=== PATIENT | male | born 1930 | race Caucasian/White ===

== ENCOUNTER → 2016-04-14 | Outpatient (CLI) | payer MEDICARE, BC ==
[~2016-04-14] MED LIST: ALBU.5I NEB; ALBU6.7H INH; ALPR.25 PO; ASPI-110 PO; AZIT250T3 PO; CALC600T10 PO; COUM4TAB PO; GLYB2.5T3 PO; IMDU30TA PO; ISOS20TA PO; LEVA750T PO; LISI10TA3 PO; MISC1CAP2 PO; MOME1AER2 INH; MULTTAB67 PO; OMEP20TA PO; PRED20 PO; PRED5TAB PO; THEO300T24 PO; TIOT1AER INH; TOPR50TA PO; ZOCO20TA PO
== END ==
LOC: PLAB 08:13
PROVIDERS: ATTEND Internal Medicine Interventional Cardiology
DX: E78.2 Mixed hyperlipidemia (principal)
CPT/HCPCS: 36415; 80061

== ENCOUNTER 2016-05-01 09:53 | Inpatient (IN) | payer MEDICARE, BC ==
[~2016-05-01] VITALS: Ht 175.3 cm; Wt 64.8 kg
[2016-05-01] VITALS (11 sets, daily range): BP systolic 118–159; BP diastolic 66–97; PULSE 78–101; RESP 16–24; TEMP 97–97.5; O2SAT 89–99
[~2016-05-01 09:53] MED LIST changes: -ISOS20TA PO; -LEVA750T PO; -PRED5TAB PO
--- NOTE | 2016-05-01 10:20 | PD ---
HPI Chief Complaint: Respiratory Symptoms Time Seen by Provider: 10:10 Travel History International Travel<30 days: No Contact w/Intl Traveler<30days: No Traveled to known affect area: No History of Present Illness HPI This 85-year-old male is complaining of shortness of breath. He has a history of COPD. He is on home oxygen at 2-4 L/m. The last few days he's been coughing. He's had increasing dyspnea on exertion. He has not had any chest pain. He has a history of COPD and has had pneumonia on several occasions. He also has a history of coronary artery disease and has had 4 stents in the past. He is currently on 5 mg of prednisone per day. Not aware of any fever or chills. He does have borderline diabetes. He is not bringing anything up when he coughs PFSH Past Medical History Hx Anticoagulant Therapy: Yes (coumadin) Asthma: Yes Atrial Fibrillation: Yes Blood Disorders: No Heart Rhythm Problems: Yes Cancer: No Cardiac Catheterization: Yes Cardiovascular Problems: Yes (htn on meds) High Cholesterol: Yes Chest Pain: No Congestive Heart Failure: No COPD: Yes Coronary Artery Disease: Yes Diabetes: Yes Endocrine: No Genitourinary: Yes Hepatitis: No Hiatal Hernia: No Hypertension: Yes Immune Disorder: No Musculoskeletal: No Neurologic: No Psychiatric: No Respiratory: Yes (copd with oxygen at home) Myocardial Infarction: No Thyroid Disease: No Past Surgical History Abdominal Surgery: Yes AICD: No Appendectomy: Yes Cardiac Surgery: No Cholecystectomy: Yes Coronary Stent: Yes Ear Surgery: No Endocrine Surgery: No Eye Surgery: Yes (RIGHT DETACHED RETINA; BILATERAL CATARACTS) Genitourinary Surgery: No Gynecologic Surgery: No Oral Surgery: No Pacemaker: No Thoracic Surgery: No Tonsillectomy: Yes Other Surgery: Yes Social History Alcohol Use: No Tobacco Use: No Substance Use: No Allergies-Medications (Allergen,Severity, Reaction): Coded Allergies: Codeine (Verified Allergy, Severe, "violently ill", 05/01/16) Lortab (Verified Allergy, Intermediate, n/v, 05/01/16) Tramadol (Verified Allergy, Intermediate, n/v, 05/01/16) Reported Meds & Prescriptions Reported Meds & Active Scripts Active Reported Prednisone 5 Mg Tab 5 Mg PO DAILY Isosorbide Mononitrate 20 Mg Tab 30 Mg PO BID Take 2 doses 7 hours apart. Zocor (Simvastatin) 20 Mg Tab 20 Mg PO HS Xanax (Alprazolam) 0.25 Mg Tab 0.25 Mg PO TID PRN Theophylline SR (Theophylline) 300 Mg Tab 150 Mg PO DAILY [place] (Misc Natural Products) 1 Cap 500 Mg PO DAILY Omeprazole 20 Mg Tab 20 Mg PO DAILY Multiple Vitamin 1 Tab 1 Tab PO DAILY Toprol XL (Metoprolol Succinate) 50 Mg Tab 50 Mg PO DAILY Lisinopril 10 Mg Tab 10 Mg PO DAILY Glyburide 2.5 Mg Tab 2.5 Mg PO DAILY Take with meals at the same time each day Coumadin (Warfarin) 4 Mg Tab 2 Mg PO MOFR Take 1/2 tablet (2mg) on Thursday ,Thu, Thursday Coumadin (Warfarin) 4 Mg Tab 4 Mg PO SUTUWETHSA Take 1 tablet (4mg) on Thursday,Thursday,, and Thursday Calcium + D3 (Calcium Carbonate-Cholecalciferol) 600-200 Mg-Unit Tab 1 Tab PO BID Aspirin 81 (Aspirin) 81 Mg Tabdr 81 Mg PO DAILY Proventil Hfa 6.7 GM Inh (Albuterol Sulfate) 90 Mcg/Act Aer 2 Puff INH DAILY PRN Albuterol Neb (Albuterol Sulfate) 2.5 Mg/0.5 Ml Neb 2.5 Mg NEB TID Note: The Albuterol Sulfate Inhalation Solution is concentrated and must be diluted. Read complete instructions carefully before using. Asmanex 30 Act Twisthaler (Mometasone 30 Act Inh) 220 Mcg/Act Inh 2 Puff INH DAILY Review of Systems General / Constitutional: No: Fever, Chills Eyes: No: Diploplia, Blurred Vision HENT: No: Headaches Cardiovascular: No: Chest Pain or Discomfort, Palpitations Respiratory: Positive: Cough, Shortness of Breath Gastrointestinal: No: Vomiting, Diarrhea Genitourinary: No: Urgency Musculoskeletal: No: Myalgias, Arthralgias Neurologic: No: Weakness, Dizziness Hematologic/Lymphatic: No: Easy Bruising Physical Exam Narrative GENERAL: Well-developed male. Oxygen saturation on arrival is 89% SKIN: Warm and dry. HEAD: Atraumatic. Normocephalic. EYES: Pupils equal and round. No scleral icterus. No injection or drainage. ENT: No nasal bleeding or discharge. Mucous membranes pink and moist. NECK: Trachea midline. No JVD. CARDIOVASCULAR: Regular rate and rhythm. No murmur appreciated. RESPIRATORY: There is accessory muscle use. There are bilateral wheezes and occasional rhonchi. Diminished breath sounds GASTROINTESTINAL: Abdomen soft, non-tender, nondistended. Hepatic and splenic margins not palpable. MUSCULOSKELETAL: No obvious deformities. No clubbing. No cyanosis. No edema. NEUROLOGICAL: Awake and alert. No obvious cranial nerve deficits. Motor grossly within normal limits. Normal speech. PSYCHIATRIC: Appropriate mood and affect; insight and judgment normal. Data Data Last Documented VS Vital Signs Date Time Temp Pulse Resp B/P Pulse Ox O2 Delivery O2 Flow Rate FiO2 05/01/16 11:28 88 18 98 Nasal Cannula 2.00 05/01/16 11:28 118/66 05/01/16 10:05 97.5 Orders Complete Blood Count With Diff (05/01/16 10:18) Comprehensive Metabolic Panel (05/01/16 10:18) B-Type Natriuretic Peptide (05/01/16 10:18) Magnesium (Mg) (05/01/16 10:18) Troponin I (05/01/16 10:18) Urinalysis - C+S If Indicated (05/01/16 10:18) Iv Access Insert/Monitor (05/01/16 10:18) Electrocardiogram (05/01/16 10:18) Ecg Monitoring (05/01/16 10:18) Oximetry (05/01/16 10:18) Oxygen Administration (05/01/16 10:18) Chest, Single Ap (05/01/16 10:18) Sodium Chloride 0.9% Flush (Ns Flush) (05/01/16 10:30) Methylprednisolone So Succ Inj (Solumedr (05/01/16 10:30) Albuterol-Ipratropium Neb (Duoneb Neb) (05/01/16 10:30) Theophylline (Aminophylline) (05/01/16 10:21) Prothrombin Time / Inr (Pt) (05/01/16 10:21) Admit Order (Ed Use Only) (05/01/16 11:46) Labs Laboratory Tests Test 05/01/16 11:10 White Blood Count 7.7 TH/MM3 Red Blood Count 5.05 MIL/MM3 Hemoglobin 15.5 GM/DL Hematocrit 46.0 % Mean Corpuscular Volume 91.2 FL Mean Corpuscular Hemoglobin 30.7 PG Mean Corpuscular Hemoglobin 33.7 % Concent Red Cell Distribution Width 13.3 % Platelet Count 207 TH/MM3 Mean Platelet Volume 7.8 FL Neutrophils (%) (Auto) 68.0 % Lymphocytes (%) (Auto) 14.9 % Monocytes (%) (Auto) 14.1 % Eosinophils (%) (Auto) 2.6 % Basophils (%) (Auto) 0.4 % Neutrophils # (Auto) 5.2 TH/MM3 Lymphocytes # (Auto) 1.1 TH/MM3 Monocytes # (Auto) 1.1 TH/MM3 Eosinophils # (Auto) 0.2 TH/MM3 Basophils # (Auto) 0.0 TH/MM3 CBC Comment DIFF FINAL Differential Comment Prothrombin Time 23.4 SEC Prothromb Time International 2.1 RATIO Ratio Sodium Level 138 MEQ/L Potassium Level 4.3 MEQ/L Chloride Level 101 MEQ/L Carbon Dioxide Level 30.1 MEQ/L Anion Gap 7 MEQ/L Blood Urea Nitrogen 13 MG/DL Creatinine 0.89 MG/DL Estimat Glomerular Filtration 81 ML/MIN Rate Random Glucose 81 MG/DL Calcium Level 8.6 MG/DL Magnesium Level 2.1 MG/DL Total Bilirubin 0.6 MG/DL Aspartate Amino Transf 15 U/L (AST/SGOT) Alanine Aminotransferase 19 U/L (ALT/SGPT) Alkaline Phosphatase 55 U/L Troponin I LESS THAN 0.02 NG/ML B-Type Natriuretic Peptide 110 PG/ML Total Protein 7.0 GM/DL Albumin 3.5 GM/DL [facility] Medical Decision Making Medical Screen Exam Complete: Yes Emergency Medical Condition: Yes Medical Record Reviewed: Yes Differential Diagnosis Differential includes COPD, CHF, pneumonia Narrative Course Chest x-rays read as negative. Patient has been given nebulizer treatments and Solu-Medrol. He still has some respiratory distress. Lungs show minimal improvement in his wheezing. Kaden Hawthorne MD May 01, 2016 10:20
[2016-05-01] MEDS ORDERED: methylPREDNISolone SOD SUCC 125 MG/2 ML VIAL IVP ONE (10:30)
[2016-05-01] MEDS ORDERED: SODIUM CHLORIDE 0.9% FLUSH 5 ML FLUSH IVF PRN ×2 (10:30→12:30)
[2016-05-01] MEDS: RESP: ALBUTEROL 2.5 MG/IPRATROPIUM 0.5 MG NEB (SCH) INH ×2 (10:38→10:39)
[2016-05-01] MEDS ORDERED: ISOS20TA PO (10:55)
[2016-05-01] MEDS ORDERED: PRED5TAB PO (11:02)
--- NOTE | 2016-05-01 11:08 | RADHPO ---
EXAM DATE/TIME: 05/01/2016 10:37 [facility] COMPARISON: CHEST SINGLE AP, February 06, 2016, 10:08. INDICATIONS : Short of breath of breath. MEDICAL HISTORY : Cardiovascular disease. Diabetes mellitus type 1. SURGICAL HISTORY : Appendectomy. Cholecystectomy. ENCOUNTER: Initial ACUITY: 2 days PAIN SCORE: 2/10 LOCATION: Bilateral chest FINDINGS: A single view of the chest demonstrates the lungs to be symmetrically aerated without evidence of mas s, infiltrate or effusion. The cardiomediastinal contours are unremarkable. Osseous structures are intact. CONCLUSION: No acute disease. Zaida Lange MD on May 01, 2016 at 11:06 Board Certified Radiologist. This report was verified electronically.
[2016-05-01 11:20] LABS: AUTOMATED NEUTROPHIL # 5.2 TH/MM3 (1.8-7.7); BASOPHIL % 0.4 % (0.0-2.0); EOSINOPHIL # 0.2 TH/MM3 (0-0.4); EOSINOPHIL % 2.6 % (0.0-4.0); HEMO FLAGS DIFF FINAL; LYMPH % 14.9 % (9.0-44.0); LYMPHOCYTE # 1.1 TH/MM3 (1.0-4.8); MEAN CELL VOLUME 91.2 FL (80.0-100.0); MEAN CORPUSCULAR HEMOGLOBIN 30.7 PG (27.0-34.0); MEAN CORPUSCULAR HGB CONC 33.7 % (32.0-36.0); MONO % 14.1 % (0.0-8.0); PLATELET COUNT 207 TH/MM3 (150-450); RED BLOOD COUNT 5.05 MIL/MM3 (4.50-5.90); RED CELL DISTRIBUTION WIDTH 13.3 % (11.6-17.2); WHITE BLOOD COUNT 7.7 TH/MM3 (4.0-11.0)
[2016-05-01 11:31] LABS: INTERNATIONAL NORMALIZED RATIO 2.1 RATIO; PROTHROMBIN TIME - PATIENT 23.4 SEC (9.8-11.6)
[2016-05-01 11:34] LABS: CHLORIDE 101 MEQ/L (98-107); POTASSIUM 4.3 MEQ/L (3.5-5.1); SODIUM (NA) 138 MEQ/L (136-145)
[2016-05-01 11:38] LABS: ANION GAP 7 MEQ/L (5-15); BICARBONATE 30.1 MEQ/L (21.0-32.0); BLOOD UREA NITROGEN 13 MG/DL (7-18); MAGNESIUM 2.1 MG/DL (1.5-2.5)
[2016-05-01 11:41] LABS: ALT (GPT) 19 U/L (12-78); AST (GOT) 15 U/L (15-37); GLOMERULAR FILTRATION RATE 81 ML/MIN (>89)
[2016-05-01 11:42] LABS: TOTAL BILIRUBIN ADULT 0.6 MG/DL (0.2-1.0)
[2016-05-01 11:44] LABS: ALKALINE PHOSPHATASE 55 U/L (45-117)
[2016-05-01] MEDS ORDERED: RESP: ALBUTEROL 2.5 MG/3 ML NEB (PRN) INH (12:30)
--- NOTE | 2016-05-01 13:36 | HHI.HP ---
cc: James Coombs MD [facility] James Coombs MD Admission Diagnosis COPD EXACERBATION Diagnoses: Chief Complaint: Increased dyspnea on exertion and shortness of breath Travel History International Travel<30 Days: No Contact w/Intl Traveler <30 Da: No Traveled to Known Affected Are: No History of Present Illness Patient is a 85-year-old gentleman with known history of COPD on 2-4 L at home as well as theophylline and bronchodilators. He had increased dyspnea on exertion for the last several days. He notes no chest pain and no nausea or vomiting. 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 Patient was a bit hypoxemic on arrival however at home he does use between 2 and 4 L. Patient had some high type blood pressures which improved with bronchodilation with nebulizer. Patient's been admitted to the hospital for further evaluation and treatment for apparent COPD exacerbation. Review of Systems Constitutional: DENIES: Diaphoretic episodes, Fatigue, Fever, Weight gain, Weight loss, Chills, Dizziness, Change in appetite, Night Sweats Eyes: DENIES: Blurred vision, Diplopia, Eye inflammation, Eye pain, Vision loss , Photosensitivity, Double Vision Ears, nose, mouth, throat: DENIES: Tinnitus, Hearing loss, Vertigo, Nasal discharge, Oral lesions, Throat pain, Hoarseness, Ear Pain, Running Nose, Epistaxis, Sinus Pain, Toothache, Odynophagia Respiratory: COMPLAINS OF: Sputum production, Shortness of breath, DENIES: Apneas, Cough, Snoring, Wheezing, Hemoptysis Cardiovascular: COMPLAINS OF: Dyspnea on Exertion Past Family Social History Past Medical History COPD with HOME O2 AFIB CAD (stents X4) DM2 HTN Past Surgical History Cardiac stents Left knee Right detached retina Bilateral cataracts Reported Medications Reviewed and the medical record, no new medications Allergies: Coded Allergies: Codeine (Verified Allergy, Severe, "violently ill", 05/01/16) Lortab (Verified Allergy, Intermediate, n/v, 05/01/16) Tramadol (Verified Allergy, Intermediate, n/v, 05/01/16) Active Ordered Medications Reviewed in the medical record Family History No respiratory problems with his family Social History Quit smoking in the , no alcohol Physical Exam Vital Signs Vital Signs Date Time Temp Pulse Resp B/P Pulse Ox O2 Delivery O2 Flow Rate FiO2 05/01/16 12:53 90 16 146/84 98 Room Air 2 05/01/16 12:53 90 16 98 Nasal Cannula 2 05/01/16 11:28 88 18 98 Nasal Cannula 2.00 05/01/16 11:28 88 18 118/66 98 Aerosol Mask 8 05/01/16 10:45 98 Nasal Cannula 2.00 05/01/16 10:29 78 22 141/85 98 Nasal Cannula 2 05/01/16 10:19 82 22 98 Nasal Cannula 2 05/01/16 10:15 98 Nasal Cannula 2 05/01/16 10:15 18 98 Nasal Cannula 2 05/01/16 10:05 97.5 89 24 159/94 89 Physical Exam GENERAL: This is a thin, well-developed patient, pursed lip breathing SKIN: No rashes, ecchymoses or lesions. Cool and dry. HEAD: Atraumatic. Normocephalic. No temporal or scalp tenderness. EYES: Pupils equal round and reactive. Extraocular motions intact. No scleral icterus. No injection or drainage. ENT: Nose without bleeding, purulent drainage or septal hematoma. Throat without erythema, tonsillar hypertrophy or exudate. Uvula midline. Airway patent. NECK: Trachea midline. No JVD or lymphadenopathy. Supple, nontender, no meningeal signs. CARDIOVASCULAR: Regular rate and rhythm without murmurs, gallops, or rubs. RESPIRATORY: decreased air flow bilat. No wheezes, rales, or rhonchi. GASTROINTESTINAL: Abdomen soft, non-tender, nondistended. No hepato-splenomegaly , or palpable masses. No guarding. MUSCULOSKELETAL: Extremities without clubbing, cyanosis, or edema. No joint tenderness, effusion, or edema noted. No calf tenderness. Negative Homans sign bilaterally. NEUROLOGICAL: Awake and alert. Cranial nerves II through XII intact. Motor and sensory grossly within normal limits. Five out of 5 muscle strength in all muscle groups. Normal speech. Laboratory Laboratory Tests Test 1/26/17 11:10 White Blood Count 7.7 Red Blood Count 5.05 Hemoglobin 15.5 Hematocrit 46.0 Mean Corpuscular Volume 91.2 Mean Corpuscular Hemoglobin 30.7 Mean Corpuscular Hemoglobin 33.7 Concent Red Cell Distribution Width 13.3 Platelet Count 207 Mean Platelet Volume 7.8 Neutrophils (%) (Auto) 68.0 Lymphocytes (%) (Auto) 14.9 Monocytes (%) (Auto) 14.1 Eosinophils (%) (Auto) 2.6 Basophils (%) (Auto) 0.4 Neutrophils # (Auto) 5.2 Lymphocytes # (Auto) 1.1 Monocytes # (Auto) 1.1 Eosinophils # (Auto) 0.2 Basophils # (Auto) 0.0 CBC Comment DIFF FINAL Differential Comment Prothrombin Time 23.4 Prothromb Time International 2.1 Ratio Sodium Level 138 Potassium Level 4.3 Chloride Level 101 Carbon Dioxide Level 30.1 Anion Gap 7 Blood Urea Nitrogen 13 Creatinine 0.89 Estimat Glomerular Filtration 81 Rate Random Glucose 81 Calcium Level 8.6 Magnesium Level 2.1 Total Bilirubin 0.6 Aspartate Amino Transf 15 (AST/SGOT) Alanine Aminotransferase 19 (ALT/SGPT) Alkaline Phosphatase 55 Troponin I LESS THAN 0.02 B-Type Natriuretic Peptide 110 Total Protein 7.0 Albumin 3.5 Theophylline Level 2.7 Result Diagram: 05/01/16 1110 05/01/16 1110 Imaging Last Impressions Chest X-Ray 05/01/16 1018 Signed Impressions: Service Date/Time: April 10:37 - CONCLUSION: No acute disease. Zaida Lange MD Assessment and Plan Problem List: (1) COPD exacerbation ICD Code: J44.1 Status: Acute Plan: Patient on home O2 for (2-4 L) continue with bronchodilators, IV steroids , IV Levaquin and follow closely Pulmonary consult pending Ptn on Bronchodilators, theophylline at home, follows with [facility] (2) Afib ICD Code: I48.91 Status: Acute Plan: Controlled , cont Coumadin/aspirin and metoprolol (3) DM2 (diabetes mellitus, type 2) ICD Code: E11.9 Status: Acute Physician Certification 2 Midnight Certification Type: Admission for Inpatient Services Order for Inpatient Services The services are ordered in accordance with Medicare regulations or non- Medicare payer requirements, as applicable. In the case of services not specified as inpatient-only, they are appropriately provided as inpatient services in accordance with the 2-midnight benchmark. Estimated LOS (days): 3 3 days is the estimated time the patient will need to remain in the hospital, assuming treatment plan goals are met and no additional complications. Post-Hospital Plan: Rachael Starr MD May 01, 2016 13:36
[2016-05-01] MEDS ORDERED: RESP: ALBUTEROL 2.5 MG/IPRATROPIUM 0.5 MG NEB (PRN) NEB (14:00)
[2016-05-01] MEDS: RESP: ALBUTEROL 2.5 MG/IPRATROPIUM 0.5 MG NEB (SCH) NEB ×2 (15:20→19:36)
[2016-05-01] MEDS ORDERED: WARFARIN SOD 2 MG TAB PO SCH (16:00)
[2016-05-01] MEDS: LEVOFLOXACIN 750 MG PREMIX INJ 150 ML IV SCH (16:11)
[2016-05-01] MEDS: WARFARIN SOD 4 MG TAB PO SCH (16:11)
[2016-05-01 16:44] LABS: BLOOD, URINE TRACE (NEG); GLUCOSE,URINE NEG (NEG); KETONE, URINE 15 mg/dL (NEG); NITRITE,URINE NEG (NEG)
[2016-05-01 16:56] LABS: METHOD OF COLLECTION CLEAN CATCH; URINE COLOR YELLOW (YELLW/STRAW); WBC, URINE 0-2 /hpf (0-5)
[2016-05-01 16:59] LABS: COMMENT (UR) CULT NOT INDICATED; CULTURE IF INDICATED CULT NOT INDICATED; SQUAMOUS EPITHELIAL CELL URINE 0-5 /hpf (0-5)
[2016-05-01 18:32] LABS: BLOOD GAS CARBOXYHEMOGLOBIN 1.6 % (0-4); BLOOD GAS HCO3 25 mmol/L (22-26); BLOOD GAS METHEMOGLOBIN 0.9 % (0-2); BLOOD GAS O2 HGB SATURATION 96 % (90-100); BLOOD GAS OXYGEN CONTENT 20.6 Vol % (12.0-20.0); BLOOD GAS PCO2 42 mmHG (38-42); BLOOD GAS PO2 110 mmHG (61-120); BLOOD GAS TOTAL HGB 15.2 G/DL (12.0-16.0); TEMP CORR TO 98.6
[2016-05-01 18:33] LABS: CRITICAL VALUE NO; DRAW SITE LT RADIAL; LITER FLOW 2 L/M; NUMBER OF ARTERIAL PUNCTURES 1; OXYGEN DEVICE NASAL CANNULA; STAT NO; ULNAR PULSE PRESENT
[2016-05-01] MEDS: PRAVASTATIN SOD 40 MG TAB PO SCH (20:23)
[2016-05-01] MEDS: SODIUM CHLORIDE 0.9% FLUSH 5 ML FLUSH IVF SCH (20:24)
[2016-05-01] MEDS: ALPRAZolam 0.25 MG TAB PO PRN (20:26)
[2016-05-01] MEDS: methylPREDNISolone SOD SUCC 40 MG/1 ML VIAL IV PUSH SCH (20:26)
[2016-05-01] MEDS ORDERED: ISOSORBIDE MONONITRATE 20 MG TAB PO SCH (21:00)
[2016-05-01] MEDS ORDERED: diphenhydrAMINE HCL 25 MG CAP PO ONE (22:15)
--- NOTE | 2016-05-01 22:34 | RADHPO ---
EXAM DATE/TIME: 05/01/2016 18:07 [facility] COMPARISON: CT PULMONARY ANGIOGRAM, February 06, 2016, 11:55. INDICATIONS : Increased shortness of breath. Cough. RADIATION DOSE: 7.99 CTDIvol (mGy) MEDICAL HISTORY : Chronic obstructive pulmonary disease. Hypertension. Diabetes mellitus type 2. SURGICAL HISTORY : CABG Kyphoplasty.Cholecystectomy. Appendectomy . ENCOUNTER: Initial ACUITY: 1 day PAIN SCALE: 0/10 LOCATION: Bilateral chest TECHNIQUE: Volumetric scanning of the chest was performed. Using automated exposure control and adjustment of t he mA and/or kV according to patient size, radiation dose was kept as low as reasonably achievable to obtain optimal diagnostic quality images. FINDINGS: LUNGS: Emphysema. There is no consolidation or pneumothorax. No concerning pulmonary nodule is visualized. PLEURAE: There is no pleural thickening or pleural effusion. MEDIASTINUM: The heart and great vessels demonstrate no acute abnormality. There is no mediastinal or hilar lymph adenopathy. Coronary calcifications present. AXILLAE: Within normal limits. No lymphadenopathy. MUSCULOSKELETAL: Within normal limits for patient age. MISCELLANEOUS: Renal cysts. CONCLUSION: No acute findings in the chest Hector Fofana MD on May 01, 2016 at 22:29 Board Certified Radiologist. This report was verified electronically.
[2016-05-02] VITALS (11 sets, daily range): BP systolic 102–165; BP diastolic 85–96; PULSE 75–88; RESP 20–24; TEMP 96.5–98.2; O2SAT 90–98
[2016-05-02 06:06] LABS: INTERNATIONAL NORMALIZED RATIO 2.2 RATIO; PROTHROMBIN TIME - PATIENT 25.2 SEC (9.8-11.6)
[2016-05-02] MEDS: ISOSORBIDE MONONITRATE 30 MG TAB PO SCH (06:36)
--- NOTE | 2016-05-02 07:11 | MB ---
cc: Inder HSU M.D. DATE OF CONSULTATION: 05/01/2016 HISTORY OF PRESENT ILLNESS Mr. 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 He is a former heavy smoker although he quit smoking many years ago. I followed him for several years and recently saw him as an outpatient at which time he was debilitated but stable. However, he came to the emergency room today with increasing shortness of breath, a little bit of congestion, said he had difficulty clearing the congestion, but no purulent sputum, no hemoptysis, no chest pain, no increased edema. He says that he is exhausted and has difficulty walking any distances at home. His last admission to the hospital was in 2011. He has been managed as an outpatient reasonably well. He did have an ER visit in February for an exacerbation but was not hospitalized. PAST MEDICAL HISTORY 1. Coronary artery disease with stent placement/CHF. 2. GERD. 3. Hypertension. 4. Hyperlipidemia. 5. Some anxiety and depression. 6. BPH, but no malignancy. ALLERGIES 1. CODEINE. 2. INTOLERANT TO NARCOTICS. MEDICATIONS Current medications are reviewed in the EMR. SOCIAL HISTORY , living with his . Minimal alcohol use. Heavy smoking history, although quit now. REVIEW OF SYSTEMS No headache. No visual change. No lightheadedness or syncope. No reflux symptoms, abdominal pain or diarrhea. No increased swelling in his legs. No orthopnea or PND. No anginal chest pain recently. PHYSICAL EXAMINATION GENERAL: An elderly, frail-appearing white male in no distress at rest. VITAL SIGNS: Temperature 97 degrees, pulse 90, respirations 18, blood pressure 140/84. Saturation 98% on two liters. HEENT: Sclera pale, anicteric. Mucous membranes are moist. NECK: Neck veins are flat. No adenopathy in the neck or supraclavicular region. CHEST: Severely diminished throughout but no significant congestion or wheezes. Regular rhythm. No harsh murmur. No audible S3. ABDOMEN: Soft. EXTREMITIES: No pitting edema. No cyanosis or clubbing. IMAGING Chest x-ray: Nothing acute. LABORATORY Influenza A and B antigens and nasal wash are negative. White count 7700, hemoglobin 15. Theophylline level 2.7. INR 2.1. BUN is 13, creatinine 0.89. DISCUSSION Mr. Cordero presents with exhaustion and dyspnea on exertion, probably related to his severe underlying COPD. He has been on oxygen continuously as well as a low dose of prednisone with bronchodilators. No obvious acute change but will try to collect a sputum to see if there is any residual infection. In light of the previous coronary disease check an echo to be sure that has not deteriorated. Continue him on bronchodilators and a short course of corticosteroids and antibiotics for an acute exacerbation. Further diagnostic and/or therapeutic intervention will depend on his ongoing clinical course and response to therapy. Thank you for asking me to see him with you in consultation. R. MD MADONNA Amaral/WESLEY /5:57 PM /7:01 AM
[2016-05-02] MEDS: RESP: ALBUTEROL 2.5 MG/IPRATROPIUM 0.5 MG NEB (SCH) NEB ×3 (07:44→19:39)
[2016-05-02] MEDS: METOPROLOL SUCCINATE 50 MG EXTENDED RELEASE TAB PO SCH (08:30)
[2016-05-02] MEDS: methylPREDNISolone SOD SUCC 40 MG/1 ML VIAL IV PUSH SCH ×2 (08:30→20:39)
[2016-05-02] MEDS: ASPIRIN EC 81 MG TABEC PO SCH (08:30)
[2016-05-02] MEDS: glyBURIDE 2.5 MG TAB PO SCH (08:31)
[2016-05-02] MEDS: LISINOPRIL 10 MG TAB PO SCH (08:31)
[2016-05-02] MEDS: PANTOPRAZOLE SOD 20 MG DELAYED RELEASE TAB PO SCH (08:31)
[2016-05-02] MEDS: SODIUM CHLORIDE 0.9% FLUSH 5 ML FLUSH IVF SCH ×2 (08:32→20:39)
[2016-05-02] MEDS: THEOPHYLLINE 100 MG EXTENDED RELEASE CAP PO SCH (08:37)
[2016-05-02] MEDS ORDERED: THEOPHYLLINE ER 12 HR 300 MG TABCR PO SCH (09:00)
--- NOTE | 2016-05-02 10:34 | HHI.PR ---
Subjective Remarks Patient seen and evaluated today in follow-up for. Pulmonary consult appreciated. Echocardiogram pending. CT exam noted and discussed with patient. Patient says he feels better today. Objective Vitals Vital Signs Date Time Temp Pulse Resp B/P Pulse Ox O2 Delivery O2 Flow Rate FiO2 05/02/16 08:00 96.8 85 22 149/94 98 05/02/16 07:46 98 Nasal Cannula 2.00 05/02/16 04:00 96.5 83 20 151/94 98 05/02/16 00:00 97.1 88 20 128/85 98 05/01/16 23:00 83 05/01/16 20:00 94 05/01/16 20:00 97.1 101 18 132/97 97 05/01/16 19:35 98 Nasal Cannula 2.00 05/01/16 16:00 97.1 101 20 143/86 96 05/01/16 13:30 97.0 81 20 148/80 99 05/01/16 12:53 90 16 146/84 98 Room Air 2 05/01/16 12:53 90 16 98 Nasal Cannula 2 05/01/16 11:28 88 18 98 Nasal Cannula 2.00 05/01/16 11:28 88 18 118/66 98 Aerosol Mask 8 05/01/16 10:45 98 Nasal Cannula 2.00 I/O 05/01/16 05/01/16 05/01/16 05/02/16 05/02/16 05/02/16 07:00 15:00 23:00 07:00 15:00 23:00 Intake Total 240 ml 240 ml Balance 240 ml 240 ml Intake Oral 240 ml 240 ml # Voids 2 2 # Bowel Movements 0 0 Result Diagram: 05/01/16 1110 05/01/16 1110 Imaging Last Impressions Chest X-Ray 05/01/16 1018 Signed Impressions: Service Date/Time: April 10:37 - CONCLUSION: No acute disease. Zaida Lange MD Chest CT 05/01/16 0000 Signed Impressions: Service Date/Time: April 18:07 - CONCLUSION: No acute findings in the chest Hector Fofana MD Objective Remarks GENERAL: This is a frail elderly male, in no apparent distress. CARDIOVASCULAR: Regular rate and rhythm without murmurs, gallops, or rubs. RESPIRATORY: Improved air flow bilaterally, I don't appreciate any wheezes or rhonchi GASTROINTESTINAL: Abdomen soft, non-tender, nondistended. Normal active bowel sounds MUSCULOSKELETAL: Extremities without clubbing, cyanosis, or edema. NEURO: Alert & Oriented x4 to person, place, time, situation. Moves all ext x4 A/P Problem List: (1) COPD exacerbation ICD Code: J44.1 Status: Acute Plan: Patient on home O2 for (2-4 L) continue with bronchodilators, IV steroids , IV Levaquin and follow closely Pulmonary consult appreciated Follow [facility] CT chest WNL on my review (2) Afib ICD Code: I48.91 Status: Acute Plan: Controlled , cont Coumadin/aspirin and metoprolol INR 2.2 (3) DM2 (diabetes mellitus, type 2) ICD Code: E11.9 Status: Acute Plan: Cont ssi, ADA Diet Diet controlled at home Discharge Planning likely home 1-2 days Rachael Casey MD May 02, 2016 10:34
--- NOTE | 2016-05-02 14:25 | EC ---
Study Study Date:05/02/2016 STUDY CONCLUSIONS SUMMARY - Left ventricle: The cavity size was normal. Wall thickness was normal. Systolic function was normal. The estimated ejection fraction was 60%. Wall motion was normal; there were no regional wall motion abnormalities. - Tricuspid valve: Mild regurgitation. - Pulmonary arteries: PA peak pressure: 39mm Hg (S). If LV function is below 40, please consider prescribing an ACEI or ARB or document rationale for non-use. PROCEDURE DATA STUDY STATUS: Elective. Procedure: Transthoracic echocardiography. Image quality was good. Scanning was performed from the parasternal, apical, and subcostal acoustic windows. Study completion: The patient tolerated the procedure well. Transthoracic echocardiography. M-mode, complete 2D, complete spectral Doppler, and color Doppler. Patient status: Inpatient. CARDIAC ANATOMY LEFT VENTRICLE: The cavity size was normal. Wall thickness was normal. Systolic function was normal. The estimated ejection fraction was 60%. Wall motion was normal; there were no regional wall motion abnormalities. AORTIC VALVE: Trileaflet; normal thickness leaflets. Doppler: Transvalvular velocity was within the normal range. There was no stenosis. No regurgitation. AORTA: Aortic root: The aortic root was normal in size. MITRAL VALVE: Structurally normal valve. Doppler: Transvalvular velocity was within the normal range. There was no evidence for stenosis. Trace regurgitation. LEFT ATRIUM: The atrium was normal in size. RIGHT VENTRICLE: The cavity size was normal. Wall thickness was normal. PULMONIC VALVE: Doppler: Transvalvular velocity was within the normal range. There was no evidence for stenosis. No regurgitation. TRICUSPID VALVE: Structurally normal valve. Doppler: Transvalvular velocity was within the normal range. Mild regurgitation. PULMONARY ARTERY: The main pulmonary artery was normal-sized. Systolic pressure was at the upper limits of normal. RIGHT ATRIUM: The atrium was normal in size. PERICARDIUM: There was no pericardial effusion. SYSTEMIC VEINS: Inferior vena cava: The vessel was normal in size. BASIC MEASUREMENTS ADULT Normal Left ventricle LV internal dimension, ED, chordal level, *40.8 mm 43-52 PLAX LV internal dimension, ES, chordal level, 31.6 mm 23-38 PLAX Fractional shortening, chordal level, PLAX *23 % >29 LV posterior wall thickness, ED 9.8 mm IVS/LVPW ratio, ED 1.2 <1.3 Ventricular septum Septal thickness, ED 11.8 mm Aortic valve Leaflet separation 19 mm 15-26 Right ventricle RV internal dimension, ED, PLAX 22.7 mm 19-38 BASIC MEASUREMENTS ADULT Normal Aortic valve Leaflet separation 19 mm 15-26 Aorta Root diameter, ED 27 mm 20-37 Left atrium Anterior-posterior dimension, ES 35 mm 19-40 LA/aortic root ratio 1.3 DOPPLER MEASUREMENTS ADULT Normal Main pulmonary artery Pressure, S *39 mm Hg =30 Tricuspid valve Regurgitant peak velocity 269 cm/s Peak RV-RA gradient, S 29 mm Hg Maximal regurgitant velocity 269 cm/s Systemic veins Estimated CVP 10 mm Hg Right ventricle RV pressure, S *39 mm Hg <30 LEGEND: Mean values are shown as u=mean value. Asterisk (*) thomas values outside specified normal range. Prepared and signed by Seth Olvera [id number]
[2016-05-02] MEDS ORDERED: WARFARIN SOD 2 MG TAB PO SCH (16:00)
[2016-05-02] MEDS: LEVOFLOXACIN 750 MG PREMIX INJ 150 ML IV SCH (16:23)
--- NOTE | 2016-05-02 16:58 | EKG ---
Date Performed: 05/01/2016 Time Performed: 10:31:24 PTAGE: 85 years EKG: Sinus rhythm with PAC(s) Poor R wave progression - probable normal variant Septal T wave changes are nonspecific Borderline ECG PREVIOUS TRACING : 02/06/2016 09.53 Compared to prior tracing no significant change DOCTOR: Tu Sousa Interpretating Date/Time 05/02/2016 16:56:44
[2016-05-02] MEDS: ALPRAZolam 0.25 MG TAB PO PRN (20:39)
[2016-05-02] MEDS: PRAVASTATIN SOD 40 MG TAB PO SCH (20:39)
[2016-05-02] MEDS ORDERED: diphenhydrAMINE HCL 50 MG CAP PO PRN (21:45)
[2016-05-02] MEDS ORDERED: cloNIDine HCL 0.1 MG TAB PO ONE (21:45)
[2016-05-03] VITALS (9 sets, daily range): BP systolic 130–172; BP diastolic 61–97; PULSE 70–92; RESP 18–22; TEMP 95.9–98; O2SAT 96–98
[2016-05-03] MEDS: ISOSORBIDE MONONITRATE 30 MG TAB PO SCH (06:43)
[2016-05-03] MEDS: RESP: ALBUTEROL 2.5 MG/IPRATROPIUM 0.5 MG NEB (SCH) NEB ×3 (07:37→19:13)
[2016-05-03] MEDS: LISINOPRIL 10 MG TAB PO SCH (09:12)
[2016-05-03] MEDS: METOPROLOL SUCCINATE 50 MG EXTENDED RELEASE TAB PO SCH (09:12)
[2016-05-03] MEDS: glyBURIDE 2.5 MG TAB PO SCH (09:12)
[2016-05-03] MEDS: ASPIRIN EC 81 MG TABEC PO SCH (09:12)
[2016-05-03] MEDS: PANTOPRAZOLE SOD 20 MG DELAYED RELEASE TAB PO SCH (09:12)
[2016-05-03] MEDS: THEOPHYLLINE 100 MG EXTENDED RELEASE CAP PO SCH (09:12)
[2016-05-03] MEDS: methylPREDNISolone SOD SUCC 40 MG/1 ML VIAL IV PUSH SCH (09:12)
[2016-05-03] MEDS: SODIUM CHLORIDE 0.9% FLUSH 5 ML FLUSH IVF SCH ×2 (09:13→21:00)
[2016-05-03] MEDS: ALPRAZolam 0.25 MG TAB PO PRN ×2 (10:22→17:03)
--- NOTE | 2016-05-03 11:51 | HHI.PR ---
Subjective Remarks Patient seen and evaluated today in follow-up for COPD exacerbation doing well. Patient feels as if he is finally able to breathe back to baseline today. Blood pressure slightly elevated. Discussed with patient and spouse Objective Vitals Vital Signs Date Time Temp Pulse Resp B/P Pulse Ox O2 Delivery O2 Flow Rate FiO2 05/03/16 08:00 95.9 77 21 158/89 05/03/16 07:34 97 2.00 05/03/16 04:00 98.0 70 20 130/61 96 05/03/16 01:47 97.9 76 22 149/97 97 05/02/16 23:00 75 05/02/16 22:17 86 142/93 05/02/16 20:28 98.2 87 24 102/ 90 05/02/16 20:00 87 05/02/16 19:40 98 Nasal Cannula 2.00 05/02/16 16:00 97.8 83 20 145/95 97 05/02/16 12:00 96.8 85 24 165/96 96 I/O 05/02/16 05/02/16 05/02/16 05/03/16 05/03/16 05/03/16 07:00 15:00 23:00 07:00 15:00 23:00 Intake Total 240 ml 650 ml Balance 240 ml 650 ml Intake Oral 240 ml 650 ml # Voids 2 3 1 # Bowel Movements 0 Result Diagram: 05/01/16 1110 05/01/16 1110 Objective Remarks GENERAL: This is a frail elderly male, in no apparent distress. CARDIOVASCULAR: Regular rate and rhythm without murmurs, gallops, or rubs. RESPIRATORY: Improved air flow bilaterally, I don't appreciate any wheezes or rhonchi GASTROINTESTINAL: Abdomen soft, non-tender, nondistended. Normal active bowel sounds MUSCULOSKELETAL: Extremities without clubbing, cyanosis, or edema. NEURO: Alert & Oriented x4 to person, place, time, situation. Moves all ext x4 A/P Problem List: (1) COPD exacerbation ICD Code: J44.1 Status: Acute Plan: Patient on home O2 (2-4 L at home) continue with bronchodilators, wean steroids (steroid dependent) PO abx and follow closely Pulmonary consult appreciated Echo wnl (2) Afib ICD Code: I48.91 Status: Acute Plan: Controlled , cont Coumadin/aspirin and metoprolol INR 2.2 yesterday (3) DM2 (diabetes mellitus, type 2) ICD Code: E11.9 Status: Acute Plan: Cont ssi, ADA Diet Diet controlled at home (4) HTN (hypertension) ICD Code: I10 Status: Acute Plan: Controlled on current BP Meds wean Steroids Assessment and Plan DVT ppx on Coumadin Discharge Planning likely home in Rachael Ball MD May 03, 2016 11:51
[2016-05-03] MEDS ORDERED: LEVOFLOXACIN 750 MG TAB PO SCH (15:00)
[2016-05-03] MEDS: WARFARIN SOD 4 MG TAB PO SCH (16:00)
[2016-05-03] MEDS: PRAVASTATIN SOD 40 MG TAB PO SCH (20:57)
[2016-05-04] VITALS: BP 189/117; PULSE 79; RESP 20; TEMP 96.8; O2SAT 100
[2016-05-04] MEDS: ALPRAZolam 0.25 MG TAB PO PRN ×2 (01:16→09:12)
[2016-05-04 02:15] VITALS: BP 142/82
[2016-05-04] MEDS: ISOSORBIDE MONONITRATE 30 MG TAB PO SCH (06:19)
[2016-05-04 08:00] VITALS: BP_SYST 154; BP_SYST 175; BP_DIAS 80; BP_DIAS 95; PULSE 76; RESP 18; TEMP 96.6; O2SAT 98
[2016-05-04] MEDS: RESP: ALBUTEROL 2.5 MG/IPRATROPIUM 0.5 MG NEB (SCH) NEB (08:38)
[2016-05-04 08:40] VITALS: O2SAT 98
[2016-05-04 08:56] LABS: INTERNATIONAL NORMALIZED RATIO 4.2 RATIO; PROTHROMBIN TIME - PATIENT 48.9 SEC (9.8-11.6)
[2016-05-04] MEDS ORDERED: predniSONE 20 MG TAB PO SCH (09:00)
[2016-05-04] MEDS: METOPROLOL SUCCINATE 50 MG EXTENDED RELEASE TAB PO SCH (09:10)
[2016-05-04] MEDS: THEOPHYLLINE 100 MG EXTENDED RELEASE CAP PO SCH (09:10)
[2016-05-04] MEDS: glyBURIDE 2.5 MG TAB PO SCH (09:10)
[2016-05-04] MEDS: LISINOPRIL 10 MG TAB PO SCH (09:10)
[2016-05-04] MEDS: SODIUM CHLORIDE 0.9% FLUSH 5 ML FLUSH IVF SCH (09:10)
[2016-05-04] MEDS: PANTOPRAZOLE SOD 20 MG DELAYED RELEASE TAB PO SCH (09:11)
[2016-05-04] MEDS: ASPIRIN EC 81 MG TABEC PO SCH (09:11)
--- NOTE | 2016-05-04 09:36 | HHI.PR ---
Subjective Remarks Follow-up for COPD exacerbation. Patient states he feels much better. He states he walked to the bathroom and does not have significant shortness of breath with exertion. He denies any fevers overnight. Objective Vitals Vital Signs Date Time Temp Pulse Resp B/P Pulse Ox O2 Delivery O2 Flow Rate FiO2 05/04/16 08:40 98 Nasal Cannula 2.00 05/04/16 08:00 96.6 76 18 175/95 98 154/80 05/04/16 02:15 142/82 05/04/16 00:00 96.8 79 20 189/117 100 05/03/16 20:28 96.9 86 22 143/78 98 05/03/16 19:13 97 Nasal Cannula 2.00 05/03/16 17:24 76 05/03/16 16:00 97.9 92 20 172/96 97 05/03/16 12:00 97.7 71 18 140/86 97 I/O 05/03/16 05/03/16 05/03/16 05/04/16 05/04/16 05/04/16 07:00 15:00 23:00 07:00 15:00 23:00 # Voids 1 2 Result Diagram: 05/01/16 1110 05/01/16 1110 Imaging Last Impressions Chest X-Ray 05/01/16 1018 Signed Impressions: Service Date/Time: April 10:37 - CONCLUSION: No acute disease. Zaida Lange MD Chest CT 05/01/16 0000 Signed Impressions: Service Date/Time: April 18:07 - CONCLUSION: No acute findings in the chest Hector Fofana MD Objective Remarks GENERAL: Pleasant elderly patient in no apparent distress. SKIN: Warm and dry. CARDIOVASCULAR: Regular rate and rhythm. RESPIRATORY: No accessory muscle use. O2 via nasal cannula at 2 L. Mild bibasilar wheezing. GASTROINTESTINAL: Abdomen soft, non-tender, nondistended. MUSCULOSKELETAL: No lower extremity edema bilaterally. NEUROLOGICAL: Awake and alert. Motor grossly within normal limits. Normal speech. PSYCHIATRIC: Appropriate mood and affect; insight and judgment normal. Urinary Catheter: No Vascular Central Line Catheter: No A/P Problem List: (1) COPD exacerbation ICD Code: J44.1 Status: Acute (2) Afib ICD Code: I48.91 Status: Acute (3) DM2 (diabetes mellitus, type 2) ICD Code: E11.9 Status: Acute (4) HTN (hypertension) ICD Code: I10 Status: Acute Assessment and Plan (1) COPD exacerbation -Patient on home O2 (2-4 L at home), currently on 2L. Continue with bronchodilators, wean steroids (steroid dependent). -PO abx and follow closely -Pulmonary consultation appreciated -Echo with EF of 60%. Trace mitral regurgitation and mild tricuspid regurgitation. PA pressure at the upper limits of normal. -Influenza negative. -Legionella antigen negative. -Sputum culture pending. Final Gram stain with moderate white blood cells and many gram-positive cocci in pairs, clusters, and chains. (2) Afib -Controlled. Continue Coumadin/aspirin and metoprolol -INR elevated at 4.[address] me [address] Palencia monitors his INR at his office. The patient is advised that he will need to follow-up at the office tomorrow for recheck of INR prior to taking Coumadin tomorrow. He and understand. -Patient's requests information regarding Coumadin diet as there has been some confusion in the past regarding this. I will ask lining caser for educational material. (3) DM2 (diabetes mellitus, type 2) -Cont SSI, ADA Diet -Diet controlled at home (4) HTN (hypertension) -Patient had elevated blood pressure through the night and this morning. -Wean Steroids -Will monitor the patient's blood pressure this morning as BP was high prior to antihypertensive administration. We can adjust medication if it remains elevated although it is likely high due to nebulizer treatments and steroids. DVT ppx: on Coumadin Discharge Planning Patient and his deny need for home health care. Patient has oxygen at home. The patient is advised to have INR rechecked at Dr. Palencia's office tomorrow. Patient will likely be discharged this afternoon after ensuring blood pressure is stable. Alicia Ag May 04, 2016 09:36
[2016-05-04 12:00] VITALS: BP 122/80; PULSE 73; RESP 18; TEMP 96.7; O2SAT 98
--- NOTE | 2016-05-04 12:14 | HHI.DCPOC ---
Discharge Care Plan Diagnosis: (1) COPD exacerbation (2) HTN (hypertension) Your Health Problems Are: Shortness of Breath Goals to Promote Your Health * To prevent worsening of your condition and complications * To maintain your health at the optimal level Directions to Meet Your Goals Take your medications as prescribed Follow your dietary instruction Follow activity as directed Keep your appointments as scheduled Take your immunizations and boosters as scheduled If your symptoms worsen call your PCP, if no PCP go to Urgent Care Center or Emergency Room Smoking is Dangerous to Your Health. Avoid second hand smoke Call the 24-hour hour crisis hotline for domestic abuse at Alicia Ag May 04, 2016 12:14
[2016-05-04] MEDS ORDERED: LEVA750T PO (13:48)
[2016-05-04] MEDS ORDERED: PRED20 PO (13:48)
--- NOTE | 2016-05-04 13:51 | HHI.DS ---
cc: James Coombs MD Discharge Summary Admission Date May 01, 2016 at 11:47 Discharge Date: May 04, 2016 Admitting Diagnosis COPD EXACERBATION (1) COPD exacerbation ICD Code: J44.1 (2) Afib ICD Code: I48.91 (3) DM2 (diabetes mellitus, type 2) ICD Code: E11.9 (4) HTN (hypertension) ICD Code: I10 Procedures none Brief History - From Admission Patient is a 85-year-old gentleman with known history of COPD on 2-4 L at home as well as theophylline and bronchodilators. He had increased dyspnea on exertion for the last several days. He notes no chest pain and no nausea or vomiting. He does follow-up with his speech and language clinician next he saw him a few weeks ago without any troubles or complaints however since that time he developed increased dyspnea on exertion and sputum production and came to the emergency room for further evaluation. Patient was a bit hypoxemic on arrival however at home he does use between 2 and 4 L. Patient had some high type blood pressures which improved with bronchodilation with nebulizer. Patient's been admitted to the hospital for further evaluation and treatment for apparent COPD exacerbation. CBC/BMP: 05/01/16 1110 05/01/16 1110 Significant Findings Laboratory Tests Test 05/01/16 05/01/16 05/02/16 05/04/16 16:10 18:25 05:05 07:50 Urine Ketones 15 mg/dL (NEG) Urine Occult Blood TRACE (NEG) Arterial Blood Oxygen Content 20.6 Vol % (12.0-20.0) Prothrombin Time 25.2 SEC 48.9 SEC (9.8-11.6) (9.8-11.6) Imaging Last Impressions Chest X-Ray 05/01/16 1018 Signed Impressions: Service Date/Time: April 10:37 - CONCLUSION: No acute disease. Zaida Lange MD Chest CT 05/01/16 0000 Signed Impressions: Service Date/Time: April 18:07 - CONCLUSION: No acute findings in the chest Hector Fofana MD PE at Discharge GENERAL: Pleasant elderly patient in no apparent distress. SKIN: Warm and dry. CARDIOVASCULAR: Regular rate and rhythm. RESPIRATORY: No accessory muscle use. O2 via nasal cannula at 2 L. Mild bibasilar wheezing. GASTROINTESTINAL: Abdomen soft, non-tender, nondistended. MUSCULOSKELETAL: No lower extremity edema bilaterally. NEUROLOGICAL: Awake and alert. Motor grossly within normal limits. Normal speech. PSYCHIATRIC: Appropriate mood and affect; insight and judgment normal. Pt update on day of discharge Follows patient seen and evaluated today in follow-up for COPD exacerbation. Much better. Blood pressures improved after blood pressure medications (likely elevated due to steroids) discharge plans discussed with patient and spouse Hospital Course Patient seen and treated for COPD exacerbation, atrial fibrillation diabetes mellitus. Patient did well with bronchodilators, antibiotics and increase in steroids. He was seen by his speech and language clinician did have an echocardiogram which was within normal limits for him. Patient was discharged home to follow-up with his speech and language clinician. Sputum cultures are still pending Pt Condition on Discharge: Good Discharge Disposition: Discharge Home Discharge Time: > 30 minutes Discharge Instructions DIET: Follow Instructions for: As Tolerated, No Restrictions Activities you can perform: Regular-No Restrictions Follow up Referrals: Cardiology - Next Day with Edi Palencia MD PCP Follow-up - 2-3 Days with James Coombs MD Pulmonology - 2-3 Days with Inder Krishnan MD New Medications: Prednisone (Prednisone) 20 Mg Tab 20 MG PO DAILY then resume home prednisone copd #7 Ref 0 TAB Levofloxacin (Levaquin) 750 Mg Tab 750 MG PO Q24H Infection #7 TAB Continued Medications: Albuterol 6.7 GM Inh (Proventil Hfa 6.7 GM Inh) 90 Mcg/Act Aer 2 PUFF INH DAILY PRN SHORTNESS OF BREATH #1 Ref 0 INHALER Albuterol Neb (Albuterol Neb) 2.5 Mg/0.5 Ml Neb 2.5 MG NEB TID Note: The Albuterol Sulfate Inhalation Solution is concentrated and must be diluted. Read complete instructions carefully before using. SHORTNESS OF BREATH #90 Ref 0 NEBULE Alprazolam (Xanax) 0.25 Mg Tab 0.25 MG PO TID PRN ANXIETY Ref [address] (Aspirin 81) 81 Mg Tabdr 81 MG PO DAILY Ref 0 TAB Calcium Carbonate-Cholecalciferol (Calcium + D3) 600-200 Mg-Unit Tab 1 TAB PO BID TAB Glyburide (Glyburide) 2.5 Mg Tab 2.5 MG PO DAILY Take with meals at the same time each day Blood Sugar Management #30 Ref 0 TAB Isosorbide Mononitrate (Isosorbide Mononitrate) 20 Mg Tab 30 MG PO BID Take 2 doses 7 hours apart. Prevent Chest Pain #60 Ref 0 TAB Lisinopril (Lisinopril) 10 Mg Tab 10 MG PO DAILY #30 Ref 0 TAB Metoprolol Succinate ER 24 HR (Toprol XL) 50 Mg Tab 50 MG PO DAILY #30 Ref 0 TAB Misc Natural Products (Saw [place]) 1 Cap 500 MG PO DAILY Mometasone 30 Act Inh (Asmanex 30 Act [place]) 220 Mcg/Act Inh 2 PUFF INH DAILY Asthma Management #1 Ref 0 INHALER Multiple Vitamin (Multiple Vitamin) 1 Tab 1 TAB PO DAILY Nutritional Supplement Ref 0 TAB Omeprazole (Omeprazole) 20 Mg Tab 20 MG PO DAILY #30 Ref 0 TAB Prednisone (Prednisone) 5 Mg Tab 5 MG PO DAILY Ref 0 TAB Simvastatin (Zocor) 20 Mg Tab 20 MG PO HS Cholesterol Management #30 Ref 0 TAB Theophylline ER 12 HR (Theophylline SR) 300 Mg Tab 150 MG PO DAILY #60 Ref 0 TAB Warfarin (Coumadin) 4 Mg Tab 4 MG PO SUTUWETHSA Take 1 tablet (4mg) on Thursday,Thursday,, and Thursday Prevent Blood Clot #30 Ref 0 TAB Warfarin (Coumadin) 4 Mg Tab 2 MG PO MOFR Take 1/2 tablet (2mg) on Thursday ,Thu, Thursday Prevent Blood Clot # 30 Ref 0 TAB Rachael Casey MD May 04, 2016 13:51
--- NOTE | 2016-05-08 09:09 | RSPPFT ---
DATE OF PROCEDURE: 05/02/16 COMMENTS: VOLUMES DYNAMIC: FVC and FEV1 severely reduced. FLOWS: FEV1% mildly reduced; FEF 25-75 severely reduced. IMPRESSION: Severe obstructive ventilatory defect.
== END 2016-05-04 14:38 | disposition home or self-care (01) | DRG 191 ==
LOC: PHED 09:53 → PHEDA 11:47 → PH3A 13:11
PROVIDERS: ADMIT Hospitalist; ATTEND Hospitalist
DX: J44.1 Chronic obstructive pulmonary disease with (acute) exacerbation (principal); I25.810 Atherosclerosis of coronary artery bypass graft(s) without angina pectoris; Z99.81 Dependence on supplemental oxygen; I48.91 Unspecified atrial fibrillation; E11.9 Type 2 diabetes mellitus without complications; Z95.1 Presence of aortocoronary bypass graft; I10 Essential (primary) hypertension; R09.02 Hypoxemia; E78.5 Hyperlipidemia, unspecified; Z95.5 Presence of coronary angioplasty implant and graft; J45.909 Unspecified asthma, uncomplicated; K21.9 Gastro-esophageal reflux disease without esophagitis; N40.0 Benign prostatic hyperplasia without lower urinary tract symptoms; Z79.52 Long term (current) use of systemic steroids; Z87.891 Personal history of nicotine dependence
CPT/HCPCS: 36600; 71010; 71250; 80053; 80198; 81001; 82805; 83735; 83880; 84484; 85025; 85610; 87070; 87205; 87449; 87804; 93005; 93306; 94010; 94640; 94664; J1956; J2920; J2930; J7512; Q0163

== ENCOUNTER → 2016-08-26 | Outpatient (CLI) | payer MEDICARE, BC ==
[~2016-08-26] MED LIST changes: -AZIT250T3 PO; -IMDU30TA PO; +ISOS20TA PO; +LEVA750T PO; +PRED5TAB PO; -TIOT1AER INH
[2016-08-26 12:08] LABS: AUTOMATED NEUTROPHIL # 4.2 TH/MM3 (1.8-7.7); BASOPHIL % 0.3 % (0.0-2.0); EOSINOPHIL # 0.3 TH/MM3 (0-0.4); EOSINOPHIL % 4.1 % (0.0-4.0); HEMATOCRIT 46.4 % (39.0-51.0); HEMO FLAGS DIFF FINAL; LYMPH % 26.2 % (9.0-44.0); LYMPHOCYTE # 1.9 TH/MM3 (1.0-4.8); MEAN CELL VOLUME 92.4 FL (80.0-100.0); MEAN CORPUSCULAR HEMOGLOBIN 31.1 PG (27.0-34.0); MEAN CORPUSCULAR HGB CONC 33.7 % (32.0-36.0); MONO % 12.1 % (0.0-8.0); NEUT % 57.3 % (16.0-70.0); PLATELET COUNT 268 TH/MM3 (150-450); RED BLOOD COUNT 5.03 MIL/MM3 (4.50-5.90); RED CELL DISTRIBUTION WIDTH 14.2 % (11.6-17.2); WHITE BLOOD COUNT 7.4 TH/MM3 (4.0-11.0)
[2016-08-26 12:20] LABS: MICRO ALBUMIN RANDOM URINE RAW 6.8 MG/L (0.0-30.0)
[2016-08-26 12:23] LABS: ALKALINE PHOSPHATASE 52 U/L (45-117); ALT (GPT) 24 U/L (12-78); ANION GAP 5 MEQ/L (5-15); AST (GOT) 18 U/L (15-37); BICARBONATE 34.6 MEQ/L (21.0-32.0); BLOOD UREA NITROGEN 15 MG/DL (7-18); CHLORIDE 102 MEQ/L (98-107); GLOMERULAR FILTRATION RATE 56 ML/MIN (>89); GLUCOSE,FASTING 84 MG/DL (74-99); HDL CHOLESTEROL 59.7 MG/DL (40.0-60.0); LDL CHOLESTEROL 67 MG/DL (0-99); POTASSIUM 4.2 MEQ/L (3.5-5.1); SODIUM (NA) 142 MEQ/L (136-145); THEOPHYLLINE 2.1 MCG/ML (10.0-20.0); TOTAL BILIRUBIN ADULT 0.7 MG/DL (0.2-1.0)
[2016-08-26 16:24] LABS: HEMOGLOBIN A1a 1.1 %; HEMOGLOBIN A1b 1.3 %; HEMOGLOBIN Ao 86.3 %; HEMOGLOBIN LA1C 1.8 %; HEMOGLOBIN P3 3.4 %
== END ==
LOC: PLAB 08:28
PROVIDERS: ATTEND Family Medicine
DX: E78.2 Mixed hyperlipidemia (principal); J44.1 Chronic obstructive pulmonary disease with (acute) exacerbation; E11.9 Type 2 diabetes mellitus without complications; I48.91 Unspecified atrial fibrillation; N40.0 Benign prostatic hyperplasia without lower urinary tract symptoms; D64.9 Anemia, unspecified
CPT/HCPCS: 36415; 80053; 80061; 80198; 82043; 83036; 84153; 85025

== ENCOUNTER 2016-12-15 10:39 | Emergency (ER) | payer MEDICARE, BC ==
[~2016-12-15] VITALS: Ht 167.6 cm; Wt 62.0 kg
[2016-12-15 12:18] VITALS: BP 145/73; PULSE 73; RESP 18; TEMP 98.1; O2SAT 97
--- NOTE | 2016-12-15 15:31 | PD ---
HPI Chief Complaint: Complaint Time Seen by Provider: 15:15 Travel History International Travel<30 days: No Contact w/Intl Traveler<30days: No Traveled to known affect area: No History of Present Illness HPI The patient is a 86-year-old male who presents emergency department for dysuria. The patient has a history of prostatitis and urinary tract infections in the past which have been treated with Cipro with good results. The patient states he was admitted to the hospital in [facility], one week ago for COPD exacerbation. The patient was admitted on Thursday and subsequently discharged home on Thursday. The patient states she was taken off of saw palmetto secondary to an interaction with his lisinopril. The patient states that since they took him off of his supplemental he has had mild difficulty urinating. He denies any outright urinary retention, but does complain of dysuria, frequency, urgency, and occasional dribbling. The patient' s primary physician is Dr. Coombs. The patient denies any fever, chills, or sweats. He denies any significant abdominal pain or swelling. PFSH Past Medical History Hx Anticoagulant Therapy: Yes (coumadin) Asthma: Yes Atrial Fibrillation: Yes Blood Disorders: No Heart Rhythm Problems: Yes Cancer: No Cardiac Catheterization: Yes Cardiovascular Problems: Yes (htn on meds) High Cholesterol: Yes Chest Pain: No Congestive Heart Failure: No COPD: Yes Coronary Artery Disease: No Diabetes: Yes Diminished Hearing: Yes ([facility] has hearing aids) Endocrine: No Genitourinary: Yes Hepatitis: No Hiatal Hernia: No Hypertension: Yes Immune Disorder: No Musculoskeletal: No Neurologic: No Psychiatric: No Respiratory: Yes (copd with oxygen at home) Myocardial Infarction: No Thyroid Disease: No Past Surgical History Abdominal Surgery: Yes AICD: No Appendectomy: Yes Cardiac Surgery: No Cholecystectomy: Yes Coronary Stent: Yes (x4 stents) Ear Surgery: No Endocrine Surgery: No Eye Surgery: Yes (RIGHT DETACHED RETINA x2; BILATERAL CATARACTS) Genitourinary Surgery: No Gynecologic Surgery: No Oral Surgery: No Pacemaker: No Thoracic Surgery: No Tonsillectomy: Yes Other Surgery: Yes Social History Alcohol Use: Yes (occas. wine or beer) Tobacco Use: No (1994 smoked 1 - 1 1/2 ppd cigs) Substance Use: No Allergies-Medications (Allergen,Severity, Reaction): Coded Allergies: codeine (Unverified Allergy, Severe, "violently ill", 11/18/16) acetaminophen (Unverified Allergy, Intermediate, n/v, 11/18/16) hydrocodone (Unverified Allergy, Intermediate, n/v, 11/18/16) tramadol (Unverified Allergy, Intermediate, n/v, 11/18/16) Reported Meds & Prescriptions Reported Meds & Active Scripts Active Reported Stiolto Respimat Inh (Tiotropium-Olodaterol Inh) 2.5-2.5 Mcg/Act Aero 2 Puff INH DAILY Atorvastatin (Atorvastatin Calcium) 20 Mg Tab 20 Mg PO HS Warfarin 4 Mg Tab 4 Mg PO MOFR Warfarin 2 Mg Tab 2 Mg PO TUWEASU Prednisone 5 Mg Tab 5 Mg PO DAILY Isosorbide Mononitrate 20 Mg Tab 30 Mg PO BID Take 2 doses 7 hours apart. Xanax (Alprazolam) 0.25 Mg Tab 0.25 Mg PO TID PRN Theophylline SR (Theophylline) 300 Mg Tab 150 Mg PO DAILY Omeprazole 20 Mg Tab 20 Mg PO DAILY Multiple Vitamin 1 Tab 1 Tab PO DAILY Toprol XL (Metoprolol Succinate) 50 Mg Tab 50 Mg PO DAILY Lisinopril 10 Mg Tab 10 Mg PO DAILY Glyburide 2.5 Mg Tab 2.5 Mg PO DAILY Take with meals at the same time each day Calcium + D3 (Calcium Carbonate-Cholecalciferol) 600-200 Mg-Unit Tab 1 Tab PO BID Aspirin 81 (Aspirin) 81 Mg Tabdr 81 Mg PO DAILY Proventil Hfa 6.7 GM Inh (Albuterol Sulfate) 90 Mcg/Act Aer 2 Puff INH DAILY PRN Albuterol Neb (Albuterol Sulfate) 2.5 Mg/0.5 Ml Neb 2.5 Mg NEB TID Note: The Albuterol Sulfate Inhalation Solution is concentrated and must be diluted. Read complete instructions carefully before using. Asmanex 30 Act Twisthaler (Mometasone 30 Act Inh) 220 Mcg/Act Inh 2 Puff INH DAILY Review of Systems Except as stated in HPI: all other systems reviewed are Neg General / Constitutional: No: Fever Gastrointestinal: No: Abdominal Pain, Constipation, Changes in Bowel Habits Genitourinary: Positive: Urgency, Frequency, Dysuria, No: Decreased Urinary Output Physical Exam Narrative GENERAL: Awake, alert, very pleasant 86-year-old male who appears her stated age and is in no acute respiratory distress. SKIN: Focused skin assessment warm/dry. HEAD: Atraumatic. Normocephalic. EYES: No injection or drainage. ENT: No nasal bleeding or discharge. Mucous membranes pink and moist. NECK: Trachea midline. No JVD. GASTROINTESTINAL: Abdomen soft, non-tender, nondistended. No suprapubic tenderness. Genitourinary: Circumcised phallus. Both testicles are descended. No tenderness. Rectal: No tenderness of the prostate on rectal examination. No gross blood. MUSCULOSKELETAL: No obvious deformities. No clubbing. No cyanosis. No edema. NEUROLOGICAL: Awake and alert. No obvious cranial nerve deficits. Motor grossly within normal limits. Normal speech. PSYCHIATRIC: Appropriate mood and affect; insight and judgment normal. Data Data Last Documented VS Vital Signs Date Time Temp Pulse Resp B/P (MAP) Pulse Ox O2 Delivery O2 Flow Rate FiO2 12/15/16 17:20 92 16 150/82 (104) 95 Nasal Cannula 2.00 12/15/16 12:18 98.1 Orders Orders Urinalysis - C+S If Indicated (12/15/16 15:25) Basic Metabolic Panel (Bmp) (12/15/16 15:26) Urine Culture (12/15/16 14:30) Ciprofloxacin (Cipro) (12/15/16 17:30) Labs Laboratory Tests Test 12/15/16 14:30 12/15/16 17:20 Urine Collection Type CLEAN CATCH Urine Color YELLOW Urine Turbidity MARKED Urine pH 6.0 Urine Specific [place] 1.017 Urine Protein 30 mg/dL Urine Glucose (UA) NEG mg/dL Urine Ketones 15 mg/dL Urine Occult Blood MOD Urine Nitrite NEG Urine Bilirubin NEG Urine Leukocyte Esterase LARGE Urine RBC 15-19 /hpf Urine WBC INNUM /hpf Urine Squamous Epithelial Cells 0-5 /hpf Microscopic Urinalysis Comment CULTURE INDICATED Urine Collection Time 14:30 Blood Urea Nitrogen 19 MG/DL Creatinine 0.93 MG/DL Random Glucose 84 MG/DL Calcium Level 8.5 MG/DL Sodium Level 134 MEQ/L Potassium Level 4.6 MEQ/L Chloride Level 99 MEQ/L Carbon Dioxide Level 26.6 MEQ/L Anion Gap 8 MEQ/L Estimat Glomerular Filtration Rate 77 ML/MIN [facility] Medical Decision Making Medical Screen Exam Complete: Yes Emergency Medical Condition: Yes Medical Record Reviewed: Yes Interpretation(s) Laboratory Tests Test 12/15/16 14:30 12/15/16 17:20 Urine Collection Type CLEAN CATCH Urine Color YELLOW Urine Turbidity MARKED Urine pH 6.0 Urine Specific [place] 1.017 Urine Protein 30 mg/dL Urine Glucose (UA) NEG mg/dL Urine Ketones 15 mg/dL Urine Occult Blood MOD Urine Nitrite NEG Urine Bilirubin NEG Urine Leukocyte Esterase LARGE Urine RBC 15-19 /hpf Urine WBC INNUM /hpf Urine Squamous Epithelial Cells 0-5 /hpf Microscopic Urinalysis Comment CULTURE INDICATED Urine Collection Time 14:30 Blood Urea Nitrogen 19 MG/DL Creatinine 0.93 MG/DL Random Glucose 84 MG/DL Calcium Level 8.5 MG/DL Sodium Level 134 MEQ/L Potassium Level 4.6 MEQ/L Chloride Level 99 MEQ/L Carbon Dioxide Level 26.6 MEQ/L Anion Gap 8 MEQ/L Estimat Glomerular Filtration Rate 77 ML/MIN Differential Diagnosis Differential diagnosis includes UTI, complicated UTI, urinary retention, acute renal failure, prostatitis, orchitis, epididymitis. Narrative Course UA and BMP were sent to lab. The patient's creatinine is unremarkable. UA reveals innumerable wbc's. The patient was administered Cipro 500 mg orally. I had a discussion with the patient regarding interaction a Cipro with Coumadin , he would prefer to try Cipro 250 twice a day, he has an appointment with his doctor on . He will be provided a copy of lab results and urine results at discharge. He is advised to return sooner if symptoms worsen or progress. Diagnosis Primary Impression: UTI (urinary tract infection) Qualified Codes: N39.0 - Urinary tract infection, site not specified Patient Instructions: General Instructions Additional Instructions: Medications as directed. Follow-up with your primary physician. Return if symptoms worsen or progress. Med/Other Pt SpecificInfo: Prescription(s) given Scripts Phenazopyridine (Pyridium) 100 Mg Tab 100 MG PO Q8H Y for DYSURIA for 2 Days, TAB 0 Refills Prov: Patrick Reynaga MD 12/15/16 Ciprofloxacin (Cipro) 250 Mg Tab 250 MG PO BID for Infection for 10 Days, TAB 0 Refills Prov: Patrick Reynaga MD 12/15/16 Disposition: 01 DISCHARGE HOME Condition: Stable Patrick Reynaga MD Dec 15, 2016 15:31
[2016-12-15 15:52] LABS: BLOOD, URINE MOD (NEG); GLUCOSE,URINE NEG (NEG); KETONE, URINE 15 mg/dL (NEG); NITRITE,URINE NEG (NEG)
[2016-12-15] MEDS ORDERED: WARF-20 PO (15:54)
[2016-12-15] MEDS ORDERED: WARF4TAB51 PO (15:54)
[2016-12-15 15:57] LABS: METHOD OF COLLECTION CLEAN CATCH; URINE COLOR YELLOW (YELLW/STRAW)
[2016-12-15 15:58] LABS: COMMENT (UR) CULTURE INDICATED; CULTURE IF INDICATED CULTURE INDICATED; RBC, URINE 15-19 /hpf (0-3); SQUAMOUS EPITHELIAL CELL URINE 0-5 /hpf (0-5); WBC, URINE INNUM /hpf (0-5)
[2016-12-15] MEDS ORDERED: TIOT1AER INH (15:58)
[2016-12-15] MEDS ORDERED: ATOR20TA15 PO (15:58)
[2016-12-15 17:20] VITALS: BP 150/82; PULSE 92; RESP 16; O2SAT 95
[2016-12-15] MEDS ORDERED: CIPROFLOXACIN 500 MG TAB PO ONE (17:30)
[2016-12-15 18:05] LABS: POTASSIUM 4.6 MEQ/L (3.5-5.1)
[2016-12-15 18:08] LABS: BICARBONATE 26.6 MEQ/L (21.0-32.0)
[2016-12-15] MEDS ORDERED: PHEN0.4T PO (18:17)
[2016-12-15] MEDS ORDERED: CIPR250T52 PO (18:17)
[2016-12-15 18:54] VITALS: BP 155/104
== END 2016-12-15 19:02 | disposition home or self-care (01) ==
LOC: PHED 10:39 → PHEFT 19:02
DX: N39.0 Urinary tract infection, site not specified (principal); Z87.891 Personal history of nicotine dependence; E11.9 Type 2 diabetes mellitus without complications; H91.90 Unspecified hearing loss, unspecified ear; I10 Essential (primary) hypertension; I48.91 Unspecified atrial fibrillation; J44.1 Chronic obstructive pulmonary disease with (acute) exacerbation; Z95.5 Presence of coronary angioplasty implant and graft; Z99.81 Dependence on supplemental oxygen; R82.90 Unspecified abnormal findings in urine
CPT/HCPCS: 80048; 81001; 87077; 87086; 87186; 99284

== ENCOUNTER → 2017-07-15 | Outpatient (CLI) | payer MEDICARE, BC ==
[~2017-07-15] MED LIST changes: -ASPI-110 PO; +ASPI1TAB57 PO; +ATOR20TA15 PO; +CIPR250T52 PO; -COUM4TAB PO; -LEVA750T PO; -MISC1CAP2 PO; -OMEP20TA PO; +OMEP20TA93 PO; +PHEN0.4T PO; -PRED20 PO; +THEO300T13 PO; -THEO300T24 PO; +TIOT1AER INH; +WARF-20 PO; +WARF4TAB51 PO; -ZOCO20TA PO
== END ==
LOC: PLAB 10:12
PROVIDERS: ATTEND Internal Medicine
DX: J44.9 Chronic obstructive pulmonary disease, unspecified (principal)
CPT/HCPCS: 36415; 80198

== ENCOUNTER 2017-08-12 11:21 | Emergency (ER) | payer MEDICARE, BC | END 2017-08-12 12:00 | disposition home or self-care (01) | LOC: PHEFT 11:21 | DX: S51.012A Laceration without foreign body of left elbow, initial encounter (principal); I48.91 Unspecified atrial fibrillation; I10 Essential (primary) hypertension; J44.9 Chronic obstructive pulmonary disease, unspecified; E11.9 Type 2 diabetes mellitus without complications; E78.00 Pure hypercholesterolemia, unspecified; W01.190A Fall on same level from slipping, tripping and stumbling with subsequent striking against furniture, initial encounter; Z79.01 Long term (current) use of anticoagulants; Z79.51 Long term (current) use of inhaled steroids | CPT/HCPCS: 99282 ==

== ENCOUNTER 2017-10-13 11:24 | Inpatient (IN) ==
[2017-10-13] MEDS ORDERED: MethylPREDNISolone Sod Succinate Inj 125 MG/2 ML Vial IV.PUSH ONE (11:48)
--- NOTE | 2017-10-13 11:59 | ED ---
HPI General Chief Complaint: Shortness of Breath/Dyspnea Stated Complaint: Respiratory Time Seen by Provider: 10/13/17 11:36 Source: patient, family, RN notes reviewed and old records reviewed Limitations: no limitations History of Present Illness 87-year-old male presents to the emergency department for evaluation of shortness of breath that started 2 weeks ago. He saw his primary care physician was put on prednisone on and finished his last dose yesterday. He states that shortness of breath is worsening. He does report history of COPD. He is using his albuterol nebulizers at home, but states they are making him worse. Patient denies any chest pain. No fevers or chills. He reports a mild cough. No abdominal pain. No nausea, vomiting, diarrhea. He denies any leg swelling. He does report history of stent 4, hypertension, hyperlipidemia, COPD, possible history of atrial fibrillation according to the patient. He is on Coumadin. Patient states that he is on 2 L O2 nasal cannula at night, uses it as needed during the day 2-4 L. He states for the past 2 weeks he has been on his oxygen continuously. He states that exertion will exacerbate his symptoms even with minimal exertion. No alleviating factors. Moderate severity. He denies any leg edema. No hemoptysis. No history DVT or PE. No recent surgery or travel. He states he was recently diagnosed with UTI , according to chart he was on Macrobid. He denies being on any other antibiotics. Patient's primary care physician is Dr. Coombs. He reports his shipping supervisor, Dr. Krishnan, referred him to come to the emergency department MD Complaint: shortness of breath Onset (ago): week(s) (2) Severity: moderate Consistency/Duration: constant and progressively worsening Relieving factors: nothing Exacerbating factors: exertion Known history of: COPD Associated symptoms: denies other symptoms Treatment prior to arrival: oxygen and other (prednisone) Related Data Home oxygen amount: 2 liters Home Medications Medication Instructions Recorded Confirmed albuterol sulfate 2.5 mg INHALATION Q8HR 10/13/17 10/13/17 albuterol sulfate [Proventil HFA] 1 puff INHALATION Q4-6H PRN 10/13/17 10/13/17 alprazolam [Xanax] 0.5 mg PO DAILY 10/13/17 10/13/17 aspirin [Aspirin Low Dose] 81 mg PO DAILY 10/13/17 10/13/17 atorvastatin [Lipitor] 80 mg PO HS 10/13/17 10/13/17 calcium carbonate-vitamin D3 1 tab PO BID 10/13/17 10/13/17 [Calcium 500 + D] dextromethorphan-guaifenesin 1 tab PO DAILY 10/13/17 10/13/17 [Mucinex DM] glipizide 2.5 mg PO DAILY 10/13/17 10/13/17 isosorbide mononitrate 30 mg PO QAM 10/13/17 10/13/17 lisinopril 10 mg PO BID 10/13/17 10/13/17 metoprolol succinate [Toprol XL] 50 mg PO Q12HR 10/13/17 10/13/17 mometasone [Asmanex HFA] 2 puff INHALATION DAILY 10/13/17 10/13/17 multivitamin 1 tab PO DAILY 10/13/17 10/13/17 omeprazole 20 mg PO DAILY 10/13/17 10/13/17 prednisone 5 mg PO DAILY 10/13/17 10/13/17 theophylline 100 mg PO DAILY 10/13/17 10/13/17 tiotropium-olodaterol [Stiolto 2 puff INHALATION BID 10/13/17 10/13/17 Respimat] warfarin [Coumadin] 2 mg PO SUTUWETHSA 10/13/17 10/13/17 warfarin [Coumadin] 3 mg PO MOFR 10/13/17 10/13/17 Allergies Allergy/AdvReac Type Severity Reaction Status Date / Time acetaminophen Allergy Intermediate Nausea/Vomi Verified 10/13/17 11:54 ting hydrocodone Allergy Intermediate Nausea/Vomi Verified 10/13/17 11:54 ting codeine AdvReac Severe NAUSEAS Verified 10/13/17 11:54 tramadol AdvReac Intermediate Nausea/Vomi Verified 10/13/17 11:54 ting Review of Systems ROS Unobtainable All other systems reviewed negative except as stated in HPI [facility] Medical History Medical History COPD (chronic obstructive pulmonary disease) (Acute) Diabetes (Acute) HBP (high blood pressure) (Acute) High cholesterol (Acute) Surgical History Surgical History History of cholecystectomy (Acute) History of eye surgery (Acute) History of knee surgery (Acute) Hx of heart artery stent (Acute) Social History Social History Substance History: No History of Abuse Second Hand Smoke Exposure: No Smoking Status: Former smoker How Often Do You Have a Drink Containing Alcohol: 2 to 4 times a month Recent Travel in [facility] within the Last 8 Weeks: No Recent Out of Country Travel within the Last 8 Weeks: No Immunization History Tetanus Immunization: >5 Years Hx Influenza Vaccine This Season: Yes Exam Narrative Exam Narrative: GENERAL: Well-nourished, well-developed elderly male patient, dyspneic with exertion, appears SOB on exam SKIN: Focused skin assessment warm/dry. No lacerations or abrasions HEAD: Normocephalic. Atraumatic. EYES: No scleral icterus. No injection or drainage. NECK: Supple, trachea midline. No JVD or lymphadenopathy. CARDIOVASCULAR: Regular rate and rhythm without murmurs, gallops, or rubs. Bilateral radial and pedal pulses 2+ RESPIRATORY: Breath sounds equal bilaterally. Patient is tachypneic on exam. Lung sounds are diminished, tight, with expiratory wheezes noted throughout GASTROINTESTINAL: Abdomen soft, non-tender, nondistended. MUSCULOSKELETAL: No cyanosis, or edema. BACK: No obvious deformity. Course Initial Documented Vital Signs Temperature 98.6 F 10/13/17 11:27 Pulse Rate 81 10/13/17 11:27 Respiratory Rate 24 10/13/17 11:27 Blood Pressure 194/114 H 10/13/17 11:27 Pulse Oximetry 96 10/13/17 11:27 Last Documented Vital Signs Temperature 97.9 F 10/13/17 13:00 Pulse Rate 63 10/13/17 13:37 Respiratory Rate 15 10/13/17 13:37 Blood Pressure 178/86 H 10/13/17 13:00 Pulse Oximetry 99 10/13/17 13:00 Medical Decision Making MDM Narrative Medical decision making narrative: 87-year-old male presents to the emergency department for evaluation of shortness of breath that has been increasing over the past 2 weeks. He just finished a course of prednisone yesterday. He reports significant shortness of breath upon exertion. EKG shows sinus rhythm, heart rate 73, no acute ST changes. IV access obtained. CBC, BMP, magnesium, BNP, CK, troponin, lactic acid, PTT, PT/INR, chest x-ray ordered and pending. Patient is given Solu-Medrol 125 mg IV, duoneb 3. CBC shows leukocytosis of 12.9. CMP shows hyperglycemia of 185. Magnesium is 2.3. CK is 47. Troponin is less than 0.02. Lactic acid is 2.3 BNP is 307. PTT is 30.1. PT/INR is 20.8/2.1. Chest x-ray shows no acute cardiopulmonary disease. Blood cultures x2 are ordered. Patient is given Azithromycin 500 mg IV. Residents accepted admission. Patient will be admitted for COPD exacerbation. Differential Diagnosis Differential Diagnosis: COPD exacerbation versus pneumonia versus URI versus ACS Medical Records Medical records reviewed: Yes I reviewed the patient's medical records. Lab Data Result diagrams: 10/13/17 12:00 10/13/17 12:00 Lab Results 10/13/17 10/13/17 10/13/17 Range/Units 12:00 12:00 12:00 WBC 12.9 H (4.0-11.0) th/mm3 RBC 4.87 (4.50-5.90) mil/mm3 Hgb 15.4 (13.0-17.0) gm/dL Hct 45.6 (39.0-51.0) % MCV 93.7 (80.0-100.0) fL MCH 31.7 (27.0-34.0) pg MCHC 33.9 (32.0-36.0) % RDW 14.2 (11.6-17.2) % Plt Count 309 (150-450) th/mm3 MPV 8.4 (7.0-11.0) fL Neut % (Auto) 85.6 H (16.0-70.0) % Lymph % (Auto) 7.1 L (9.0-44.0) % [place] % (Auto) 7.2 (0.0-8.0) % Eos % (Auto) 0.0 (0.0-4.0) % Baso % (Auto) 0.1 (0.0-2.0) % Neut # (Auto) 11.0 H (1.8-7.7) th/mm3 Lymph # (Auto) 0.9 L (1.0-4.8) th/mm3 [place] # (Auto) 0.9 (0.0-0.9) th/mm3 Eos # (Auto) 0.0 (0.0-0.4) th/mm3 Baso # (Auto) 0.0 (0.0-0.2) th/mm3 WBC Differential . Differential Comment Auto diff final PT 20.8 H (9.8-11.6) sec INR 2.1 Ratio APTT 30.1 (24.3-30.1) sec Sodium 136 (136-145) meq/L Potassium 4.3 (3.5-5.1) meq/L Chloride 100 (98-107) meq/L Carbon Dioxide 29.4 (21.0-32.0) meq/L Anion Gap 7 (5-15) meq/L BUN 19 H (7-18) mg/dL Creatinine 0.95 (0.60-1.30) mg/dL Estimated GFR 75 L (>89) mL/min Random Glucose 185 H (74-106) mg/dL Lactic Acid (0.4-2.0) mmol/L Calcium 8.7 (8.5-10.1) mg/dL Magnesium 2.3 (1.5-2.5) mg/dL Total Bilirubin 0.6 (0.2-1.0) mg/dL AST 12 L (15-37) U/L ALT 25 (12-78) U/L Alkaline Phosphatase 68 (45-117) U/L Total Creatine Kinase 47 (39-308) U/L Troponin I Less than 0.02 L (0.02-0.05) ng/mL B-Natriuretic Peptide (0-100) pg/mL Total Protein 7.4 (6.4-8.2) g/dL Albumin 4.0 (3.4-5.0) g/dL Urine Color (Yellw/Straw) Urine Clarity (Clear) Urine pH (5.0-8.5) Ur Specific [place] (1.002-1.035) Urine Protein (Neg-Trace) mg/dL Urine Glucose (UA) (Negative) mg/dL Urine Ketones (Negative) mg/dL Urine Occult Blood (Negative) Urine Nitrate (Negative) Urine Bilirubin (Negative) Urine Urobilinogen (Less than 2) mg/dL Ur Leukocyte Esterase (Negative) Urine RBC (0-3) /hpf Urine WBC (0-5) /hpf Urine Mucus (Occasional) /lpf Micro UA Comment Urine Culture Comments 10/13/17 10/13/17 10/13/17 Range/Units 12:00 12:00 13:00 WBC (4.0-11.0) th/mm3 RBC (4.50-5.90) mil/mm3 Hgb (13.0-17.0) gm/dL Hct (39.0-51.0) % MCV (80.0-100.0) fL MCH (27.0-34.0) pg MCHC (32.0-36.0) % RDW (11.6-17.2) % Plt Count (150-450) th/mm3 MPV (7.0-11.0) fL Neut % (Auto) (16.0-70.0) % Lymph % (Auto) (9.0-44.0) % [place] % (Auto) (0.0-8.0) % Eos % (Auto) (0.0-4.0) % Baso % (Auto) (0.0-2.0) % Neut # (Auto) (1.8-7.7) th/mm3 Lymph # (Auto) (1.0-4.8) th/mm3 [place] # (Auto) (0.0-0.9) th/mm3 Eos # (Auto) (0.0-0.4) th/mm3 Baso # (Auto) (0.0-0.2) th/mm3 WBC Differential Differential Comment PT (9.8-11.6) sec INR Ratio APTT (24.3-30.1) sec Sodium (136-145) meq/L Potassium (3.5-5.1) meq/L Chloride (98-107) meq/L Carbon Dioxide (21.0-32.0) meq/L Anion Gap (5-15) meq/L BUN (7-18) mg/dL Creatinine (0.60-1.30) mg/dL Estimated GFR (>89) mL/min Random Glucose (74-106) mg/dL Lactic Acid 2.3 H (0.4-2.0) mmol/L Calcium (8.5-10.1) mg/dL Magnesium (1.5-2.5) mg/dL Total Bilirubin (0.2-1.0) mg/dL AST (15-37) U/L ALT (12-78) U/L Alkaline Phosphatase (45-117) U/L Total Creatine Kinase (39-308) U/L Troponin I (0.02-0.05) ng/mL B-Natriuretic Peptide 307 H (0-100) pg/mL Total Protein (6.4-8.2) g/dL Albumin (3.4-5.0) g/dL Urine Color Yellow (Yellw/Straw) Urine Clarity Clear (Clear) Urine pH 6.0 (5.0-8.5) Ur Specific [place] 1.018 (1.002-1.035) Urine Protein Negative (Neg-Trace) mg/dL Urine Glucose (UA) 500 or greater (Negative) mg/dL Urine Ketones Negative (Negative) mg/dL Urine Occult Blood Negative (Negative) Urine Nitrate Negative (Negative) Urine Bilirubin Negative (Negative) Urine Urobilinogen Less than 2 (Less than 2) mg/dL Ur Leukocyte Esterase Negative (Negative) Urine RBC Less than 1 (0-3) /hpf Urine WBC Less than 1 (0-5) /hpf Urine Mucus Few H (Occasional) /lpf Micro UA Comment Culture not ind Urine Culture Comments Culture not ind Imaging Data Radiologist's impression: ITS Impressions Chest X-Ray 10/13/17 11:48 CONCLUSION: No acute cardiopulmonary disease. Discharge Plan Discharge Disposition Patient Disposition: 30 Still Patient Discharge Details Diagnosis: Acute exacerbation of chronic obstructive airways disease Physicians Team ED Provider: Rahul Castañeda ED Midlevel Provider: Christina Mendes Rxs /Orders / Referrals /Forms Prescriptions: No Action multivitamin Tablet 1 tab PO DAILY RF: 0 atorvastatin [Lipitor] 80 mg Tablet 80 mg PO HS RF: 0 albuterol sulfate 2.5 mg /3 mL (0.083 %) Solution For Nebulization 2.5 mg INHALATION Q8HR RF: 0 lisinopril 20 mg Tablet 10 mg PO BID RF: 0 isosorbide mononitrate 30 mg Tablet Extended Release 24 Hr 30 mg PO QAM RF: 0 metoprolol succinate [Toprol XL] 100 mg Tablet Extended Release 24 Hr 50 mg PO Q12HR RF: 0 prednisone 5 mg Tablet 5 mg PO DAILY RF: 0 theophylline 100 mg Capsule,Extended Release 24hr 100 mg PO DAILY RF: 0 aspirin [Aspirin Low Dose] 81 mg Tablet,Delayed Release (Dr/Ec) 81 mg PO DAILY RF: 0 alprazolam [Xanax] 0.5 mg Tablet 0.5 mg PO DAILY RF: 0 warfarin [Coumadin] 2 mg Tablet 3 mg PO MOFR RF: 0 warfarin [Coumadin] 2 mg Tablet 2 mg PO SUTUWETHSA RF: 0 dextromethorphan-guaifenesin [Mucinex DM] 30-600 mg Tablet Extended Release 12 Hr 1 tab PO DAILY RF: 0 albuterol sulfate [Proventil HFA] 90 mcg/actuation Hfa Aerosol Inhaler 1 puff INHALATION Q4-6H PRN (Reason: Shortness Of Breath) RF: 0 calcium carbonate-vitamin D3 [Calcium 500 + D] 500 mg(1,250mg) -200 unit Tablet 1 tab PO BID RF: 0 omeprazole 20 mg Tablet,Delayed Release (Dr/Ec) 20 mg PO DAILY RF: 0 mometasone [Asmanex HFA] 100 mcg/actuation Hfa Aerosol Inhaler 2 puff INHALATION DAILY RF: 0 tiotropium-olodaterol [Stiolto Respimat] 2.5-2.5 mcg/actuation Mist 2 puff INHALATION BID RF: 0 glipizide 2.5 mg Tablet Extended Release 24hr 2.5 mg PO DAILY RF: 0 Status ED Status: With Doctor
[2017-10-13 12:29] LABS: Baso % (Auto) 0.1 % (0.0-2.0); Hematocrit 45.6 % (39.0-51.0); Hemoglobin 15.4 gm/dL (13.0-17.0); Lymph # (Auto) 0.9 th/mm3 (1.0-4.8); Lymph % (Auto) 7.1 % (9.0-44.0); Mean Corpuscular HGB Conc 33.9 % (32.0-36.0); Mean Corpuscular Hemoglobin 31.7 pg (27.0-34.0); Mean Corpuscular Volume 93.7 fL (80.0-100.0); Mean Platelet Volume 8.4 fL (7.0-11.0); Mono # (Auto) 0.9 th/mm3 (0.0-0.9); Mono % (Auto) 7.2 % (0.0-8.0); Neut % (Auto) 85.6 % (16.0-70.0); Platelet Count 309 th/mm3 (150-450); Red Blood Count 4.87 mil/mm3 (4.50-5.90); Red Cell Distribution Width 14.2 % (11.6-17.2); White Blood Count 12.9 th/mm3 (4.0-11.0)
[2017-10-13 12:35] LABS: Activated Partial Thrombo Time 30.1 sec (24.3-30.1); INR 2.1 Ratio; Prothrombin Time 20.8 sec (9.8-11.6)
[2017-10-13 12:50] LABS: Alanine Aminotransferase 25 U/L (12-78); Anion Gap 7 meq/L (5-15); Aspartate Aminotransferase 12 U/L (15-37); Blood Urea Nitrogen 19 mg/dL (7-18); Calcium 8.7 mg/dL (8.5-10.1); Carbon Dioxide 29.4 meq/L (21.0-32.0); Chloride 100 meq/L (98-107); Glomerular Filtration Rate 75 mL/min (>89); Glucose,Random 185 mg/dL (74-106); Magnesium 2.3 mg/dL (1.5-2.5); Potassium 4.3 meq/L (3.5-5.1); Sodium 136 meq/L (136-145)
[2017-10-13 12:53] LABS: Alkaline Phosphatase 68 U/L (45-117); Total Protein 7.4 g/dL (6.4-8.2)
[2017-10-13 12:56] LABS: Creatine Kinase 47 U/L (39-308)
--- NOTE | 2017-10-13 12:59 | XR ---
EXAM DATE: 10/13/2017 12:56 PM EDT AGE/SEX: 87 years / Male INDICATIONS: Short of breath for several days. CLINICAL DATA: This is the patient's initial encounter. Patient reports that signs and symptoms have been present for 2 days and indicates a pain score of 0/10. MEDICAL/SURGICAL HISTORY: Chronic obstructive pulmonary disease. Coronary artery stent. COMPARISON: [facility], CHEST SINGLE AP, 05/01/2016. . FINDINGS: A single AP view of the chest demonstrates the lungs to be symmetrically aerated without evidence of mass, infiltrate or effusion. The cardiomediastinal contours are unremarkable. Osseous structures a re intact. CONCLUSION: No acute cardiopulmonary disease. Electronically signed by: Andrei Mcgill MD 10/13/2017 12:57 PM EDT
[2017-10-13] MEDS ORDERED: Azithromycin Inj 500 MG in Sodium Chlor 0.9% Inj 250 ML IV.SIG ONE (13:13)
[2017-10-13 13:14] LABS: Bilirubin,Urine Negative (Negative); Clarity,Urine Clear (Clear); Color,Urine Yellow (Yellw/Straw); Glucose,Urine (UA) 500 or Greater mg/dL (Negative); Leukocyte Esterase,Urine Negative (Negative); Mucus,Urine Few /lpf (Occasional); Nitrite,Urine Negative (Negative); Specific Gravity,Urine 1.018 (1.002-1.035)
--- NOTE | 2017-10-13 14:18 | P.HPFP ---
History of Present Illness Primary Care Physician: James Matson <Korina Joe - 10/14/17 12:23> James Matson <Melly Griffiths - 10/13/17 14:18> Chief Complaint: shortness of breath <Melly Griffiths - 10/13/17 19:42> History of Present Illness: 87 year old male with history of COPD, atrial fibrillation, DM, HTN and CAD with stent placement presents to the ED with worsening shortness of breath and dyspnea with minimal exertion for the past 10 days. Patient states that he is now unable to walk short distances without getting short of breath. He normally only uses oxygen at night and during the day, rarely, as needed, but recently has started to require O2 up to 4L frequently throughout the day. During the interview he was unable to finish sentences without needed sounding out of breath. He admits to increased cough, without sputum. However, he states that has chest congestion and feels like his chest is full of mucus, but remains he is unable to cough anything up at this time. He also notes that his voice sounds hoarse to him. Denies recent fever, chills, chest pain, abdominal pain, leg pain, lightheadedness or fall. His current pulmonary regimen includes Stiolto 2 pufs BID, Asmanex 2 puffs daily , Albuterol nebulizer treatments TID, Prednisone 5 mg daily, Theophylline 100 mg daily, proventil as needed and O2 2L at night. Sees striper machine Dr. Krishnan, who placed him on a five day regimen of Prednisone 10mg PO BID for increased shortness of breath, about 5 days ago. He has been hospitalized in the past, multiple times for similar symptoms. Denies prior intubation. Patient also notes recent UTI a couple of weeks ago, first treated with Cipro, then 1 week later with Macrobid. No urinary complaints currently. <Melly Griffiths - 10/14/17 00:08> - Diagnosis (1) Acute exacerbation of chronic obstructive airways disease (2) Difficulty swallowing (3) Diabetes mellitus (4) Atrial fibrillation (5) HTN (hypertension) (6) Hyperlipemia (7) Hx of coronary artery disease (8) Sleep disturbance (9) Nutrition, metabolism, and development symptoms (10) DVT prophylaxis <Korina Joe - 10/14/17 12:23> (1) Acute exacerbation of chronic obstructive airways disease (2) Diabetes mellitus (3) Atrial fibrillation (4) HTN (hypertension) (5) Hyperlipemia (6) Hx of coronary artery disease (7) Sleep disturbance (8) Nutrition, metabolism, and development symptoms (9) DVT prophylaxis <PatriciarhondaMelly 10/14/17 00:32> Inpatient Certification: I certify that the inpatient services were ordered in accordance with Medicare regulations governing the order. This includes certification that hospital inpatient services are reasonable and necessary and in the case of services not specified as inpatient-only under 42 CFR 419.22(n), that they are appropriately provided as inpatient services in accordance to with the 2-midnight benchmark under 43 CFR 412.3(e) <Korina Joe 10/14/17 12:23> I certify that the inpatient services were ordered in accordance with Medicare regulations governing the order. This includes certification that hospital inpatient services are reasonable and necessary and in the case of services not specified as inpatient-only under 42 CFR 419.22(n), that they are appropriately provided as inpatient services in accordance to with the 2-midnight benchmark under 43 CFR 412.3(e) <PatriciarhondaMelly B 10/13/17 14:18> Review of Systems Constitutional: Denies chills, Denies fever(s), Denies headache(s) <Patriciarhonda Melly B 10/14/17 00:08> Eyes: Denies blurry vision, Denies dry eyes <PatriciarhondaMelly B 10/14/17 00:08> Ears, Nose, Mouth, and Throat: Reports nasal discharge (clear, mild), Denies abnormal hearing, Denies difficulty swallowing, Denies nosebleed, Denies sinus pain <TundeMelly Audelia 10/14/17 00:08> Cardiovascular: Denies chest pain, Denies lightheadedness <PatriciarhondaMelly B 10/14/17 00:08> Respiratory: Reports chest congestion, Reports cough, Reports shortness of breath (at rest), Reports shortness of breath with activity, Denies excessive phlegm production <TundeMelly B 10/14/17 00:08> Gastrointestinal: Denies abdominal pain, Denies black, tarry stools, Denies loose stools, Denies nausea, Denies vomiting <Melly Griffiths - 10/14/17 00:08 > Genitourinary: Denies blood in urine, Denies difficulty urinating, Denies painful urination <Melly Griffiths 10/14/17 00:08> Musculoskeletal: Denies numbness, Denies tingling <Melly Griffiths 10/14/17 00:08> Neurologic: Denies dizziness, Denies fainting, Denies frequent falls <Melly Griffiths 10/14/17 00:08> [facility] - History History Provided By: Patient <Melly Griffiths 10/13/17 14:18> - Medical History Medical History: Medical History (Last Reviewed 10/13/17 @ 11:56 by BEBETO Celeste) COPD (chronic obstructive pulmonary disease) Diabetes HBP (high blood pressure) High cholesterol <Korina Joe - 10/14/17 12:23> Medical History (Last Reviewed 10/13/17 @ 11:56 by BEBETO Celeste) COPD (chronic obstructive pulmonary disease) Diabetes HBP (high blood pressure) High cholesterol <Melly Griffiths 10/13/17 14:18> - Surgical History Surgical History: Surgical History (Last Updated 10/13/17 @ 11:49 by Riddhi Schmidt) History of cholecystectomy History of eye surgery History of knee surgery Hx of heart artery stent <Korina Joe - 10/14/17 12:23> Surgical History (Last Updated 10/13/17 @ 11:49 by Riddhi Schmidt) History of cholecystectomy History of eye surgery History of knee surgery Hx of heart artery stent <Melly Griffiths 10/13/17 14:18> - Tobacco History Second Hand Smoke Exposure: No <Melly Griffiths 10/13/17 14:18> Tobacco Use In Past 30 Days: No <Melly Griffiths 10/13/17 14:18> Smoking Status: Former smoker <Melly Griffiths 10/13/17 14:18> - Alcohol History How Often Do You Have a Drink Containing Alcohol: 2 to 4 times a month <Melly Griffiths 10/13/17 14:18> - Substance Use History Substance History: No History of Abuse <Laura Griffithsvictor m Win - 10/13/17 14:18> - Travel History Recent Travel in the [place] Within the Last 8 Weeks: No <Melly Griffiths - 14:18> Recent Travel Out of the Country Within the Last 8 Weeks: No <TundeMelly B - 10/13/17 14:18> - Immunization History Tetanus Immunization: >5 Years <Melly Griffiths - 10/13/17 14:18> Hx Influenza Vaccine This Season: Yes <Melly Griffiths - 10/13/17 14:18> Medications and Allergies Allergies Allergy/AdvReac Type Severity Reaction Status Date / Time acetaminophen Allergy Intermediate Nausea/Vomi Verified 10/13/17 11:54 ting hydrocodone Allergy Intermediate Nausea/Vomi Verified 10/13/17 11:54 ting codeine AdvReac Severe NAUSEAS Verified 10/13/17 11:54 tramadol AdvReac Intermediate Nausea/Vomi Verified 10/13/17 11:54 ting <Korina Joe - 10/14/17 12:23> Home Medications Medication Instructions Recorded Confirmed Type albuterol sulfate 2.5 mg INHALATION Q8HR 10/13/17 10/13/17 History albuterol sulfate [Proventil HFA] 1 puff INHALATION Q4-6H PRN 10/13/17 10/13/17 History alprazolam [Xanax] 0.5 mg PO DAILY 10/13/17 10/13/17 History aspirin [Aspirin Low Dose] 81 mg PO DAILY 10/13/17 10/13/17 History atorvastatin [Lipitor] 80 mg PO HS 10/13/17 10/13/17 History calcium carbonate-vitamin D3 1 tab PO BID 10/13/17 10/13/17 History [Calcium 500 + D] dextromethorphan-guaifenesin 1 tab PO DAILY 10/13/17 10/13/17 History [Mucinex DM] glipizide 2.5 mg PO DAILY 10/13/17 10/13/17 History isosorbide mononitrate 30 mg PO QAM 10/13/17 10/13/17 History lisinopril 10 mg PO BID 10/13/17 10/13/17 History metoprolol succinate [Toprol XL] 50 mg PO Q12HR 10/13/17 10/13/17 History mometasone [Asmanex HFA] 2 puff INHALATION DAILY 10/13/17 10/13/17 History multivitamin 1 tab PO DAILY 10/13/17 10/13/17 History omeprazole 20 mg PO DAILY 10/13/17 10/13/17 History prednisone 5 mg PO DAILY 10/13/17 10/13/17 History theophylline 100 mg PO DAILY 10/13/17 10/13/17 History tiotropium-olodaterol [Stiolto 2 puff INHALATION BID 10/13/17 10/13/17 History Respimat] warfarin [Coumadin] 2 mg PO SUTUWETHSA 10/13/17 10/13/17 History warfarin [Coumadin] 3 mg PO MOFR 10/13/17 10/13/17 History <Korina Joe - 10/14/17 12:23> Active Medications: Active Medications Al Hydroxide/Mg Hydroxide (Milk Of Magnshruthi Liq) 30 ml PO Q12H PRN PRN Reason: Mild Constipation Albuterol (Albuterol Neb (Prn)) 2.5 mg NEB Q2HR NEB PRN PRN Reason: SHORTNESS OF BREATH Albuterol (Duoneb Neb ([facility])) 1 ampul NEB Q4HR NEB [facility] Last Admin: 10/14/17 11:08 Dose: 1 ampul Alprazolam (Xanax) 0.5 mg PO [facility] Last Admin: 10/13/17 22:12 Dose: 0.5 mg Aspirin (Ecotrin) 81 mg PO DAILY [facility] Last Admin: 10/14/17 08:26 Dose: 81 mg Atorvastatin Calcium (Lipitor) 20 mg PO [facility] Last Admin: 10/13/17 20:08 Dose: 20 mg Azithromycin (Zithromax) 500 mg PO DAILY [facility] Stop: 10/16/17 09:01 Last Admin: 10/14/17 08:26 Dose: 500 mg Benzonatate (Tessalon Perles) 200 mg PO Q8H PRN PRN Reason: COUGH Bisacodyl (Dulcolax Supp) 10 mg RECTAL DAILY PRN PRN Reason: SEVERE CONSITIPATION Calcium/Vitamin D (Oscal With D 250/125 Mg) 2 tab PO BID [facility] Last Admin: 10/14/17 08:26 Dose: 2 tab Clonidine HCl (Catapres) 0.1 mg PO Q6H PRN PRN Reason: BP>180/110 Last Admin: 10/13/17 18:41 Dose: 0.1 mg Dextrose (D50w Vial) 50 ml IV.PUSH UNSCH PRN PRN Reason: PER HYPOGLYCEMIA PROTOCOL Glucagon (Glucagon Inj) 1 mg OTHER PRN PRN PRN Reason: for Hypoglycemia Protocol Guaifenesin (Mucinex Er) 600 mg PO BID [facility] Last Admin: 10/14/17 08:27 Dose: 600 mg Sodium Chloride (Ns Inj) 1,000 mls @ 80 mls/hr IV.CONT .[id number] [facility] Last Admin: 10/14/17 04:51 Dose: 80 mls/hr Piperacillin/Tazobactam/Dextrose (Zosyn 4.5 Gm Premix) 4.5 gm in 100 mls @ 200 mls/hr IV.SIG Q6H [facility] Last Admin: 10/14/17 12:00 Dose: 200 mls/hr Insulin Aspart (Novolog Insulin Suppl Scale Inj) 0 unit SQ ACHS [facility]; Protocol Last Admin: 10/14/17 07:56 Dose: Not Given Isosorbide Mononitrate (Imdur) 30 mg PO DAILY@0700 [facility] Last Admin: 10/14/17 06:15 Dose: 30 mg Lisinopril (Prinivil) 10 mg PO BID [facility] Last Admin: 10/14/17 08:26 Dose: 10 mg Methylprednisolone Sodium Succinate (Solumedrol Inj) 40 mg IV.PUSH Q12HR [facility] Last Admin: 10/14/17 06:13 Dose: 40 mg Metoprolol Succinate (Toprol Xl) 50 mg PO Q12HR [facility] Last Admin: 10/14/17 08:25 Dose: 50 mg Multivitamins (Theragran) 1 tab PO DAILY [facility] Last Admin: 10/14/17 08:26 Dose: 1 tab Ondansetron HCl (Zofran Odt) 4 mg SL Q6H PRN PRN Reason: NAUSEA OR VOMITING Pantoprazole Sodium (Protonix) 20 mg PO DAILY [facility] Last Admin: 10/14/17 08:25 Dose: 20 mg Ptownmed(Mometasone [Asmanex Hfa] 2 Puff ) 0 each INH DAILY [facility] ( Tiotropium- Olodaterol [Stiolto Respimat] 2 Puff) 0 each INH BID [facility] Last Admin: 10/13/17 22:16 Dose: Not Given Senna/Docusate Sodium (Haydee-Colace) 1 tab PO BID PRN PRN Reason: CONSTIPATION Sennosides (Senokot) 17.2 mg PO Q12H PRN PRN Reason: Moderate Constipation Sodium Chloride (Ns Flush) 2 ml IV.FLUSH BID [facility] Last Admin: 10/14/17 08:28 Dose: 2 ml Sodium Chloride (Ns Flush) 2 ml IV.FLUSH PRN PRN PRN Reason: FLUSH AFTER USING IV ACCESS Last Admin: 10/14/17 06:14 Dose: 2 ml Theophylline (Oscar-24) 100 mg PO DAILY [facility] Last Admin: 10/14/17 10:04 Dose: Not Given Warfarin Sodium (Coumadin) 3 mg PO DAILY@1600 [facility] Last Admin: 10/13/17 18:41 Dose: 3 mg <Korina Joe - 10/14/17 12:23> Active Medications Azithromycin 500 mg/ Sodium (Chloride) 250 mls @ 250 mls/hr IV.SIG ONCE ONE Stop: 10/13/17 14:12 Last Admin: 10/13/17 13:23 Dose: 250 mls/hr <Melly Griffiths - 10/13/17 14:18> Exam Vital signs: Vital Signs 10/13/17 12:31 10/13/17 13:00 10/13/17 13:37 Temperature 97.9 F 97.9 F Pulse Rate 65 82 63 Respiratory Rate 20 21 15 Blood Pressure 188/91 H 178/86 H Pulse Oximetry 99 99 10/13/17 14:50 10/13/17 16:19 10/13/17 17:10 Temperature 97.9 F Pulse Rate 86 75 86 Respiratory Rate 19 19 20 Blood Pressure 173/79 H 168/84 H 143/78 H Pulse Oximetry 100 100 10/13/17 17:18 10/13/17 19:45 10/13/17 20:00 Temperature 97.3 F L 98.2 F Pulse Rate 81 99 H 95 H Respiratory Rate 20 20 Blood Pressure 197/104 H 139/101 H Pulse Oximetry 98 10/13/17 20:53 10/13/17 23:45 10/14/17 00:00 Temperature 98 F Pulse Rate 86 92 H 80 Respiratory Rate 18 18 Blood Pressure 147/76 H Pulse Oximetry 98 96 10/14/17 04:00 10/14/17 04:15 10/14/17 08:00 Temperature 97.4 F L 98.4 F Pulse Rate 54 L 60 64 Respiratory Rate 18 20 Blood Pressure 161/82 H 200/97 H Pulse Oximetry 98 100 Intake & Output 10/13/17 10/14/17 10/14/17 18:59 06:59 18:59 Intake Total 1773 / 1773 Balance 1773 / 1773 Weight 1 g Intake: IV 1300 / 1300 NS Inj 1,000 ML @ 80 mls/hr IV. 1000 / 1000 CONT .[id number] [facility] Rx#:[id number] Zosyn 4.5 GM Premix 4.5 gm In 300 / 300 100 ml @ 200 mls/hr IV.SIG Q6H [facility] Rx#:[id number] Oral 473 / 473 Other: Weight On Admission 1 g <Korina Joe - 10/14/17 12:23> Vital Signs 10/13/17 11:27 10/13/17 11:31 10/13/17 11:45 Temperature 98.6 F 97.9 F Pulse Rate 81 71 72 Respiratory Rate 24 24 Blood Pressure 194/114 H 196/97 H Pulse Oximetry 96 99 99 10/13/17 12:31 10/13/17 13:00 10/13/17 13:37 Temperature 97.9 F 97.9 F Pulse Rate 65 82 63 Respiratory Rate 20 21 15 Blood Pressure 188/91 H 178/86 H Pulse Oximetry 99 99 Intake & Output 10/12/17 10/13/17 10/13/17 18:59 06:59 18:59 Weight 64.41 kg <Melly Griffiths - 10/13/17 14:18> Narrative: patient sitting up in bed, mildly tachypneic, while on 2L NC, breathes in between short phrases <Melly Griffiths - 10/14/17 00:08> - Constitutional mild distress, cooperative <Melly Griffiths 10/14/17 00:08> - Routine HEENT Exam Head: Present: normocephalic, atraumatic <Melly Griffiths 10/14/17 00:08> Eye: Present: EOMI. Absent: scleral injection <[facility] 10/14/17 00: 08> ENT: Present: mucous membranes moist, oropharynx clear <[facility] 02/21 00:08> Comments: no white plaques <[facility] 10/14/17 00:08> - Routine Neck Exam Present: trachea midline. Absent: lymphadenopathy, tenderness, swelling <[facility] 10/14/17 00:08> - Routine Respiratory Exam Present: prolonged expiratory phase, wheezes (expiratory), diminished air movement. Absent: accessory muscle use <[facility] 10/14/17 00:08> - Routine Cardiovascular Exam Present: irregularly irregular <[facility] 10/14/17 00:08> - Routine Abdominal Exam Present: soft, normoactive bowel sounds. Absent: tenderness, mass <[facility] 10/14/17 00:08> - Routine Extremities Exam Present: pulses intact, normal capillary refill. Absent: cyanosis, edema, calf tenderness <[facility] 10/14/17 00:08> - Routine Skin Exam Present: dry, warm <[facility] 10/14/17 00:08> - Routine Neurological Exam Present: alert, oriented X3, moving all extremities <[facility] 00:08> Results - Labs Result diagrams: 10/14/17 06:15 10/14/17 06:15 <Korina Joe - 10/14/17 12:23> Abnormal lab results 10/13/17 10/13/17 10/13/17 Range/Units 12:00 12:00 12:00 WBC 12.9 H (4.0-11.0) th/mm3 RBC (4.50-5.90) mil/mm3 Neut % (Auto) 85.6 H (16.0-70.0) % Lymph % (Auto) 7.1 L (9.0-44.0) % [place] % (Auto) (0.0-8.0) % Neut # (Auto) 11.0 H (1.8-7.7) th/mm3 Lymph # (Auto) 0.9 L (1.0-4.8) th/mm3 [place] # (Auto) (0.0-0.9) th/mm3 PT 20.8 H (9.8-11.6) sec VBG pCO2 (44-48) mmHG VBG HCO3 (22-26) mmol/L VBG O2 Saturation (70-76) % VBG Base Excess (-2-2) mmol/L BUN 19 H (7-18) mg/dL Estimated GFR 75 L (>89) mL/min POC Glucose (68-110) mg/dl Random Glucose 185 H (74-106) mg/dL Lactic Acid (0.4-2.0) mmol/L AST 12 L (15-37) U/L Troponin I Less than 0.02 L (0.02-0.05) ng/mL B-Natriuretic Peptide (0-100) pg/mL Urine Mucus (Occasional) /lpf 10/13/17 10/13/17 10/13/17 Range/Units 12:00 12:00 13:00 WBC (4.0-11.0) th/mm3 RBC (4.50-5.90) mil/mm3 Neut % (Auto) (16.0-70.0) % Lymph % (Auto) (9.0-44.0) % [place] % (Auto) (0.0-8.0) % Neut # (Auto) (1.8-7.7) th/mm3 Lymph # (Auto) (1.0-4.8) th/mm3 [place] # (Auto) (0.0-0.9) th/mm3 PT (9.8-11.6) sec VBG pCO2 (44-48) mmHG VBG HCO3 (22-26) mmol/L VBG O2 Saturation (70-76) % VBG Base Excess (-2-2) mmol/L BUN (7-18) mg/dL Estimated GFR (>89) mL/min POC Glucose (68-110) mg/dl Random Glucose (74-106) mg/dL Lactic Acid 2.3 H (0.4-2.0) mmol/L AST (15-37) U/L Troponin I (0.02-0.05) ng/mL B-Natriuretic Peptide 307 H (0-100) pg/mL Urine Mucus Few H (Occasional) /lpf 10/13/17 10/13/17 10/13/17 Range/Units 14:41 16:14 19:50 WBC (4.0-11.0) th/mm3 RBC (4.50-5.90) mil/mm3 Neut % (Auto) (16.0-70.0) % Lymph % (Auto) (9.0-44.0) % [place] % (Auto) (0.0-8.0) % Neut # (Auto) (1.8-7.7) th/mm3 Lymph # (Auto) (1.0-4.8) th/mm3 [place] # (Auto) (0.0-0.9) th/mm3 PT (9.8-11.6) sec VBG pCO2 58 H* (44-48) mmHG VBG HCO3 32 H (22-26) mmol/L VBG O2 Saturation 63 L (70-76) % VBG Base Excess 6.7 H (-2-2) mmol/L BUN (7-18) mg/dL Estimated GFR (>89) mL/min POC Glucose (68-110) mg/dl Random Glucose (74-106) mg/dL Lactic Acid 2.3 H (0.4-2.0) mmol/L AST (15-37) U/L Troponin I Less than 0.02 L (0.02-0.05) ng/mL B-Natriuretic Peptide (0-100) pg/mL Urine Mucus (Occasional) /lpf 10/13/17 10/14/17 10/14/17 Range/Units 21:19 06:15 06:15 WBC (4.0-11.0) th/mm3 RBC 4.42 L (4.50-5.90) mil/mm3 Neut % (Auto) 81.0 H (16.0-70.0) % Lymph % (Auto) 8.8 L (9.0-44.0) % [place] % (Auto) 10.2 H (0.0-8.0) % Neut # (Auto) 8.9 H (1.8-7.7) th/mm3 Lymph # (Auto) (1.0-4.8) th/mm3 [place] # (Auto) 1.1 H (0.0-0.9) th/mm3 PT (9.8-11.6) sec VBG pCO2 (44-48) mmHG VBG HCO3 (22-26) mmol/L VBG O2 Saturation (70-76) % VBG Base Excess (-2-2) mmol/L BUN 19 H (7-18) mg/dL Estimated GFR 86 L (>89) mL/min POC Glucose 394 H (68-110) mg/dl Random Glucose 144 H (74-106) mg/dL Lactic Acid (0.4-2.0) mmol/L AST (15-37) U/L Troponin I (0.02-0.05) ng/mL B-Natriuretic Peptide (0-100) pg/mL Urine Mucus (Occasional) /lpf 10/14/17 10/14/17 Range/Units 07:43 12:14 WBC (4.0-11.0) th/mm3 RBC (4.50-5.90) mil/mm3 Neut % (Auto) (16.0-70.0) % Lymph % (Auto) (9.0-44.0) % [place] % (Auto) (0.0-8.0) % Neut # (Auto) (1.8-7.7) th/mm3 Lymph # (Auto) (1.0-4.8) th/mm3 [place] # (Auto) (0.0-0.9) th/mm3 PT (9.8-11.6) sec VBG pCO2 (44-48) mmHG VBG HCO3 (22-26) mmol/L VBG O2 Saturation (70-76) % VBG Base Excess (-2-2) mmol/L BUN (7-18) mg/dL Estimated GFR (>89) mL/min POC Glucose 144 H 253 H (68-110) mg/dl Random Glucose (74-106) mg/dL Lactic Acid (0.4-2.0) mmol/L AST (15-37) U/L Troponin I (0.02-0.05) ng/mL B-Natriuretic Peptide (0-100) pg/mL Urine Mucus (Occasional) /lpf Short CBC 10/13/17 10/14/17 Range/Units 12:00 06:15 WBC 12.9 H 11.0 (4.0-11.0) th/mm3 Hgb 15.4 14.2 (13.0-17.0) gm/dL Hct 45.6 41.3 (39.0-51.0) % Plt Count 309 268 (150-450) th/mm3 BMP 10/13/17 10/14/17 12:00 06:15 Sodium 136 142 Potassium 4.3 4.1 Chloride 100 105 Carbon Dioxide 29.4 31.0 BUN 19 H 19 H Creatinine 0.95 0.84 Calcium 8.7 8.7 Cardiac Enzymes 10/13/17 10/13/17 Range/Units 12:00 19:50 Total Creatine Kinase 47 (39-308) U/L Troponin I Less than 0.02 L Less than 0.02 L (0.02-0.05) ng/mL Liver Function 10/13/17 Range/Units 12:00 Total Bilirubin 0.6 (0.2-1.0) mg/dL AST 12 L (15-37) U/L ALT 25 (12-78) U/L Alkaline Phosphatase 68 (45-117) U/L Albumin 4.0 (3.4-5.0) g/dL Urine 10/13/17 Range/Units 13:00 Urine Color Yellow (Yellw/Straw) Urine Clarity Clear (Clear) Urine pH 6.0 (5.0-8.5) Ur Specific [place] 1.018 (1.002-1.035) Urine Protein Negative (Neg-Trace) mg/dL Urine Glucose (UA) 500 or greater (Negative) mg/dL <Korina Joe - 10/14/17 12:23> Abnormal lab results 10/13/17 10/13/17 10/13/17 Range/Units 12:00 12:00 12:00 WBC 12.9 H (4.0-11.0) th/mm3 Neut % (Auto) 85.6 H (16.0-70.0) % Lymph % (Auto) 7.1 L (9.0-44.0) % Neut # (Auto) 11.0 H (1.8-7.7) th/mm3 Lymph # (Auto) 0.9 L (1.0-4.8) th/mm3 PT 20.8 H (9.8-11.6) sec BUN 19 H (7-18) mg/dL Estimated GFR 75 L (>89) mL/min Random Glucose 185 H (74-106) mg/dL Lactic Acid (0.4-2.0) mmol/L AST 12 L (15-37) U/L Troponin I Less than 0.02 L (0.02-0.05) ng/mL B-Natriuretic Peptide (0-100) pg/mL Urine Mucus (Occasional) /lpf 10/13/17 10/13/17 10/13/17 Range/Units 12:00 12:00 13:00 WBC (4.0-11.0) th/mm3 Neut % (Auto) (16.0-70.0) % Lymph % (Auto) (9.0-44.0) % Neut # (Auto) (1.8-7.7) th/mm3 Lymph # (Auto) (1.0-4.8) th/mm3 PT (9.8-11.6) sec BUN (7-18) mg/dL Estimated GFR (>89) mL/min Random Glucose (74-106) mg/dL Lactic Acid 2.3 H (0.4-2.0) mmol/L AST (15-37) U/L Troponin I (0.02-0.05) ng/mL B-Natriuretic Peptide 307 H (0-100) pg/mL Urine Mucus Few H (Occasional) /lpf Short CBC 10/13/17 Range/Units 12:00 WBC 12.9 H (4.0-11.0) th/mm3 Hgb 15.4 (13.0-17.0) gm/dL Hct 45.6 (39.0-51.0) % Plt Count 309 (150-450) th/mm3 BMP 10/13/17 12:00 Sodium 136 Potassium 4.3 Chloride 100 Carbon Dioxide 29.4 BUN 19 H Creatinine 0.95 Calcium 8.7 Cardiac Enzymes 10/13/17 Range/Units 12:00 Total Creatine Kinase 47 (39-308) U/L Troponin I Less than 0.02 L (0.02-0.05) ng/mL Liver Function 10/13/17 Range/Units 12:00 Total Bilirubin 0.6 (0.2-1.0) mg/dL AST 12 L (15-37) U/L ALT 25 (12-78) U/L Alkaline Phosphatase 68 (45-117) U/L Albumin 4.0 (3.4-5.0) g/dL Urine 10/13/17 Range/Units 13:00 Urine Color Yellow (Yellw/Straw) Urine Clarity Clear (Clear) Urine pH 6.0 (5.0-8.5) Ur Specific [place] 1.018 (1.002-1.035) Urine Protein Negative (Neg-Trace) mg/dL Urine Glucose (UA) 500 or greater (Negative) mg/dL <Melly Griffiths - 10/13/17 14:18> - Imaging Impressions Chest X-Ray 10/13/17 11:48 CONCLUSION: No acute cardiopulmonary disease. <Korina Joe - 10/14/17 12:23> Impressions Chest X-Ray 10/13/17 11:48 CONCLUSION: No acute cardiopulmonary disease. <Melly Griffiths 10/13/17 14:18> Caprini VTE Risk Assessment Caprini VTE Risk Assessment: Moderate/High Risk (score >= 2) <Melly Griffiths 10/14/17 00:08> Capnieves Risk Assessment Model: Point Value = 1 Point Value = 2 Point Value = 3 Point Value = 5 Age 41-60 Minor surgery BMI > 25 kg/m2 Swollen legs Varicose veins or History of unexplained or recurrent spontaneous Oral contraceptives or hormone replacement Sepsis (< 1 month) Serious lung disease, including pneumonia (< 1 month) Abnormal pulmonary function Acute myocardial infarction Congestive heart failure (< 1 month) History of inflammatory bowel disease Medical patient at bed rest Age 61-74 Arthroscopic surgery Major open surgery (> 45 min) Laparoscopic surgery (> 45 min) Malignancy Confined to bed (> 72 hours) Immobilizing plaster cast Central venous access Age >= 75 History of VTE Family history of VTE Factor V Leiden Prothrombin [id number] Lupus anticoagulant Anticardiolipin antibodies Elevated serum homocysteine Heparin-induced thrombocytopenia Other congenital or acquired thrombophilia Stroke (< 1 month) Elective arthroplasty Hip, pelvis, or leg fracture Acute spinal cord injury (< 1 month) <Korina Joe 10/14/17 12:23> Point Value = 1 Point Value = 2 Point Value = 3 Point Value = 5 Age 41-60 Minor surgery BMI > 25 kg/m2 Swollen legs Varicose veins or History of unexplained or recurrent spontaneous Oral contraceptives or hormone replacement Sepsis (< 1 month) Serious lung disease, including pneumonia (< 1 month) Abnormal pulmonary function Acute myocardial infarction Congestive heart failure (< 1 month) History of inflammatory bowel disease Medical patient at bed rest Age 61-74 Arthroscopic surgery Major open surgery (> 45 min) Laparoscopic surgery (> 45 min) Malignancy Confined to bed (> 72 hours) Immobilizing plaster cast Central venous access Age >= 75 History of VTE Family history of VTE Factor V Leiden Prothrombin [id number] Lupus anticoagulant Anticardiolipin antibodies Elevated serum homocysteine Heparin-induced thrombocytopenia Other congenital or acquired thrombophilia Stroke (< 1 month) Elective arthroplasty Hip, pelvis, or leg fracture Acute spinal cord injury (< 1 month) <Melly Griffiths - 10/13/17 14:18> Prophylaxis Regimen: Total Risk Factor Score Risk Level Prophylaxis Regimen 0-1 Low Early ambulation 2 Moderate Order ONE of the following: *Sequential Compression Device (SCD) *Heparin 5000 units SQ BID 3-4 Higher Order ONE of the following medications: *Heparin 5000 units SQ TID *Enoxaparin/Lovenox 40 mg SQ daily (WT < 150 kg, CrCl > 30 mL/min) *Enoxaparin/Lovenox 30 mg SQ daily (WT < 150 kg, CrCl > 10-29 mL/min) *Enoxaparin/Lovenox 30 mg SQ BID (WT < 150 kg, CrCl > 30 mL/min) AND/OR *Sequential Compression Device (SCD) 5 or more Highest Order ONE of the following medications: *Heparin 5000 units SQ TID (Preferred with Epidurals) *Enoxaparin/Lovenox 40 mg SQ daily (WT < 150 kg, CrCl > 30 mL/min) *Enoxaparin/Lovenox 30 mg SQ daily (WT < 150 kg, CrCl > 10-29 mL/min) *Enoxaparin/Lovenox 30 mg SQ BID (WT < 150 kg, CrCl > 30 mL/min) AND *Sequential Compression Device (SCD) <Korina Joe - 10/14/17 12:23> Total Risk Factor Score Risk Level Prophylaxis Regimen 0-1 Low Early ambulation 2 Moderate Order ONE of the following: *Sequential Compression Device (SCD) *Heparin 5000 units SQ BID 3-4 Higher Order ONE of the following medications: *Heparin 5000 units SQ TID *Enoxaparin/Lovenox 40 mg SQ daily (WT < 150 kg, CrCl > 30 mL/min) *Enoxaparin/Lovenox 30 mg SQ daily (WT < 150 kg, CrCl > 10-29 mL/min) *Enoxaparin/Lovenox 30 mg SQ BID (WT < 150 kg, CrCl > 30 mL/min) AND/OR *Sequential Compression Device (SCD) 5 or more Highest Order ONE of the following medications: *Heparin 5000 units SQ TID (Preferred with Epidurals) *Enoxaparin/Lovenox 40 mg SQ daily (WT < 150 kg, CrCl > 30 mL/min) *Enoxaparin/Lovenox 30 mg SQ daily (WT < 150 kg, CrCl > 10-29 mL/min) *Enoxaparin/Lovenox 30 mg SQ BID (WT < 150 kg, CrCl > 30 mL/min) AND *Sequential Compression Device (SCD) <Melly Griffiths - 10/13/17 14:18> Assessment and Plan - Assessment (1) Acute exacerbation of chronic obstructive airways disease Code(s): J44.1 - Chronic obstructive pulmonary disease with (acute) exacerbation Status: Acute (2) Difficulty swallowing Code(s): R13.10 - Dysphagia, unspecified Status: Acute (3) Diabetes mellitus Code(s): E11.9 - Type 2 diabetes mellitus without complications (4) Atrial fibrillation Code(s): I48.91 - Unspecified atrial fibrillation Status: Chronic (5) HTN (hypertension) Code(s): I10 - Essential (primary) hypertension Status: Chronic (6) Hyperlipemia Code(s): E78.5 - Hyperlipidemia, unspecified Status: Acute (7) Hx of coronary artery disease Code(s): Z86.79 - Personal history of other diseases of the circulatory system Status: Acute (8) Sleep disturbance Code(s): G47.9 - Sleep disorder, unspecified Status: Acute (9) Nutrition, metabolism, and development symptoms Code(s): R63.8 - Other symptoms and signs concerning food and fluid intake Status: Acute (10) DVT prophylaxis Status: Acute <Korina Joe - 10/14/17 12:23> (1) Acute exacerbation of chronic obstructive airways disease Code(s): J44.1 - Chronic obstructive pulmonary disease with (acute) exacerbation Status: Acute Plan: Patient met severe sepsis criteria on admission due to tachypnea of 24, WBC count of 12.9 and LA of 2.3. WBC count may be falsely elevated due to recent steroid use and lactic acid may be falsely elevated due to patient's increased work of breath for the past couple of days. Patient admits to increased dyspnea with mild exertion and cough with chest congestion. CXR was consistent with COPD history, no obvious consolidation suggestive of pneumonia. Patient has a cardiac history of CAD with stent placement, but denies chest pain. labs: -BC x2 ordered in ED -VBG ordered -Troponin I negative in ED, will order serial troponin to trend medications: -Albuterol nebulizer treatment 1 amp q4h and 2.5 mg q2hr PRN -Solumedrol 40 mg IV q12h -Guaifenesin 600 mg PO BID -Azithromycin 500 mg PO daily for coverage of atypicals -Zosyn 4.5 g IV q6 for broad coverage antibiotic therapy, due to patients increased risk for pseudomonal infection -Continue home Theopylline 100 mg PO daily -Tessalon Perles 200 mg PO q8h PRN for cough ordered: -Respiratory acapella q4h ordered -Incentive spirometry ordered (2) Diabetes mellitus Code(s): E11.9 - Type 2 diabetes mellitus without complications Plan: Patient with hx of DM. BGL likely elevated due to recently increased dose of steroids for COPD exacerbation. BGL 185 on admission. -Insulin Sliding Scale ordered (3) Atrial fibrillation Code(s): I48.91 - Unspecified atrial fibrillation Status: Chronic Plan: Patient with hx of atrial fibrillation. Rate well controlled, on Metoprolol. On Warfarin for anticoagulation, therapeutic at 2.1. INR 2 Irregularly irregular rhythm on EKG. -Will continue home medications: Metoprolol 50 mg PO q12h and Warfarin 3mg PO daily (4) HTN (hypertension) Code(s): I10 - Essential (primary) hypertension Status: Chronic Plan: Patient has a hx of HTN -Will continue home medications: Lisinopril 10 mg PO BID and Metoprolol 50 mg PO q12h -Ordered clonidine 0.1 mg PO q6h PRN (5) Hyperlipemia Code(s): E78.5 - Hyperlipidemia, unspecified Status: Acute Plan: Patient has hx of HDL -Will continue home medication: Atorvastatin 20 mg PO HS (6) Hx of coronary artery disease Code(s): Z86.79 - Personal history of other diseases of the circulatory system Status: Acute Plan: Patient has hx of CAD with stent placement x4 -Troponin I negative in ED, will continue to monitor (7) Sleep disturbance Code(s): G47.9 - Sleep disorder, unspecified Status: Acute Plan: Patient states that he normally takes Alprazolam 0.5 mg at home before bedtime for sleep. -Ordered Alprazolam 0.5 mg PO HS (8) Nutrition, metabolism, and development symptoms Code(s): R63.8 - Other symptoms and signs concerning food and fluid intake Status: Acute Plan: Fluids: none Electrolytes: No current abnormalities, will continue to monitor and replete as necessary Nutrition: Diabetic diet (9) DVT prophylaxis Status: Acute Plan: DVT prophylaxis: Continue Warfarin 3mg PO daily. Bilateral SCDs. <Melly Griffiths - 10/14/17 00:32> - Assessment and Plan 87 year old male with hx of COPD, DM, atrial fibrillation and HTN, presented to the ED for shortness of breath consistent with COPD exacerbation <Melly Griffiths - 10/14/17 00:08> - Attending Attestation Patient seen and examined on 10/13/2017, discussed with resident team. I agree with assessment and management as documented and discussed with me. I certify that the inpatient services were ordered in accordance with Medicare regulations governing the order. This includes certification that hospital inpatient services are reasonable and necessary and in the case of services not specified as inpatient-only under 42 CFR 419.22(n), that they are appropriately provided as inpatient services in accordance to with the 2-midnight benchmark under 43 CFR 412.3(e) Melquiades Cordero is an 87yo gentleman with oxygen-dependent COPD admitted for COPD exacerbation. At the time of my admission interview/exam, he is on 3lpm. He reports that he has minimal exercise tolerance at baseline and has used a motorized wheelchair to get around for the last 6 weeks or so. Patient requires metoprolol for a fib and CAD; consider more cardioselective medication in the future, as pt has 3-4 exacerbations per year. <Korina Joe - 10/14/17 12:23> <TatyanaKorina - Last Filed: 10/14/17 12:23> (2) Difficulty swallowing Qualifiers: Dysphagia type: unspecified Qualified Code(s): R13.10 - Dysphagia, unspecified (3) Diabetes mellitus Qualifiers: Diabetes mellitus type: type 2 Diabetes mellitus predatory animal exterminator insulin use: without predatory animal exterminator use Diabetes mellitus complication status: with unspecified complications Qualified Code(s): E11.8 - Type 2 diabetes mellitus with unspecified complications <TatyanaKorina - Last Filed: 10/14/17 12:23> (2) Difficulty swallowing Qualifiers: Dysphagia type: unspecified Qualified Code(s): R13.10 - Dysphagia, unspecified (3) Diabetes mellitus Qualifiers: Diabetes mellitus type: type 2 Diabetes mellitus detention insulin use: without detention use Diabetes mellitus complication status: with unspecified complications Qualified Code(s): E11.8 - Type 2 diabetes mellitus with unspecified complications
[2017-10-13] MEDS ORDERED: Bisacodyl 10 MG Supp RECTAL PRN (14:44)
[2017-10-13] MEDS ORDERED: Senna/Docusate Sodium 8.6/50 MG Tablet PO PRN (14:44)
[2017-10-13] MEDS ORDERED: Benzonatate 100 MG Capsule PO PRN (15:18)
[2017-10-13] MEDS: Sod Chloride 0.9% Inj 1,000 ML IV.CONT SCH (16:15)
[2017-10-13 16:19] LABS: VBG Base Excess 6.7 mmol/L (-2-2); VBG Blood Gas Oxygen Content 13.3 Vol % (9.0-17.0); VBG PCO2 58 mmHG (44-48); VBG PH 7.36 (7.360-7.400); VBG PO2 36 mmHG (35-40)
--- NOTE | 2017-10-13 17:42 | ECG ---
Date Performed: 10/13/2017 Time Performed: 11:50:00 PTAGE: 87 years EKG: Sinus rhythm WITH SINUS ARRHYTHMIA NORMAL ECG Compared to prior electrocardiogram, PACs are no longer present. PREVIOUS TRACING : 05/01/2016 10.31 DOCTOR: Cole Singh Interpretating Date/Time 10/13/2017 17:41:17
[2017-10-13] MEDS: Piperacil/Tazo 4.5 GM Premix 4.5 GM/100 ML BAG IV.SIG SCH ×2 (18:40→23:32)
[2017-10-13] MEDS ORDERED: Dextrose 50% in Water 50 ML Vial IV.PUSH PRN (19:25)
[2017-10-13] MEDS: guaiFENesin 600 MG ER Tablet PO SCH (20:08)
[2017-10-13] MEDS ORDERED: [UNRECOGNIZED DRUG - OTHER] INH SCH (21:00)
[2017-10-13] MEDS ORDERED: TIOTROPIUM OLODATEROL INH SCH (21:00)
[2017-10-13] MEDS: Lisinopril 10 MG Tablet PO SCH (21:13)
[2017-10-13] MEDS: ALPRAZolam 0.5 MG Tablet PO SCH (22:12)
[2017-10-13] MEDS: Calcium/Vitamin D 250/125 MG Tablet PO SCH (22:12)
[2017-10-13] MEDS: Insulin NovoLOG Aspart Correctional Sugar Inj SQ SCH (22:13)
[2017-10-14] MEDS: Sod Chloride 0.9% Inj 1,000 ML IV.CONT SCH (04:51)
[2017-10-14] MEDS: MethylPREDNISolone Sod Succinate Inj 40 MG/ML Vial IV.PUSH SCH ×2 (06:13→20:30)
[2017-10-14] MEDS: Piperacil/Tazo 4.5 GM Premix 4.5 GM/100 ML BAG IV.SIG SCH ×2 (06:14→12:00)
[2017-10-14] MEDS: Isosorbide Mononitrate 30 MG ER 24HR Tablet (Imdur) PO SCH (06:15)
[2017-10-14 06:31] LABS: Hematocrit 41.3 % (39.0-51.0); Hemoglobin 14.2 gm/dL (13.0-17.0); Lymph % (Auto) 8.8 % (9.0-44.0); Mean Corpuscular HGB Conc 34.4 % (32.0-36.0); Mean Corpuscular Hemoglobin 32.2 pg (27.0-34.0); Mean Corpuscular Volume 93.4 fL (80.0-100.0); Mean Platelet Volume 8.4 fL (7.0-11.0); Mono # (Auto) 1.1 th/mm3 (0.0-0.9); Mono % (Auto) 10.2 % (0.0-8.0); Neut # (Auto) 8.9 th/mm3 (1.8-7.7); Platelet Count 268 th/mm3 (150-450); Red Blood Count 4.42 mil/mm3 (4.50-5.90)
[2017-10-14 07:03] LABS: Calcium 8.7 mg/dL (8.5-10.1); Potassium 4.1 meq/L (3.5-5.1)
[2017-10-14] MEDS: Insulin NovoLOG Aspart Correctional Sugar Inj SQ SCH ×4 (07:56→20:33)
[2017-10-14] MEDS: Pantoprazole Sodium 20 MG DR Tablet PO SCH (08:25)
[2017-10-14] MEDS: Azithromycin 250 MG Tablet PO SCH (08:26)
[2017-10-14] MEDS: Lisinopril 10 MG Tablet PO SCH ×2 (08:26→20:28)
[2017-10-14] MEDS: Calcium/Vitamin D 250/125 MG Tablet PO SCH ×2 (08:26→20:29)
[2017-10-14] MEDS: guaiFENesin 600 MG ER Tablet PO SCH ×2 (08:27→20:28)
[2017-10-14] MEDS ORDERED: ALPRAZolam 0.5 MG Tablet PO SCH (09:00)
[2017-10-14] MEDS ORDERED: MOMETASONE INH SCH (09:00)
[2017-10-14] MEDS ORDERED: [UNRECOGNIZED DRUG - OTHER] INH SCH (09:00)
[2017-10-14] MEDS: Theophylline ER 24 HR 100 MG Capsule PO SCH (10:04)
--- NOTE | 2017-10-14 11:04 | P.PNFP ---
Subjective Interval history: Patient seen and examined by medical team this morning. No acute events overnight per report. While patient states that he is only "improved a little bit," he has been weaned to 2 L oxygen nasal cannula. He continues to have a cough with less production. We discussed his swallowing and he reports that he has had issues with swallowing for "quite some time." Otherwise he has no complaints and denies any fevers, chills, chest pain, NVD, abdominal pain, or calf tenderness at this time. <James Armstrong H - 10/14/17 17:16> Results - Labs Result diagrams: 10/14/17 06:15 10/14/17 06:15 <Korina Joe - 10/14/17 20:05> Abnormal lab results 10/13/17 10/13/17 10/14/17 Range/Units 19:50 21:19 06:15 RBC 4.42 L (4.50-5.90) mil/mm3 Neut % (Auto) 81.0 H (16.0-70.0) % Lymph % (Auto) 8.8 L (9.0-44.0) % Bonner % (Auto) 10.2 H (0.0-8.0) % Neut # (Auto) 8.9 H (1.8-7.7) th/mm3 Bonner # (Auto) 1.1 H (0.0-0.9) th/mm3 BUN (7-18) mg/dL Estimated GFR (>89) mL/min POC Glucose 394 H (68-110) mg/dl Random Glucose (74-106) mg/dL Troponin I Less than 0.02 L (0.02-0.05) ng/mL 10/14/17 10/14/17 10/14/17 Range/Units 06:15 07:43 12:14 RBC (4.50-5.90) mil/mm3 Neut % (Auto) (16.0-70.0) % Lymph % (Auto) (9.0-44.0) % Bonner % (Auto) (0.0-8.0) % Neut # (Auto) (1.8-7.7) th/mm3 Bonner # (Auto) (0.0-0.9) th/mm3 BUN 19 H (7-18) mg/dL Estimated GFR 86 L (>89) mL/min POC Glucose 144 H 253 H (68-110) mg/dl Random Glucose 144 H (74-106) mg/dL Troponin I (0.02-0.05) ng/mL 10/14/17 10/14/17 Range/Units 17:15 19:51 RBC (4.50-5.90) mil/mm3 Neut % (Auto) (16.0-70.0) % Lymph % (Auto) (9.0-44.0) % Bonner % (Auto) (0.0-8.0) % Neut # (Auto) (1.8-7.7) th/mm3 Bonner # (Auto) (0.0-0.9) th/mm3 BUN (7-18) mg/dL Estimated GFR (>89) mL/min POC Glucose 248 H 168 H (68-110) mg/dl Random Glucose (74-106) mg/dL Troponin I (0.02-0.05) ng/mL Short CBC 10/14/17 Range/Units 06:15 WBC 11.0 (4.0-11.0) th/mm3 Hgb 14.2 (13.0-17.0) gm/dL Hct 41.3 (39.0-51.0) % Plt Count 268 (150-450) th/mm3 BMP 10/14/17 06:15 Sodium 142 Potassium 4.1 Chloride 105 Carbon Dioxide 31.0 BUN 19 H Creatinine 0.84 Calcium 8.7 Cardiac Enzymes 10/13/17 Range/Units 19:50 Troponin I Less than 0.02 L (0.02-0.05) ng/mL <Korina Joe - 10/14/17 20:05> Abnormal lab results 10/13/17 10/13/17 10/13/17 Range/Units 12:00 12:00 12:00 WBC 12.9 H (4.0-11.0) th/mm3 RBC (4.50-5.90) mil/mm3 Neut % (Auto) 85.6 H (16.0-70.0) % Lymph % (Auto) 7.1 L (9.0-44.0) % Bonner % (Auto) (0.0-8.0) % Neut # (Auto) 11.0 H (1.8-7.7) th/mm3 Lymph # (Auto) 0.9 L (1.0-4.8) th/mm3 Bonner # (Auto) (0.0-0.9) th/mm3 PT 20.8 H (9.8-11.6) sec VBG pCO2 (44-48) mmHG VBG HCO3 (22-26) mmol/L VBG O2 Saturation (70-76) % VBG Base Excess (-2-2) mmol/L BUN 19 H (7-18) mg/dL Estimated GFR 75 L (>89) mL/min POC Glucose (68-110) mg/dl Random Glucose 185 H (74-106) mg/dL Lactic Acid (0.4-2.0) mmol/L AST 12 L (15-37) U/L Troponin I Less than 0.02 L (0.02-0.05) ng/mL B-Natriuretic Peptide (0-100) pg/mL Urine Mucus (Occasional) /lpf 10/13/17 10/13/17 10/13/17 Range/Units 12:00 12:00 13:00 WBC (4.0-11.0) th/mm3 RBC (4.50-5.90) mil/mm3 Neut % (Auto) (16.0-70.0) % Lymph % (Auto) (9.0-44.0) % Bonner % (Auto) (0.0-8.0) % Neut # (Auto) (1.8-7.7) th/mm3 Lymph # (Auto) (1.0-4.8) th/mm3 Bonner # (Auto) (0.0-0.9) th/mm3 PT (9.8-11.6) sec VBG pCO2 (44-48) mmHG VBG HCO3 (22-26) mmol/L VBG O2 Saturation (70-76) % VBG Base Excess (-2-2) mmol/L BUN (7-18) mg/dL Estimated GFR (>89) mL/min POC Glucose (68-110) mg/dl Random Glucose (74-106) mg/dL Lactic Acid 2.3 H (0.4-2.0) mmol/L AST (15-37) U/L Troponin I (0.02-0.05) ng/mL B-Natriuretic Peptide 307 H (0-100) pg/mL Urine Mucus Few H (Occasional) /lpf 10/13/17 10/13/17 10/13/17 Range/Units 14:41 16:14 19:50 WBC (4.0-11.0) th/mm3 RBC (4.50-5.90) mil/mm3 Neut % (Auto) (16.0-70.0) % Lymph % (Auto) (9.0-44.0) % Bonner % (Auto) (0.0-8.0) % Neut # (Auto) (1.8-7.7) th/mm3 Lymph # (Auto) (1.0-4.8) th/mm3 Bonner # (Auto) (0.0-0.9) th/mm3 PT (9.8-11.6) sec VBG pCO2 58 H* (44-48) mmHG VBG HCO3 32 H (22-26) mmol/L VBG O2 Saturation 63 L (70-76) % VBG Base Excess 6.7 H (-2-2) mmol/L BUN (7-18) mg/dL Estimated GFR (>89) mL/min POC Glucose (68-110) mg/dl Random Glucose (74-106) mg/dL Lactic Acid 2.3 H (0.4-2.0) mmol/L AST (15-37) U/L Troponin I Less than 0.02 L (0.02-0.05) ng/mL B-Natriuretic Peptide (0-100) pg/mL Urine Mucus (Occasional) /lpf 10/13/17 10/14/17 10/14/17 Range/Units 21:19 06:15 06:15 WBC (4.0-11.0) th/mm3 RBC 4.42 L (4.50-5.90) mil/mm3 Neut % (Auto) 81.0 H (16.0-70.0) % Lymph % (Auto) 8.8 L (9.0-44.0) % Bonner % (Auto) 10.2 H (0.0-8.0) % Neut # (Auto) 8.9 H (1.8-7.7) th/mm3 Lymph # (Auto) (1.0-4.8) th/mm3 Bonner # (Auto) 1.1 H (0.0-0.9) th/mm3 PT (9.8-11.6) sec VBG pCO2 (44-48) mmHG VBG HCO3 (22-26) mmol/L VBG O2 Saturation (70-76) % VBG Base Excess (-2-2) mmol/L BUN 19 H (7-18) mg/dL Estimated GFR 86 L (>89) mL/min POC Glucose 394 H (68-110) mg/dl Random Glucose 144 H (74-106) mg/dL Lactic Acid (0.4-2.0) mmol/L AST (15-37) U/L Troponin I (0.02-0.05) ng/mL B-Natriuretic Peptide (0-100) pg/mL Urine Mucus (Occasional) /lpf 10/14/17 Range/Units 07:43 WBC (4.0-11.0) th/mm3 RBC (4.50-5.90) mil/mm3 Neut % (Auto) (16.0-70.0) % Lymph % (Auto) (9.0-44.0) % Bonner % (Auto) (0.0-8.0) % Neut # (Auto) (1.8-7.7) th/mm3 Lymph # (Auto) (1.0-4.8) th/mm3 Bonner # (Auto) (0.0-0.9) th/mm3 PT (9.8-11.6) sec VBG pCO2 (44-48) mmHG VBG HCO3 (22-26) mmol/L VBG O2 Saturation (70-76) % VBG Base Excess (-2-2) mmol/L BUN (7-18) mg/dL Estimated GFR (>89) mL/min POC Glucose 144 H (68-110) mg/dl Random Glucose (74-106) mg/dL Lactic Acid (0.4-2.0) mmol/L AST (15-37) U/L Troponin I (0.02-0.05) ng/mL B-Natriuretic Peptide (0-100) pg/mL Urine Mucus (Occasional) /lpf Short CBC 10/13/17 10/14/17 Range/Units 12:00 06:15 WBC 12.9 H 11.0 (4.0-11.0) th/mm3 Hgb 15.4 14.2 (13.0-17.0) gm/dL Hct 45.6 41.3 (39.0-51.0) % Plt Count 309 268 (150-450) th/mm3 BMP 10/13/17 10/14/17 12:00 06:15 Sodium 136 142 Potassium 4.3 4.1 Chloride 100 105 Carbon Dioxide 29.4 31.0 BUN 19 H 19 H Creatinine 0.95 0.84 Calcium 8.7 8.7 Cardiac Enzymes 10/13/17 10/13/17 Range/Units 12:00 19:50 Total Creatine Kinase 47 (39-308) U/L Troponin I Less than 0.02 L Less than 0.02 L (0.02-0.05) ng/mL Liver Function 10/13/17 Range/Units 12:00 Total Bilirubin 0.6 (0.2-1.0) mg/dL AST 12 L (15-37) U/L ALT 25 (12-78) U/L Alkaline Phosphatase 68 (45-117) U/L Albumin 4.0 (3.4-5.0) g/dL Urine 10/13/17 Range/Units 13:00 Urine Color Yellow (Yellw/Straw) Urine Clarity Clear (Clear) Urine pH 6.0 (5.0-8.5) Ur Specific [place] 1.018 (1.002-1.035) Urine Protein Negative (Neg-Trace) mg/dL Urine Glucose (UA) 500 or greater (Negative) mg/dL <James Armstrong H - 10/14/17 11:04> - Imaging Impressions Chest X-Ray 10/13/17 11:48 CONCLUSION: No acute cardiopulmonary disease. <James Armstrong - 10/14/17 11:04> Physical Exam Vital signs: Vital Signs 10/13/17 20:53 10/13/17 23:45 10/14/17 00:00 Temperature 98 F Pulse Rate 86 92 H 80 Respiratory Rate 18 18 Blood Pressure 147/76 H Pulse Oximetry 98 96 10/14/17 04:00 10/14/17 04:15 10/14/17 08:00 Temperature 97.4 F L 98.4 F Pulse Rate 54 L 60 85 Respiratory Rate 18 20 Blood Pressure 161/82 H 200/97 H Pulse Oximetry 98 100 10/14/17 08:30 10/14/17 11:15 07/11/18 12:00 Temperature 97.4 F L Pulse Rate 62 87 79 Respiratory Rate 20 20 20 Blood Pressure 161/76 H Pulse Oximetry 99 99 98 10/14/17 16:00 Temperature 97.5 F L Pulse Rate 91 H Respiratory Rate 21 Blood Pressure 168/83 H Pulse Oximetry 97 Intake & Output 10/14/17 10/14/17 10/15/17 06:59 18:59 06:59 Intake Total 1773 / 1773 720 / 720 Output Total 750 / 750 Balance 1773 / 1773 -30 / -30 Intake: IV 1300 / 1300 NS Inj 1,000 ML @ 80 mls/hr IV. 1000 / 1000 CONT .[id number] [facility] Rx#:[id number] Zosyn 4.5 GM Premix 4.5 gm In 300 / 300 100 ml @ 200 mls/hr IV.SIG Q6H [facility] Rx#:[id number] Oral 473 / 473 720 / 720 Output: Urine 750 / 750 Other: Date of Last Bowel Movement 10/14/17 # Bowel Movements 1 <Korina Joe - 10/14/17 20:05> Vital Signs 10/13/17 11:27 10/13/17 11:31 10/13/17 11:45 Temperature 98.6 F 97.9 F Pulse Rate 81 71 72 Respiratory Rate 24 24 Blood Pressure 194/114 H 196/97 H Pulse Oximetry 96 99 99 10/13/17 12:31 10/13/17 13:00 10/13/17 13:37 Temperature 97.9 F 97.9 F Pulse Rate 65 82 63 Respiratory Rate 20 21 15 Blood Pressure 188/91 H 178/86 H Pulse Oximetry 99 99 10/13/17 14:50 10/13/17 16:19 10/13/17 17:10 Temperature 97.9 F Pulse Rate 86 75 86 Respiratory Rate 19 19 20 Blood Pressure 173/79 H 168/84 H 143/78 H Pulse Oximetry 100 100 10/13/17 17:18 10/13/17 19:45 10/13/17 20:00 Temperature 97.3 F L 98.2 F Pulse Rate 81 99 H 95 H Respiratory Rate 20 20 Blood Pressure 197/104 H 139/101 H Pulse Oximetry 98 10/13/17 20:53 10/13/17 23:45 10/14/17 00:00 Temperature 98 F Pulse Rate 86 92 H 80 Respiratory Rate 18 18 Blood Pressure 147/76 H Pulse Oximetry 98 96 10/14/17 04:00 10/14/17 04:15 10/14/17 08:00 Temperature 97.4 F L 98.4 F Pulse Rate 54 L 60 64 Respiratory Rate 18 20 Blood Pressure 161/82 H 200/97 H Pulse Oximetry 98 100 Intake & Output 10/13/17 10/14/17 10/14/17 18:59 06:59 18:59 Intake Total 1673 / 1673 Balance 1673 / 1673 Weight 1 g Intake: IV 1200 / 1200 NS Inj 1,000 ML @ 80 mls/hr IV. 1000 / 1000 CONT .[id number] [facility] Rx#:[id number] Zosyn 4.5 GM Premix 4.5 gm In 200 / 200 100 ml @ 200 mls/hr IV.SIG Q6H [facility] Rx#:[id number] Oral 473 / 473 Other: Weight On Admission 1 g <James Armstrong - 10/14/17 11:04> Narrative: GENERAL: Elderly gentleman lying in bed watching TV in no acute distress. SKIN: Cool and dry. No rash. HEENT: Atraumatic, normocephalic with extraocular motions intact. No rhinorrhea. No visible lymphadenopathy or jugulovenous distension appreciated. CARDIOVASCULAR: Regular rate and rhythm without obvious murmurs, gallops, or rubs. 2+ pulses in all four extremities. RESPIRATORY: Continued expiratory wheezing bilaterally throughout all lung dougherty. Prolonged expiratory phase. No obvious crackles or rhonchi. Patient currently on 2 L nasal cannula. Patient able to converse and complete sentences , however becomes increasingly short of breath with prolonged talking as well as bedside maneuvers. GASTROINTESTINAL: Abdomen soft, non-tender, nondistended with positive bowel sounds. No masses appreciated. MUSCULOSKELETAL: No cyanosis or edema. No calf tenderness. NEURO/PSYCH: Afocal. Awake, alert, and oriented x3. Normal speech and judgement. <James Armstrong H - 10/14/17 11:04> Assessment and Plan - Assessment (1) Acute exacerbation of chronic obstructive airways disease Code(s): J44.1 - Chronic obstructive pulmonary disease with (acute) exacerbation Status: Acute (2) Difficulty swallowing Code(s): R13.10 - Dysphagia, unspecified Status: Acute (3) Diabetes mellitus Code(s): E11.9 - Type 2 diabetes mellitus without complications (4) Atrial fibrillation Code(s): I48.91 - Unspecified atrial fibrillation Status: Chronic (5) HTN (hypertension) Code(s): I10 - Essential (primary) hypertension Status: Chronic (6) Hyperlipemia Code(s): E78.5 - Hyperlipidemia, unspecified Status: Acute (7) Hx of coronary artery disease Code(s): Z86.79 - Personal history of other diseases of the circulatory system Status: Acute (8) Sleep disturbance Code(s): G47.9 - Sleep disorder, unspecified Status: Acute (9) Nutrition, metabolism, and development symptoms Code(s): R63.8 - Other symptoms and signs concerning food and fluid intake Status: Acute (10) DVT prophylaxis Status: Acute <IndiraKorina ortiz - 10/14/17 20:05> (1) Acute exacerbation of chronic obstructive airways disease Code(s): J44.1 - Chronic obstructive pulmonary disease with (acute) exacerbation Status: Acute Plan: Patient met severe sepsis criteria on admission due to tachypnea of 24, WBC count of 12.9 and LA of 2.3. WBC count may be falsely elevated due to recent steroid use and lactic acid may be falsely elevated due to patient's increased work of breath for the past couple of days. Patient admits to increased dyspnea with mild exertion and cough with chest congestion. CXR was consistent with COPD history, no obvious consolidation suggestive of pneumonia. Patient has a cardiac history of CAD with stent placement, but denies chest pain. labs: -BC x2: Pending -VB.36/58/36/32 -Troponin I negative x2 -EKG with sinus rhythm -BNP: 307 medications: -Albuterol nebulizer treatment 1 amp q4h and 2.5 mg q2hr PRN -Solumedrol 40 mg IV q12h -Guaifenesin 600 mg PO BID -Azithromycin 500 mg PO daily for coverage of atypicals -Zosyn 4.5 g IV q6 for broad coverage antibiotic therapy, due to patients increased risk for pseudomonal infection -Continue home Theopylline 100 mg PO daily -Tessalon Perles 200 mg PO q8h PRN for cough ordered: -Respiratory acapella q4h ordered -Incentive spirometry ordered (2) Difficulty swallowing Code(s): R13.10 - Dysphagia, unspecified Status: Acute Plan: Patient reporting history of difficulty swallowing for "quite some time." -Speech therapy ordered to evaluate for swallow study -Plan to adjust diet as tolerated -Head of bed to be elevated to assist with respiratory symptoms as well as decrease aspiration risk (3) Diabetes mellitus Code(s): E11.9 - Type 2 diabetes mellitus without complications Plan: Patient with hx of DM. BGL likely elevated due to recently increased dose of steroids for COPD exacerbation. -Insulin Sliding Scale ordered -Hold home glipizide (4) Atrial fibrillation Code(s): I48.91 - Unspecified atrial fibrillation Status: Chronic Plan: Patient with hx of atrial fibrillation. Rate well controlled, on Metoprolol. On Warfarin for anticoagulation, INR therapeutic at 2.1. Plan to discuss with cardiology possibility of alternate medication to metoprolol due to patient's poor respiratory status. -EKG: Normal sinus rhythm. No interval abnormalities appreciated. No obvious ST elevation/depression. (Per medical team read) -Telemetry -Continue home medications: Metoprolol 50 mg PO q12h and Warfarin 3mg PO daily (5) HTN (hypertension) Code(s): I10 - Essential (primary) hypertension Status: Chronic Plan: Patient has a hx of HTN -Continue home medications: Lisinopril 10 mg PO BID and Metoprolol 50 mg PO q12h -Clonidine 0.1 mg PO q6h PRN (6) Hyperlipemia Code(s): E78.5 - Hyperlipidemia, unspecified Status: Acute Plan: Patient has hx of HDL -Continue home medication: Atorvastatin 20 mg PO HS (7) Hx of coronary artery disease Code(s): Z86.79 - Personal history of other diseases of the circulatory system Status: Acute Plan: Patient has hx of CAD with stent placement x4 -EKG as above -Troponin I negative x2 (8) Sleep disturbance Code(s): G47.9 - Sleep disorder, unspecified Status: Acute Plan: Patient states that he normally takes Alprazolam 0.5 mg at home before bedtime for sleep. -Continue home Alprazolam 0.5 mg PO HS (9) Nutrition, metabolism, and development symptoms Code(s): R63.8 - Other symptoms and signs concerning food and fluid intake Status: Acute Plan: Fluids: Deferred as patient is tolerating oral fluids well Electrolytes: No current abnormalities, will continue to monitor and replete as necessary Nutrition: Diabetic diet (speech therapy evaluation ordered for swallow evaluation) Physical therapy ordered (10) DVT prophylaxis Status: Acute Plan: DVT prophylaxis: Continue Warfarin 3mg PO daily. Bilateral SCDs. <James Armstrong - 10/14/17 17:15> - Assessment and Plan 87 year old male with hx of COPD, DM, atrial fibrillation and HTN, presented to the ED for shortness of breath consistent with COPD exacerbation <James Armstrong - 10/14/17 11:04> - Attending Attestation Patient seen and examined today, discussed with resident team. I agree with assessment and management as documented and discussed with me. Pt now requiring 2lpm, improved from 3lpm overnight. Continue current management. <Korina Joe - 10/14/17 20:05> <James Armstrong H - Last Filed: 10/14/17 17:15> (2) Difficulty swallowing Qualifiers: Dysphagia type: unspecified Qualified Code(s): R13.10 - Dysphagia, unspecified (3) Diabetes mellitus Qualifiers: Diabetes mellitus type: type 2 Diabetes mellitus mcfp insulin use: without mcfp use Diabetes mellitus complication status: with unspecified complications Qualified Code(s): E11.8 - Type 2 diabetes mellitus with unspecified complications <Korina Joe - Last Filed: 10/14/17 20:05> (2) Difficulty swallowing Qualifiers: Dysphagia type: unspecified Qualified Code(s): R13.10 - Dysphagia, unspecified (3) Diabetes mellitus Qualifiers: Diabetes mellitus type: type 2 Diabetes mellitus circulation worker insulin use: without circulation worker use Diabetes mellitus complication status: with unspecified complications Qualified Code(s): E11.8 - Type 2 diabetes mellitus with unspecified complications <James Armstrong - Last Filed: 10/14/17 17:15> (2) Difficulty swallowing Qualifiers: Dysphagia type: unspecified Qualified Code(s): R13.10 - Dysphagia, unspecified (3) Diabetes mellitus Qualifiers: Diabetes mellitus type: type 2 Diabetes mellitus circulation worker insulin use: without circulation worker use Diabetes mellitus complication status: with unspecified complications Qualified Code(s): E11.8 - Type 2 diabetes mellitus with unspecified complications <Korina Joe - Last Filed: 10/14/17 20:05> (2) Difficulty swallowing Qualifiers: Dysphagia type: unspecified Qualified Code(s): R13.10 - Dysphagia, unspecified (3) Diabetes mellitus Qualifiers: Diabetes mellitus type: type 2 Diabetes mellitus circulation worker insulin use: without circulation worker use Diabetes mellitus complication status: with unspecified complications Qualified Code(s): E11.8 - Type 2 diabetes mellitus with unspecified complications
[2017-10-14] MEDS: ALPRAZolam 0.5 MG Tablet PO SCH (20:28)
[2017-10-15] MEDS: Piperacil/Tazo 4.5 GM Premix 4.5 GM/100 ML BAG IV.SIG SCH ×4 (00:25→12:05)
[2017-10-15] MEDS: Isosorbide Mononitrate 30 MG ER 24HR Tablet (Imdur) PO SCH (06:07)
[2017-10-15] MEDS: Sod Chloride 0.9% Inj 1,000 ML IV.CONT SCH ×2 (06:12→17:33)
[2017-10-15] MEDS: Azithromycin 250 MG Tablet PO SCH (08:15)
[2017-10-15] MEDS: Calcium/Vitamin D 250/125 MG Tablet PO SCH ×2 (08:15→20:08)
[2017-10-15] MEDS: Pantoprazole Sodium 20 MG DR Tablet PO SCH (08:15)
[2017-10-15] MEDS: guaiFENesin 600 MG ER Tablet PO SCH ×2 (08:16→20:10)
[2017-10-15] MEDS: Lisinopril 10 MG Tablet PO SCH ×2 (08:16→20:07)
[2017-10-15] MEDS: MethylPREDNISolone Sod Succinate Inj 40 MG/ML Vial IV.PUSH SCH ×2 (08:17→20:12)
[2017-10-15] MEDS: Insulin NovoLOG Aspart Correctional Sugar Inj SQ SCH ×4 (08:17→20:11)
[2017-10-15] MEDS: Theophylline ER 24 HR 100 MG Capsule PO SCH (08:18)
--- NOTE | 2017-10-15 11:47 | P.PNFP ---
Subjective Interval history: Patient seen and examined this morning. Patient states that he is breathing more easily and continues to have a mild cough with little sputum. He is able to complete full sentences. Patient is unhappy with change to diet. We explained the importance of the diet due to his history of dysphagia and possibility of aspiration, however he remains up concerned, stating that he is in the hospital for a COPD exacerbation and can "deal with his swallowing later". He states that he would like to return home and continue receiving pulmonary rehab in the [facility] building, as he has in the past. Patient denies fever, chills, nausea, vomiting, chest pain, abdominal pain, or leg pain. <Melly Griffiths - 10/15/17 19:26> Results - Labs Result diagrams: 10/15/17 11:50 10/15/17 11:50 <Korina Joe - 10/15/17 20:51> Abnormal lab results 10/15/17 10/15/17 10/15/17 Range/Units 07:23 11:06 11:50 WBC 16.3 H (4.0-11.0) th/mm3 Neut % (Auto) 93.3 H (16.0-70.0) % Lymph % (Auto) 3.1 L (9.0-44.0) % Neut # (Auto) 15.2 H (1.8-7.7) th/mm3 Lymph # (Auto) 0.5 L (1.0-4.8) th/mm3 PT (9.8-11.6) sec ABG pCO2 (38-42) mmHg ABG HCO3 (22-26) mmol/L ABG Base Excess (-2-2) mmol/L BUN (7-18) mg/dL Estimated GFR (>89) mL/min POC Glucose 185 H 233 H (68-110) mg/dl Random Glucose (74-106) mg/dL 10/15/17 10/15/17 10/15/17 Range/Units 11:50 11:50 16:32 WBC (4.0-11.0) th/mm3 Neut % (Auto) (16.0-70.0) % Lymph % (Auto) (9.0-44.0) % Neut # (Auto) (1.8-7.7) th/mm3 Lymph # (Auto) (1.0-4.8) th/mm3 PT 34.5 H D (9.8-11.6) sec ABG pCO2 55 H* (38-42) mmHg ABG HCO3 32 H (22-26) mmol/L ABG Base Excess 6.8 H (-2-2) mmol/L BUN 20 H (7-18) mg/dL Estimated GFR 69 L (>89) mL/min POC Glucose (68-110) mg/dl Random Glucose 212 H (74-106) mg/dL 10/15/17 10/15/17 Range/Units 17:07 19:15 WBC (4.0-11.0) th/mm3 Neut % (Auto) (16.0-70.0) % Lymph % (Auto) (9.0-44.0) % Neut # (Auto) (1.8-7.7) th/mm3 Lymph # (Auto) (1.0-4.8) th/mm3 PT (9.8-11.6) sec ABG pCO2 (38-42) mmHg ABG HCO3 (22-26) mmol/L ABG Base Excess (-2-2) mmol/L BUN (7-18) mg/dL Estimated GFR (>89) mL/min POC Glucose 237 H 201 H (68-110) mg/dl Random Glucose (74-106) mg/dL Short CBC 10/15/17 Range/Units 11:50 WBC 16.3 H (4.0-11.0) th/mm3 Hgb 15.6 (13.0-17.0) gm/dL Hct 46.9 (39.0-51.0) % Plt Count 288 (150-450) th/mm3 [facility] 10/15/17 11:50 Sodium 139 Potassium 4.2 Chloride 101 Carbon Dioxide 31.5 BUN 20 H Creatinine 1.02 Calcium 8.7 <Korina Joe - 10/15/17 20:51> Abnormal lab results 10/14/17 10/14/17 10/14/17 Range/Units 12:14 17:15 19:51 POC Glucose 253 H 248 H 168 H (68-110) mg/dl 10/15/17 10/15/17 Range/Units 07:23 11:06 POC Glucose 185 H 233 H (68-110) mg/dl <Melly Griffiths - 10/15/17 11:47> Physical Exam Vital signs: Vital Signs 10/14/17 20:55 10/15/17 00:00 10/15/17 00:40 Temperature 98.2 F Pulse Rate 76 75 98 H Respiratory Rate 16 18 Blood Pressure 168/103 H Pulse Oximetry 98 98 10/15/17 04:00 10/15/17 04:05 10/15/17 08:00 Temperature 97.5 F L 97.3 F L Pulse Rate 67 56 L 83 Respiratory Rate 18 18 Blood Pressure 178/89 H 128/70 Pulse Oximetry 98 97 10/15/17 12:00 10/15/17 12:22 10/15/17 16:00 Temperature 97.8 F 97.4 F L Pulse Rate 77 78 79 Respiratory Rate 18 17 18 Blood Pressure 181/88 H 192/100 H Pulse Oximetry 98 100 10/15/17 17:40 10/15/17 19:57 Temperature Pulse Rate 74 58 L Respiratory Rate 17 16 Blood Pressure Pulse Oximetry 99 Intake & Output 10/15/17 10/15/17 10/16/17 06:59 18:59 06:59 Intake Total 440 / 440 1840 / 1840 Output Total 1750 / 1750 800 / 800 Balance -1310 / -1310 1040 / 1040 Weight 78.2 kg Intake: IV 200 / 200 1000 / 1000 NS Inj 1,000 ML @ 80 mls/hr IV. 1000 / 1000 CONT .[id number] SUHAS Rx#:[id number] Zosyn 4.5 GM Premix 4.5 gm In 200 / 200 100 ml @ 200 mls/hr IV.SIG Q6H SUHAS Rx#:[id number] Oral 240 / 240 840 / 840 Output: Urine 1750 / 1750 800 / 800 Other: Date of Last Bowel Movement 10/14/17 <IndiraKorina ortiz - 10/15/17 20:51> Vital Signs 10/14/17 12:00 10/14/17 16:00 10/14/17 20:00 Temperature 97.4 F L 97.5 F L 97.6 F Pulse Rate 79 91 H 83 Respiratory Rate 20 21 19 Blood Pressure 161/76 H 168/83 H 204/104 H Pulse Oximetry 98 97 100 10/14/17 20:20 10/14/17 20:55 10/15/17 00:00 Temperature 98.2 F Pulse Rate 76 76 75 Respiratory Rate 16 18 Blood Pressure 168/103 H Pulse Oximetry 98 98 10/15/17 00:40 10/15/17 04:00 10/15/17 04:05 Temperature 97.5 F L Pulse Rate 98 H 67 56 L Respiratory Rate 18 Blood Pressure 178/89 H Pulse Oximetry 98 10/15/17 08:00 Temperature 97.3 F L Pulse Rate 83 Respiratory Rate 18 Blood Pressure 128/70 Pulse Oximetry 97 Intake & Output 10/14/17 10/15/17 10/15/17 18:59 06:59 18:59 Intake Total 1820 / 1820 340 / 340 Output Total 750 / 750 1750 / 1750 Balance 1070 / 1070 -1410 / -1410 Weight 78.2 kg Intake: IV 1100 / 1100 100 / 100 NS Inj 1,000 ML @ 80 mls/hr IV. 1000 / 1000 CONT .[id number] SUHAS Rx#:[id number] Zosyn 4.5 GM Premix 4.5 gm In 100 / 100 100 / 100 100 ml @ 200 mls/hr IV.SIG Q6H SUHAS Rx#:[id number] Oral 720 / 720 240 / 240 Output: Urine 750 / 750 1750 / 1750 Other: Date of Last Bowel Movement 10/14/17 10/14/17 # Bowel Movements 1 <Melly Griffiths B - 10/15/17 11:47> Narrative: Narrative: GENERAL: Elderly gentleman sitting up in speaking with his , in no acute distress. SKIN: Cool and dry. No rash. HEENT: Atraumatic, normocephalic with extraocular motions intact. No rhinorrhea. No visible lymphadenopathy or JVD appreciated. CARDIOVASCULAR: Irregularly irregular without obvious murmurs, gallops, or rubs. 2+ pulses in all four extremities. RESPIRATORY: Clear to auscultation bilaterally. No expiratory wheeze. Prolonged expiratory phase. No obvious crackles or rhonchi. Patient currently on 2 L nasal cannula. Able to speak in full sentences without shortness of breath. Patient able to converse in complete sentences, however becomes increasingly short of breath with bedside maneuvers. GASTROINTESTINAL: Abdomen soft, non-tender, nondistended with positive bowel sounds. No masses appreciated. MUSCULOSKELETAL: No cyanosis or edema. No calf tenderness. NEURO/PSYCH: Afocal. Awake, alert, and oriented x3. Normal speech and judgement. <Melly Griffiths Audelia - 10/15/17 19:26> Assessment and Plan - Assessment (1) Acute exacerbation of chronic obstructive airways disease Code(s): J44.1 - Chronic obstructive pulmonary disease with (acute) exacerbation Status: Acute (2) Difficulty swallowing Code(s): R13.10 - Dysphagia, unspecified Status: Acute (3) Diabetes mellitus Code(s): E11.9 - Type 2 diabetes mellitus without complications (4) Atrial fibrillation Code(s): I48.91 - Unspecified atrial fibrillation Status: Chronic (5) HTN (hypertension) Code(s): I10 - Essential (primary) hypertension Status: Chronic (6) Hyperlipemia Code(s): E78.5 - Hyperlipidemia, unspecified Status: Chronic (7) Hx of coronary artery disease Code(s): Z86.79 - Personal history of other diseases of the circulatory system Status: Chronic (8) Sleep disturbance Code(s): G47.9 - Sleep disorder, unspecified Status: Chronic (9) Nutrition, metabolism, and development symptoms Code(s): R63.8 - Other symptoms and signs concerning food and fluid intake Status: Acute (10) DVT prophylaxis Status: Acute <Korina Joe - 10/15/17 20:51> (1) Acute exacerbation of chronic obstructive airways disease Code(s): J44.1 - Chronic obstructive pulmonary disease with (acute) exacerbation Status: Acute Plan: Patient met severe sepsis criteria on admission due to tachypnea of 24, WBC count of 12.9 and LA of 2.3. WBC count may be falsely elevated due to recent steroid use and lactic acid may be falsely elevated due to patient's increased work of breath for the past couple of days. Patient admits to increased dyspnea with mild exertion and cough with chest congestion. CXR was consistent with COPD history, no obvious consolidation suggestive of pneumonia. Patient has a cardiac history of CAD with stent placement, but denies chest pain. 10/11 Yesterday patient wanted to be seen by his medical assistant internal medicine, Dr. Krishnan, who was contacted yesterday. Still awaiting pulmonology consult, however, patient is stable for discharge from a medical standpoint at this time. Plan for discharge following pulmonology consult today, if cleared. Plan to switch to PO antibiotics. medications: -Albuterol nebulizer treatment 1 amp q4h and 2.5 mg q2hr PRN -Solumedrol 40 mg IV q12h, will change to Prednisone 50mg PO daily for 3 days. -Guaifenesin 600 mg PO BID -Azithromycin 500 mg PO daily for coverage of atypicals -Zosyn 4.5 g IV q6 for broad coverage antibiotic therapy, due to patients increased risk for pseudomonal infection -Continue home Theopylline 100 mg PO daily -Tessalon Perles 200 mg PO q8h PRN for cough ordered: -Respiratory acapella q4h ordered -Incentive spirometry ordered (2) Difficulty swallowing Code(s): R13.10 - Dysphagia, unspecified Status: Acute Plan: Patient reporting history of difficulty swallowing for "quite some time." -Speech therapy recommended mechanical soft diet yesterday. -Plan to adjust diet as tolerated. -Head of bed to be elevated to assist with respiratory symptoms as well as decrease aspiration risk (3) Diabetes mellitus Code(s): E11.9 - Type 2 diabetes mellitus without complications Plan: Patient with hx of DM. BGL likely elevated due to recently increased dose of steroids for COPD exacerbation. -Insulin Sliding Scale ordered -Hold home glipizide (4) Atrial fibrillation Code(s): I48.91 - Unspecified atrial fibrillation Status: Chronic Plan: Patient with hx of atrial fibrillation. Rate well controlled, on Metoprolol. On Warfarin for anticoagulation, INR therapeutic at 2.1. Plan to discuss with cardiology possibility of alternate medication to metoprolol due to patient's poor respiratory status. -EKG: Normal sinus rhythm. No interval abnormalities appreciated. No obvious ST elevation/depression. (Per medical team read) -Telemetry -Continue home medications: Metoprolol 50 mg PO q12h and Warfarin 3mg PO daily (5) HTN (hypertension) Code(s): I10 - Essential (primary) hypertension Status: Chronic Plan: Patient has a hx of HTN -Continue home medications: Lisinopril 10 mg PO BID and Metoprolol 50 mg PO q12h -Clonidine 0.1 mg PO q6h PRN (6) Hyperlipemia Code(s): E78.5 - Hyperlipidemia, unspecified Status: Chronic Plan: Patient has hx of HDL -Continue home medication: Atorvastatin 20 mg PO HS (7) Hx of coronary artery disease Code(s): Z86.79 - Personal history of other diseases of the circulatory system Status: Chronic Plan: Patient has hx of CAD with stent placement x4 -EKG as above -Troponin I negative x2 (8) Sleep disturbance Code(s): G47.9 - Sleep disorder, unspecified Status: Chronic Plan: Patient states that he normally takes Alprazolam 0.5 mg at home before bedtime for sleep. -Continue home Alprazolam 0.5 mg PO HS (9) Nutrition, metabolism, and development symptoms Code(s): R63.8 - Other symptoms and signs concerning food and fluid intake Status: Acute Plan: Fluids: Deferred as patient is tolerating oral fluids well Electrolytes: No current abnormalities, will continue to monitor and replete as necessary Nutrition: Diabetic diet, mechanical soft and thin liquids recommended per speech therapy Physical therapy ordered (10) DVT prophylaxis Status: Acute Plan: DVT prophylaxis: Continue Warfarin 3mg PO daily. Bilateral SCDs. <Melly Griffiths - 10/15/17 19:11> - Assessment and Plan 87 year old male with hx of COPD, DM, atrial fibrillation and HTN, presented to the ED for shortness of breath consistent with COPD exacerbation <Melly Griffiths - 10/15/17 19:26> Discussed Condition With: Dr. Joe <Melly Griffiths - 10/15/17 19:26> - Attending Attestation Patient seen, examined today, and discussed with Dr Griffiths. I agree with assessment and management as documented and discussed with me. Pt seen with at bedside. He is maintaining sats on 2lpm by nasal cannula. He is upset regarding diet changes (due to speech eval), and is speaking in a loud tone and in long sentences without difficulty. Lungs are much clearer today. No wheeze. Anticipate discharge tomorrow. <Korina Joe - 10/15/17 20:51> <Melly Griffiths B - Last Filed: 10/15/17 19:11> (2) Difficulty swallowing Qualifiers: Dysphagia type: unspecified Qualified Code(s): R13.10 - Dysphagia, unspecified (3) Diabetes mellitus Qualifiers: Diabetes mellitus type: type 2 Diabetes mellitus fci insulin use: without local intermodal truck driver use Diabetes mellitus complication status: with unspecified complications Qualified Code(s): E11.8 - Type 2 diabetes mellitus with unspecified complications <Vey,Korina - Last Filed: 10/15/17 20:51> (2) Difficulty swallowing Qualifiers: Dysphagia type: unspecified Qualified Code(s): R13.10 - Dysphagia, unspecified (3) Diabetes mellitus Qualifiers: Diabetes mellitus type: type 2 Diabetes mellitus fci insulin use: without fci use Diabetes mellitus complication status: with unspecified complications Qualified Code(s): E11.8 - Type 2 diabetes mellitus with unspecified complications <Melly Griffiths B - Last Filed: 10/15/17 19:11> (2) Difficulty swallowing Qualifiers: Dysphagia type: unspecified Qualified Code(s): R13.10 - Dysphagia, unspecified (3) Diabetes mellitus Qualifiers: Diabetes mellitus type: type 2 Diabetes mellitus local intermodal truck driver insulin use: without fci use Diabetes mellitus complication status: with unspecified complications Qualified Code(s): E11.8 - Type 2 diabetes mellitus with unspecified complications <Vey,Korina - Last Filed: 10/15/17 20:51> (2) Difficulty swallowing Qualifiers: Dysphagia type: unspecified Qualified Code(s): R13.10 - Dysphagia, unspecified (3) Diabetes mellitus Qualifiers: Diabetes mellitus type: type 2 Diabetes mellitus local intermodal truck driver insulin use: without local intermodal truck driver use Diabetes mellitus complication status: with unspecified complications Qualified Code(s): E11.8 - Type 2 diabetes mellitus with unspecified complications
[2017-10-15 12:20] LABS: Hematocrit 46.9 % (39.0-51.0); Hemoglobin 15.6 gm/dL (13.0-17.0); Lymph # (Auto) 0.5 th/mm3 (1.0-4.8); Lymph % (Auto) 3.1 % (9.0-44.0); Mean Corpuscular HGB Conc 33.3 % (32.0-36.0); Mean Corpuscular Hemoglobin 31.3 pg (27.0-34.0); Mean Platelet Volume 8.5 fL (7.0-11.0); Mono # (Auto) 0.6 th/mm3 (0.0-0.9); Mono % (Auto) 3.6 % (0.0-8.0); Neut # (Auto) 15.2 th/mm3 (1.8-7.7); Neut % (Auto) 93.3 % (16.0-70.0); Platelet Count 288 th/mm3 (150-450); White Blood Count 16.3 th/mm3 (4.0-11.0)
[2017-10-15 12:45] LABS: Calcium 8.7 mg/dL (8.5-10.1); Carbon Dioxide 31.5 meq/L (21.0-32.0); Potassium 4.2 meq/L (3.5-5.1)
[2017-10-15 12:50] LABS: INR 3.4 Ratio; Prothrombin Time 34.5 sec (9.8-11.6)
--- NOTE | 2017-10-15 15:15 | MB ---
cc: Inder Krishnan MD DATE: 10/15/2017 HISTORY OF PRESENT ILLNESS: Mr. Cordero is a patient, 86 years of age, known to me for a decade with very severe COPD. Pulmonary functions are in the range of 25% and he has been on chronic oxygen at home, low dose of prednisone 5 mg daily along with bronchodilators, including Asmanex, Proventil and a nebulizer with albuterol 3 times a day. He also uses Stiolto and 100 mg of theophylline a day. He presented with weakness, increasing dyspnea 48 hours ago was begun on aerosolized bronchodilators, corticosteroids and antibiotics and is feeling better. He is still very weak and debilitated, has not really been out of bed at this point. He has experienced no chest pain or palpitations. He does have a history of coronary artery disease, is followed carefully by Dr. Palencia and has had no recent interventions. He has had no anginal chest pain, orthopnea or PND. No increasing edema. Chest x-ray was clear on admission. He has had no chest pain, no increasing edema. He has had no purulent sputum or hemoptysis just progressive dyspnea and weakness. PAST MEDICAL HISTORY: Coronary artery disease, mild bronchiectasis, atrial fibrillation, hypertension, cholecystectomy, appendectomy, previous stents in his coronary arteries, BPH, left knee surgery and a distant history of pneumonia. FAMILY HISTORY: Mother in a motor vehicle accident. Father unknown. Two sons and a daughter. SOCIAL HISTORY: He smoked for about 40-50 pack years, quit smoking in 1983. 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 , living with his . Drinks occasional glass of wine. No animal exposures. MEDICATIONS: Reviewed in the EMR. REVIEW OF SYSTEMS: Other than that noted above. No other presenting symptoms. Again, primarily shortness of breath and exhaustion. PHYSICAL EXAMINATION: GENERAL: He is awake, alert, comfortable at rest. VITAL SIGNS: Afebrile, pulse rate is 90, blood pressure has been running on the high side 160/80-200/100, respirations 18-22. HEENT: Sclerae are anicteric. Mucous membranes are moist. NECK: Veins are not distended. CHEST: Diminished throughout with expiratory wheezes. HEART: No harsh murmur. No audible S3. ABDOMEN: Soft. EXTREMITIES: No peripheral edema or calf tenderness. ASSESSMENT AND PLAN: Mr. Cordero presents with what appears to be an acute exacerbation of his underlying chronic obstructive pulmonary disease but no evidence of pneumonia or heart failure at least radiographically. He has responded to the above-mentioned therapy, but he has not been ambulatory yet. I suggest we get him up today, make sure he can be active. He has an attentive at home, but she is also elderly and has a difficult time caring for him when he is totally immobilized. Hopefully, over the next 24-48 hours, his activity level can be increased, we can switch him over to oral therapy and discharge him home with outpatient followup. R. MD MADONNA Amaral/DESMOND , 02:57 PM , 03:13 PM
[2017-10-15] MEDS ORDERED: Azithromycin 250 MG Tablet PO SCH (15:30)
[2017-10-15 16:38] LABS: ABG Base Excess 6.8 mmol/L (-2-2); ABG PCO2 55 mmHg (38-42); ABG PO2 117 mmHg (61-120)
[2017-10-15] MEDS: ALPRAZolam 0.5 MG Tablet PO SCH (20:10)
[2017-10-16] MEDS: Isosorbide Mononitrate 30 MG ER 24HR Tablet (Imdur) PO SCH (06:18)
[2017-10-16] MEDS: Insulin NovoLOG Aspart Correctional Sugar Inj SQ SCH ×2 (08:39→12:16)
[2017-10-16] MEDS: MethylPREDNISolone Sod Succinate Inj 40 MG/ML Vial IV.PUSH SCH (08:41)
[2017-10-16] MEDS: Calcium/Vitamin D 250/125 MG Tablet PO SCH (08:43)
[2017-10-16] MEDS: guaiFENesin 600 MG ER Tablet PO SCH (08:43)
[2017-10-16] MEDS: Lisinopril 10 MG Tablet PO SCH (08:43)
[2017-10-16] MEDS: Pantoprazole Sodium 20 MG DR Tablet PO SCH (08:43)
[2017-10-16] MEDS ORDERED: Azithromycin 250 MG Tablet PO SCH (09:00)
--- NOTE | 2017-10-16 09:19 | MD ---
cc: Inder Krishnan MD DATE OF DISCHARGE: HISTORY AND HOSPITAL COURSE: Mr. Cordero is an 87-year-old white male whom I have followed for years with very severe COPD. FEV1 is in the range of 20-25%. He had been gradually declining as an outpatient. Outpatient management was not working, so he presented to the emergency room and was admitted for an acute exacerbation of COPD. Chest x-ray revealed no infiltrates, no evidence of pneumonia. He was treated with aerosolized bronchodilators, oxygen, corticosteroids and antibiotics and is feeling better, although he is really quite weak and debilitated. No evidence of significant cardiovascular problems at this time. Arterial blood gases yesterday on 3 liters, his pO2 was 117 with a pH 7.38 and a pCO2 of 55. He is on oxygen continuously at home at 2 liters. PHYSICAL EXAMINATION: GENERAL: He is awake, alert, comfortable at rest. VITAL SIGNS: Afebrile, pulse is 80, blood pressure is 170/86, O2 saturation is 98%, respirations are nonlabored at 18-22. CHEST: No longer any wheezing, but markedly diminished breath sounds. CARDIAC: No harsh murmur and no peripheral edema. ASSESSMENT: Melquiades is stable for discharge. He is quite debilitated, but says that he would like to try to recover at home without going to nursing rehabilitation. He does have a very attentive , who cares for him. DISCHARGE INSTRUCTIONS: We will see him back in the office in 2 weeks. If stable, he knows he can call prior to that, although because I will be away, there will be a physician covering. We will send him home on a slow tapering course of prednisone, along with his usual bronchodilator regimen. MD MADONNA Trevizo/WALTER , 08:47 AM , 09:19 AM
[2017-10-16 09:39] LABS: Hematocrit 42.1 % (39.0-51.0); Mean Corpuscular HGB Conc 33.3 % (32.0-36.0); Mean Corpuscular Volume 93.2 fL (80.0-100.0); Mean Platelet Volume 8.5 fL (7.0-11.0); Platelet Count 261 th/mm3 (150-450); Red Blood Count 4.52 mil/mm3 (4.50-5.90); Red Cell Distribution Width 14.1 % (11.6-17.2); White Blood Count 14.7 th/mm3 (4.0-11.0)
[2017-10-16 09:50] LABS: INR 2.8 Ratio; Prothrombin Time 28.6 sec (9.8-11.6)
--- NOTE | 2017-10-16 09:58 | P.PNFP ---
Subjective Interval history: Patient seen and examined this morning. He states that Dr. Krishnan came to see him and said he could go home. He says that he is feeling much better. He is able to walk to the bathroom without becoming short of breath. No chest pain, no abdominal pain, urinating and defecating well. No complaints. He states that he has exercising that he is going to start doing at home so he can return to pulmonary rehab as soon as he can. <Malia Mccoy - 10/16/17 09:58> Results - Labs Result diagrams: 10/16/17 09:01 10/16/17 09:01 <Korina Joe - 10/16/17 20:03> Abnormal lab results 10/16/17 10/16/17 10/16/17 Range/Units 07:53 09:01 09:01 WBC 14.7 H (4.0-11.0) th/mm3 PT 28.6 H (9.8-11.6) sec Carbon Dioxide (21.0-32.0) meq/L BUN (7-18) mg/dL POC Glucose 191 H (68-110) mg/dl Random Glucose (74-106) mg/dL 10/16/17 Range/Units 09:01 WBC (4.0-11.0) th/mm3 PT (9.8-11.6) sec Carbon Dioxide 33.2 H (21.0-32.0) meq/L BUN 22 H (7-18) mg/dL POC Glucose (68-110) mg/dl Random Glucose 151 H (74-106) mg/dL Short CBC 10/16/17 Range/Units 09:01 WBC 14.7 H (4.0-11.0) th/mm3 Hgb 14.0 (13.0-17.0) gm/dL Hct 42.1 (39.0-51.0) % Plt Count 261 (150-450) th/mm3 BMP 10/16/17 09:01 Sodium 140 Potassium 4.0 Chloride 102 Carbon Dioxide 33.2 H BUN 22 H Creatinine 0.78 Calcium 8.5 <Korina Joe - 10/16/17 20:03> Abnormal lab results 10/15/17 10/15/17 10/15/17 Range/Units 11:06 11:50 11:50 WBC 16.3 H (4.0-11.0) th/mm3 Neut % (Auto) 93.3 H (16.0-70.0) % Lymph % (Auto) 3.1 L (9.0-44.0) % Neut # (Auto) 15.2 H (1.8-7.7) th/mm3 Lymph # (Auto) 0.5 L (1.0-4.8) th/mm3 PT 34.5 H D (9.8-11.6) sec ABG pCO2 (38-42) mmHg ABG HCO3 (22-26) mmol/L ABG Base Excess (-2-2) mmol/L BUN (7-18) mg/dL Estimated GFR (>89) mL/min POC Glucose 233 H (68-110) mg/dl Random Glucose (74-106) mg/dL 10/15/17 10/15/17 10/15/17 Range/Units 11:50 16:32 17:07 WBC (4.0-11.0) th/mm3 Neut % (Auto) (16.0-70.0) % Lymph % (Auto) (9.0-44.0) % Neut # (Auto) (1.8-7.7) th/mm3 Lymph # (Auto) (1.0-4.8) th/mm3 PT (9.8-11.6) sec ABG pCO2 55 H* (38-42) mmHg ABG HCO3 32 H (22-26) mmol/L ABG Base Excess 6.8 H (-2-2) mmol/L BUN 20 H (7-18) mg/dL Estimated GFR 69 L (>89) mL/min POC Glucose 237 H (68-110) mg/dl Random Glucose 212 H (74-106) mg/dL 10/15/17 10/16/17 10/16/17 Range/Units 19:15 07:53 09:01 WBC 14.7 H (4.0-11.0) th/mm3 Neut % (Auto) (16.0-70.0) % Lymph % (Auto) (9.0-44.0) % Neut # (Auto) (1.8-7.7) th/mm3 Lymph # (Auto) (1.0-4.8) th/mm3 PT (9.8-11.6) sec ABG pCO2 (38-42) mmHg ABG HCO3 (22-26) mmol/L ABG Base Excess (-2-2) mmol/L BUN (7-18) mg/dL Estimated GFR (>89) mL/min POC Glucose 201 H 191 H (68-110) mg/dl Random Glucose (74-106) mg/dL 10/16/17 Range/Units 09:01 WBC (4.0-11.0) th/mm3 Neut % (Auto) (16.0-70.0) % Lymph % (Auto) (9.0-44.0) % Neut # (Auto) (1.8-7.7) th/mm3 Lymph # (Auto) (1.0-4.8) th/mm3 PT 28.6 H (9.8-11.6) sec ABG pCO2 (38-42) mmHg ABG HCO3 (22-26) mmol/L ABG Base Excess (-2-2) mmol/L BUN (7-18) mg/dL Estimated GFR (>89) mL/min POC Glucose (68-110) mg/dl Random Glucose (74-106) mg/dL Short CBC 10/15/17 10/16/17 Range/Units 11:50 09:01 WBC 16.3 H 14.7 H (4.0-11.0) th/mm3 Hgb 15.6 14.0 (13.0-17.0) gm/dL Hct 46.9 42.1 (39.0-51.0) % Plt Count 288 261 (150-450) th/mm3 [facility] 10/15/17 11:50 Sodium 139 Potassium 4.2 Chloride 101 Carbon Dioxide 31.5 BUN 20 H Creatinine 1.02 Calcium 8.7 <Malia Mccoy G - 10/16/17 09:58> Physical Exam Vital signs: Vital Signs 10/15/17 23:45 10/15/17 23:50 10/16/17 00:00 Temperature 97.3 F L Pulse Rate 92 H 87 72 Respiratory Rate 22 20 Blood Pressure 168/82 H Pulse Oximetry 95 10/16/17 03:34 10/16/17 04:00 10/16/17 08:00 Temperature 97.4 F L 97.4 F L Pulse Rate 78 99 H 73 Respiratory Rate 15 20 18 Blood Pressure 194/98 H 169/86 H Pulse Oximetry 98 99 10/16/17 08:18 10/16/17 10:01 10/16/17 11:35 Temperature Pulse Rate 81 74 72 Respiratory Rate 17 17 Blood Pressure Pulse Oximetry 98 10/16/17 12:00 10/16/17 12:09 Temperature 97.8 F Pulse Rate 79 95 H Respiratory Rate 18 Blood Pressure 148/76 H Pulse Oximetry 97 Intake & Output 10/16/17 10/16/17 10/17/17 06:59 18:59 06:59 Intake Total 315 / 315 Output Total 860 / 860 Balance -545 / -545 Intake: Oral 240 / 240 Oral Supplement 75 / 75 Output: Urine 860 / 860 Other: Date of Last Bowel Movement 10/16/17 10/16/17 # Bowel Movements 1 <Korina Joe - 10/16/17 20:03> Vital Signs 10/15/17 12:00 10/15/17 12:22 10/15/17 16:00 Temperature 97.8 F 97.4 F L Pulse Rate 77 78 79 Respiratory Rate 18 17 18 Blood Pressure 181/88 H 192/100 H Pulse Oximetry 98 100 10/15/17 17:40 10/15/17 19:57 10/15/17 20:00 Temperature 97.3 F L Pulse Rate 74 58 L 108 H Respiratory Rate 17 16 20 Blood Pressure 154/80 H Pulse Oximetry 99 10/15/17 23:45 10/15/17 23:50 10/16/17 00:00 Temperature 97.3 F L Pulse Rate 92 H 87 72 Respiratory Rate 22 20 Blood Pressure 168/82 H Pulse Oximetry 95 10/16/17 03:34 10/16/17 04:00 10/16/17 08:00 Temperature 97.4 F L 97.4 F L Pulse Rate 78 99 H 73 Respiratory Rate 15 20 18 Blood Pressure 194/98 H 169/86 H Pulse Oximetry 98 99 Intake & Output 10/15/17 10/16/17 10/16/17 18:59 06:59 18:59 Intake Total 1840 / 1840 315 / 315 Output Total 800 / 800 860 / 860 Balance 1040 / 1040 -545 / -545 Intake: IV 1000 / 1000 NS Inj 1,000 ML @ 80 mls/hr IV. 1000 / 1000 CONT .[id number] [facility] Rx#:[id number] Oral 840 / 840 240 / 240 Oral Supplement 75 / 75 Output: Urine 800 / 800 860 / 860 Other: Date of Last Bowel Movement 10/16/17 # Bowel Movements 1 <Malia Mccoy - 10/16/17 09:58> Assessment and Plan - Assessment (1) Acute exacerbation of chronic obstructive airways disease Code(s): J44.1 - Chronic obstructive pulmonary disease with (acute) exacerbation Status: Acute (2) Difficulty swallowing Code(s): R13.10 - Dysphagia, unspecified Status: Acute (3) Diabetes mellitus Code(s): E11.9 - Type 2 diabetes mellitus without complications (4) Atrial fibrillation Code(s): I48.91 - Unspecified atrial fibrillation Status: Chronic (5) HTN (hypertension) Code(s): I10 - Essential (primary) hypertension Status: Chronic (6) Hyperlipemia Code(s): E78.5 - Hyperlipidemia, unspecified Status: Chronic (7) Hx of coronary artery disease Code(s): Z86.79 - Personal history of other diseases of the circulatory system Status: Chronic (8) Sleep disturbance Code(s): G47.9 - Sleep disorder, unspecified Status: Chronic (9) Nutrition, metabolism, and development symptoms Code(s): R63.8 - Other symptoms and signs concerning food and fluid intake Status: Acute (10) DVT prophylaxis Status: Acute <Korina Joe - 10/16/17 20:03> (1) Acute exacerbation of chronic obstructive airways disease Code(s): J44.1 - Chronic obstructive pulmonary disease with (acute) exacerbation Status: Acute Plan: Patient met severe sepsis criteria on admission due to tachypnea of 24, WBC count of 12.9 and LA of 2.3. WBC count may be falsely elevated due to recent steroid use and lactic acid may be falsely elevated due to patient's increased work of breath for the past couple of days. Patient admits to increased dyspnea with mild exertion and cough with chest congestion. CXR was consistent with COPD history, no obvious consolidation suggestive of pneumonia. Patient has a cardiac history of CAD with stent placement, but denies chest pain. Patient is stable for discharge from a medical standpoint at this time. Plan for discharge today, has been cleared by Pulm. medications: -Albuterol nebulizer treatment 1 amp q4h and 2.5 mg q2hr PRN -Solumedrol 40 mg IV q12h, will change to Prednisone 50mg PO daily for 3 days. -Guaifenesin 600 mg PO BID -Azithromycin 500 mg PO daily for coverage of atypicals -Zosyn 4.5 g IV q6 for broad coverage antibiotic therapy, due to patients increased risk for pseudomonal infection -Continue home Theopylline 100 mg PO daily -Tessalon Perles 200 mg PO q8h PRN for cough ordered: -Respiratory acapella q4h ordered -Incentive spirometry ordered (2) Difficulty swallowing Code(s): R13.10 - Dysphagia, unspecified Status: Acute Plan: Patient reporting history of difficulty swallowing for "quite some time." -Speech therapy recommended mechanical soft diet. -Plan to adjust diet as tolerated. -Head of bed to be elevated to assist with respiratory symptoms as well as decrease aspiration risk (3) Diabetes mellitus Code(s): E11.9 - Type 2 diabetes mellitus without complications Plan: Patient with hx of DM. BGL likely elevated due to recently increased dose of steroids for COPD exacerbation. -Insulin Sliding Scale ordered -Hold home glipizide (4) Atrial fibrillation Code(s): I48.91 - Unspecified atrial fibrillation Status: Chronic Plan: Patient with hx of atrial fibrillation. Rate well controlled, on Metoprolol. On Warfarin for anticoagulation, INR therapeutic at 2.1. Plan to discuss with cardiology possibility of alternate medication to metoprolol due to patient's poor respiratory status. -EKG: Normal sinus rhythm. No interval abnormalities appreciated. No obvious ST elevation/depression. (Per medical team read) -Telemetry -Continue home medications: Metoprolol 50 mg PO q12h and Warfarin 3mg PO daily (5) HTN (hypertension) Code(s): I10 - Essential (primary) hypertension Status: Chronic Plan: Patient has a hx of HTN -Continue home medications: Lisinopril 10 mg PO BID and Metoprolol 50 mg PO q12h -Clonidine 0.1 mg PO q6h PRN (6) Hyperlipemia Code(s): E78.5 - Hyperlipidemia, unspecified Status: Chronic Plan: Patient has hx of HDL -Continue home medication: Atorvastatin 20 mg PO HS (7) Hx of coronary artery disease Code(s): Z86.79 - Personal history of other diseases of the circulatory system Status: Chronic Plan: Patient has hx of CAD with stent placement x4 -EKG as above -Troponin I negative x2 (8) Sleep disturbance Code(s): G47.9 - Sleep disorder, unspecified Status: Chronic Plan: Patient states that he normally takes Alprazolam 0.5 mg at home before bedtime for sleep. -Continue home Alprazolam 0.5 mg PO HS (9) Nutrition, metabolism, and development symptoms Code(s): R63.8 - Other symptoms and signs concerning food and fluid intake Status: Acute Plan: Fluids: Deferred as patient is tolerating oral fluids well Electrolytes: No current abnormalities, will continue to monitor and replete as necessary Nutrition: Diabetic diet, mechanical soft and thin liquids recommended per speech therapy Physical therapy ordered (10) DVT prophylaxis Status: Acute Plan: DVT prophylaxis: Continue Warfarin 3mg PO daily. Bilateral SCDs. <Malia Mccoy - 10/16/17 15:51> - Assessment and Plan 87 year old male with hx of COPD, DM, atrial fibrillation and HTN, presented to the ED for shortness of breath consistent with COPD exacerbation <Malia Mccoy - 10/16/17 09:58> - Attending Attestation Patient seen and examined this morning, discussed with Dr Mccoy. I agree with assessment and management as documented and discussed with me. Pt reports feeling much better this morning. He has been ambulating to the bathroom without difficulty. He feels ready for discharge and expressed appreciation for his care. Discharge home today. <Korina Joe - 10/16/17 20:03> <Malia Mccoy - Last Filed: 10/16/17 15:51> (2) Difficulty swallowing Qualifiers: Dysphagia type: unspecified Qualified Code(s): R13.10 - Dysphagia, unspecified (3) Diabetes mellitus Qualifiers: Diabetes mellitus type: type 2 Diabetes mellitus ceramic coater insulin use: without ceramic coater use Diabetes mellitus complication status: with unspecified complications Qualified Code(s): E11.8 - Type 2 diabetes mellitus with unspecified complications <Vey,Korina - Last Filed: 10/16/17 20:03> (2) Difficulty swallowing Qualifiers: Dysphagia type: unspecified Qualified Code(s): R13.10 - Dysphagia, unspecified (3) Diabetes mellitus Qualifiers: Diabetes mellitus type: type 2 Diabetes mellitus residential insulin use: without residential use Diabetes mellitus complication status: with unspecified complications Qualified Code(s): E11.8 - Type 2 diabetes mellitus with unspecified complications <Malia Mccoy - Last Filed: 10/16/17 15:51> (2) Difficulty swallowing Qualifiers: Dysphagia type: unspecified Qualified Code(s): R13.10 - Dysphagia, unspecified (3) Diabetes mellitus Qualifiers: Diabetes mellitus type: type 2 Diabetes mellitus ceramic coater insulin use: without residential use Diabetes mellitus complication status: with unspecified complications Qualified Code(s): E11.8 - Type 2 diabetes mellitus with unspecified complications <Vey,Korina - Last Filed: 10/16/17 20:03> (2) Difficulty swallowing Qualifiers: Dysphagia type: unspecified Qualified Code(s): R13.10 - Dysphagia, unspecified (3) Diabetes mellitus Qualifiers: Diabetes mellitus type: type 2 Diabetes mellitus residential insulin use: without ceramic coater use Diabetes mellitus complication status: with unspecified complications Qualified Code(s): E11.8 - Type 2 diabetes mellitus with unspecified complications
[2017-10-16 10:01] LABS: Anion Gap 5 meq/L (5-15); Blood Urea Nitrogen 22 mg/dL (7-18); Calcium 8.5 mg/dL (8.5-10.1); Carbon Dioxide 33.2 meq/L (21.0-32.0); Chloride 102 meq/L (98-107); Glomerular Filtration Rate Greater Than 89 mL/min (>89); Glucose,Random 151 mg/dL (74-106); Sodium 140 meq/L (136-145)
[2017-10-16] MEDS: Theophylline ER 24 HR 100 MG Capsule PO SCH (10:18)
--- NOTE | 2017-10-30 19:18 | P.DS ---
Date of admission: 10/13/17 14:44 Primary care physician: Jamse Matson Brief History from admission: 87 year old male with history of COPD, atrial fibrillation, DM, HTN and CAD with stent placement presents to the ED with worsening shortness of breath and dyspnea with minimal exertion for the past 10 days. Patient states that he is now unable to walk short distances without getting short of breath. He normally only uses oxygen at night and during the day, rarely, as needed, but recently has started to require O2 up to 4L frequently throughout the day. During the interview he was unable to finish sentences without needed sounding out of breath. He admits to increased cough, without sputum. However, he states that has chest congestion and feels like his chest is full of mucus, but remains he is unable to cough anything up at this time. He also notes that his voice sounds hoarse to him. Denies recent fever, chills, chest pain, abdominal pain, leg pain, lightheadedness or fall. His current pulmonary regimen includes Stiolto 2 pufs BID, Asmanex 2 puffs daily , Albuterol nebulizer treatments TID, Prednisone 5 mg daily, Theophylline 100 mg daily, proventil as needed and O2 2L at night. Sees [facility] Dr. Krishnan, who placed him on a five day regimen of Prednisone 10mg PO BID for increased shortness of breath, about 5 days ago. He has been hospitalized in the past, multiple times for similar symptoms. Denies prior intubation. Patient also notes recent UTI a couple of weeks ago, first treated with Cipro, then 1 week later with Macrobid. No urinary complaints currently. DS: Diagnosis - Discharge Diagnosis (1) Acute exacerbation of chronic obstructive airways disease Status: Acute (2) Difficulty swallowing Status: Acute (3) Diabetes mellitus (4) Atrial fibrillation Status: Chronic (5) HTN (hypertension) Status: Chronic (6) Hyperlipemia Status: Chronic (7) Hx of coronary artery disease Status: Chronic (8) Sleep disturbance Status: Chronic (9) Nutrition, metabolism, and development symptoms Status: Acute (10) DVT prophylaxis Status: Acute DS: Medications - Discharge Medications Prescriptions: lisinopril 20 mg PO BID #60 tab DS: Summary Hospital Course: This is a 87-year-old male with history of COPD, atrial fibrillation, diabetes, hypertension and CAD with stent placement admitted for shortness of breath and dyspnea consistent with COPD exacerbation. Patient had severe sepsis criteria on admission due to tachypnea, elevated white blood cell count, and lactic acid elevation, likely falsely elevated due to patient's increased work of breath over the prior week. Blood cultures 2 negative for growth for 5 days. ACS rule out negative in the ED. Patient started on albuterol breathing treatment, IV Solu-Medrol, guaifenesin, theophylline, and Tessalon pearls for likely COPD exacerbation. Chest x-ray did not show any consolidations consistent with pneumonia, but due to patient's respiratory history he was started on empiric anabiotic treatment for pneumonia. Pulmonology consult requested by patient, who agreed with treatment plan. Patient discharged in stable condition to home. Patient to follow-up with primary care provider for hospital follow-up and [facility]. - Time Spent with Patient Total time spent providing and/or coordinating discharge services: - Quality: VTE Deep Vein Thrombosis/Pulmonary Embolism Present on Admission: No Results Procedures completed during hospitalization: none - Impressions ITS Impressions Chest X-Ray 10/13/17 11:48 CONCLUSION: No acute cardiopulmonary disease. Discharge Plan - Discharge Disposition Patient Disposition: Discharge Home - Discharge Condition Condition: Stable - Discharge Order Discharge Orders: Discharge Order (Routine); Ordered 10/16/17 Ordered By: Malia Mccoy - Physicians Team Attending Provider: Korina Joe Other Providers: Js Krishnan MD
== END 2017-10-16 12:35 | disposition home or self-care (01) ==
LOC: NEDA 11:24 → NEPC 11:24 → N04 17:10
PROVIDERS: ADMIT Family Medicine; ATTEND Family Medicine